=== PATIENT | female | born 1950 | race Caucasian/White ===

== ENCOUNTER 2021-08-29 10:31 | Inpatient (IN) ==
[2021-08-29 11:13] LABS: Appearance Urine Clear (Clear); Bilirubin Urine Negative (Negative); Blood Urine Negative (Negative); Color Urine Yellow; Glucose Urine UA 3+ (Negative); Ketones Urine Trace (Negative); Leukocyte Esterase Urine Negative (Negative); Nitrite Urine Negative (Negative); Protein Urine Negative (Negative); Specific Gravity Urine 1.033 (1.000-1.030); Urobilinogen Urine Negative (Negative); pH Urine 7.5 (4.5-7.5)
[2021-08-29] MEDS ORDERED: SODIUM CHLORIDE 0.9% 1000ML 1,000 ML IV SCH (11:15)
--- NOTE | 2021-08-29 11:25 | Emergency Department Note ---
Impression & Plan HHNC (hyperglycemic hyperosmolar nonketotic coma), Acute hyperkalemia, Acute dehydration, JOEL (acute kidney injury), Weakness ED Provider Note NAME: OSIRIS MARIE AGE: 70 SEX: F : 1950 ARRIVES VIA: Ambulance INFORMANT: Patient, ED PROVIDER(S): Saurabh Jain DO CHIEF COMPLAINT: Weakness HPI: The patient is a 70-year-old female who presented to the emergency department for an evaluation of generalized weakness. The patient does not have any medical issues. Apparently the patient does not see a physician and has not been seen for many years. She states that she started noticing generalized weakness frequency and polyuria and polydipsia over the course the last few weeks. Her son presented to the emergency department with her stating that she does not have any medical issues but he could tell that she has been having significant difficulty with ambulation as well as her thought process. There is been no reported trauma. The patient's been confused at times. She denies having any headache. She denies having any chest pain. She denies having any abdominal pain. She denies having any black or bloody bowel moods. She has had no recent traveling. She has not been seen by a provider because she has no primary care physician. She was noted to have an elevated blood sugar in triage. ROS: See above HPI for pertinent positives & negatives. A total of 10 systems reviewed and were otherwise negative. PAST MEDICAL HISTORY: See Below PAST SURGICAL HISTORY: See Below FAMILY HISTORY: See Below SOCIAL HISTORY: See Below HOME MEDICATIONS: See Below ALLERGIES: See Below VITALS: See Below PHYSICAL EXAMINATION: GENERAL: The patient is awake and answering questions appropriately. She is slow to answer questions. EYES: The conjunctivae are clear. The pupils are round and reactive. EARS, NOSE, MOUTH AND THROAT: The nose is without any evidence of any deformity. Mucous membranes are dry. NECK: The neck is nontender and supple. RESPIRATORY: Normal respiratory effort is noted there is no evidence of wheezing rhonchi or rales CARDIOVASCULAR: Regular rate and rhythm noted there no murmurs rubs or gallops normal S1 normal S2. GASTROINTESTINAL: The abdomen is soft. Abdomen is nontender. MUSCULOSKELETAL/EXTREMITIES: There is no evidence of gross deformity full range of motion is noted in the hips and shoulders. SKIN: There is no obvious evidence of any rash. There are no petechiae, pallor or cyanosis noted. NEUROLOGIC: Patient is awake and oriented to person place and situation. Strength is symmetric but diminished bilaterally. Patellar tendon reflexes are 2+ bilaterally. MEDICAL DECISION MAKING: The patient is a 70-year-old female who presented to the emergency department for generalized weakness and confusion. She is also been reporting polyuria and polydipsia. The patient was treated with IV fluids in the emergency department. She was reevaluated multiple times. The patient was also started on an insulin drip for presumed hyperglycemia with hyper kalemia and hyperosmolar state. I discussed patient's laboratory and radiographic studies with her. She was feeling much better on subsequent reevaluation. [facility] also [facility] They have agreed to evaluate the patient in the emergency department for further management and disposition. Triage Nursing notes reviewed. Prior medical records reviewed Vital Signs: reviewed and remarkable for elevated blood pressure Differential diagnosis: Infection, dehydration, metabolic abnormality, hypo/hyperglycemia, electrolyte disturbance, anemia, hypoxia, cardiac sources, intracerebral event, toxicologic, neurologic, as well as other pathologies. ER treatment provided: See below Diagnostics interpreted by me: ECG: EKG was obtained in the emergency department. My interpretation is normal sinus rhythm at 76 bpm. There is no ectopy. There is no acute ST segment abnormalities noted. No previous tracing was available. Cardiac Monitoring: An order was placed for continuous cardiac monitoring. The monitor shows a rate of 76 bpm with sinus rhythm. Laboratory studies: As stated above and show below. Imaging studies: See below Consultation(s): I discussed this case with Dr. Salazar who [facility] ED COURSE: Procedures: none Critical Care: I have personally spent greater than 55 minutes of critical care time in the direct management of this patient. This includes bedside care, interpretation of diagnostic studies, and testing, discussion with consultants, patient, and family members, and other required patient management activities. This 55 minutes is in excess of all separately billable procedures. Past Med/Surg History Medical History History of tobacco use Surgical History History of cholecystectomy Social History Smoking Status: Current every day smoker Feels Safe at Home: Yes Results & Data (ED) Vital Signs Vital Signs - 24 hr 08/29/21 10:42 08/29/21 11:28 Temperature 36.9 C Temperature Source Oral Pulse Rate 81 76 Pulse Rate [Apical] 81 Respiratory Rate 20 18 Respiratory Effort / Characteristics Non-Labored Spontaneous Respiratory Depth Normal Respiratory Pattern Regular Blood Pressure 217/61 H Blood Pressure [Right Arm] 217/61 H Blood Pressure Mean 113 Blood Pressure Mean [Right Arm] 113 Pulse Oximetry 94 94 Oxygen Delivery Method Room Air Room Air Sepsis Recent Fever Within 48 Hours No Sepsis New/Unexplained Change in Mental Status No Sepsis Action Taken by Nursing No Action Required Home Medications Current Medication List: was personally reviewed by me Laboratory Data Attestation: I reviewed the patient's lab results. Result diagrams: 08/29/21 11:10 08/29/21 11:10 Lab Results 08/29/21 08/29/21 08/29/21 Range/Units 10:51 10:59 11:10 WBC (4.8-10.8) K/uL RBC (4.2-5.4) M/uL Hgb (12.0-16.0) g/dL Hct (37-47) % MCV (80-100) fL MCH (25-34) pg MCHC (32-36) g/dL Plt Count (130-400) K/uL Immature Gran % (Auto) % Neut % (Auto) % Lymph % (Auto) % [place] % (Auto) % Eos % (Auto) % Baso % (Auto) % Neut # (Auto) (1.4-6.5) K/uL Lymph # (Auto) (1.2-3.4) K/uL [place] # (Auto) (0.11-0.59) K/uL Eos # (Auto) (0-0.5) K/uL Baso # (Auto) (0-0.2) K/uL Immature Gran # (Auto) (0.00-0.02) K/uL PT 10.3 (9.0-12.0) Seconds INR 1.0 (0.9-1.1) APTT 22.4 (21.0-31.0) Seconds PTT Ratio 0.8 VBG pH (7.36-7.41) VBG pCO2 (38-50) mmHg VBG pO2 mmHg VBG HCO3 mmol/L VBG O2 Saturation % VBG Base Excess mEq/L Barometric Pressure mm/Hg Sodium (136-145) mmol/L Potassium (3.5-5.1) mmol/L Chloride (98-107) mmol/L Carbon Dioxide (21-32) mmol/L Anion Gap (3-11) BUN (6-23) mg/dl Creatinine (0.6-1.2) mg/dl Est Cr Clr Drug Dosing ml/min Est GFR ( Amer) ml/min Est GFR (Non-Af Amer) ml/min BUN/Creatinine Ratio (10-20) Glucose (70-99(Fasting)) mg/dl POC Glucose > 600 H* (70-99) mg/dl Calcium (8.5-10.1) mg/dl Magnesium (1.7-2.4) mg/dl Total Bilirubin (0.2-1.0) mg/dl AST (13-39) U/L ALT (7-52) U/L Alkaline Phosphatase (34-104) U/L Total Creatine Kinase (26-192) U/L Troponin I High Sens (0-14) pg/ml Total Protein (6.0-8.3) gm/dl Albumin (3.4-5.0) gm/dl Globulin (2.5-4.0) gm/dl Albumin/Globulin Ratio (0.9-2) TSH (0.300-4.500) uIu/ml Urine Color Yellow Urine Appearance Clear (Clear) Urine pH 7.5 (4.5-7.5) Ur Specific [place] 1.033 H (1.000-1.030) Urine Protein Negative (Negative) Urine Glucose (UA) 3+ H (Negative) Urine Ketones Trace H (Negative) Urine Blood Negative (Negative) Urine Nitrite Negative (Negative) Urine Bilirubin Negative (Negative) Urine Urobilinogen Negative (Negative) Ur Leukocyte Esterase Negative (Negative) SARS-CoV-2, RNA, NAAT (NEGATIVE) 08/29/21 08/29/21 08/29/21 Range/Units 11:10 11:10 11:10 WBC 15.35 H (4.8-10.8) K/uL RBC 5.29 (4.2-5.4) M/uL Hgb 16.2 H (12.0-16.0) g/dL Hct 49.0 H (37-47) % MCV 92.6 (80-100) fL MCH 30.6 (25-34) pg MCHC 33.1 (32-36) g/dL Plt Count 344 (130-400) K/uL Immature Gran % (Auto) 0.3 % Neut % (Auto) 82.5 % Lymph % (Auto) 11.3 % [place] % (Auto) 5.5 % Eos % (Auto) 0.3 % Baso % (Auto) 0.1 % Neut # (Auto) 12.66 H (1.4-6.5) K/uL Lymph # (Auto) 1.73 (1.2-3.4) K/uL [place] # (Auto) 0.85 H (0.11-0.59) K/uL Eos # (Auto) 0.05 (0-0.5) K/uL Baso # (Auto) 0.01 (0-0.2) K/uL Immature Gran # (Auto) 0.05 H (0.00-0.02) K/uL PT (9.0-12.0) Seconds INR (0.9-1.1) APTT (21.0-31.0) Seconds PTT Ratio VBG pH (7.36-7.41) VBG pCO2 (38-50) mmHg VBG pO2 mmHg VBG HCO3 mmol/L VBG O2 Saturation % VBG Base Excess mEq/L Barometric Pressure mm/Hg Sodium 117 L* (136-145) mmol/L Potassium 6.7 H* (3.5-5.1) mmol/L Chloride 80 L (98-107) mmol/L Carbon Dioxide 25 (21-32) mmol/L Anion Gap 12 H (3-11) BUN 26 H (6-23) mg/dl Creatinine 1.30 H (0.6-1.2) mg/dl Est Cr Clr Drug Dosing 38.6 ml/min Est GFR ( Amer) 47.8 ml/min Est GFR (Non-Af Amer) 41.2 ml/min BUN/Creatinine Ratio 20.0 (10-20) Glucose 1223 H* (70-99(Fasting)) mg/dl POC Glucose (70-99) mg/dl Calcium 9.5 (8.5-10.1) mg/dl Magnesium 2.4 (1.7-2.4) mg/dl Total Bilirubin 0.6 (0.2-1.0) mg/dl AST 11 L (13-39) U/L ALT 16 (7-52) U/L Alkaline Phosphatase 127 H (34-104) U/L Total Creatine Kinase 51 (26-192) U/L Troponin I High Sens 11.0 (0-14) pg/ml Total Protein 7.8 (6.0-8.3) gm/dl Albumin 3.9 (3.4-5.0) gm/dl Globulin 3.9 (2.5-4.0) gm/dl Albumin/Globulin Ratio 1.0 (0.9-2) TSH 1.326 (0.300-4.500) uIu/ml Urine Color Urine Appearance (Clear) Urine pH (4.5-7.5) Ur Specific [place] (1.000-1.030) Urine Protein (Negative) Urine Glucose (UA) (Negative) Urine Ketones (Negative) Urine Blood (Negative) Urine Nitrite (Negative) Urine Bilirubin (Negative) Urine Urobilinogen (Negative) Ur Leukocyte Esterase (Negative) SARS-CoV-2, RNA, NAAT (NEGATIVE) 08/29/21 08/29/21 08/29/21 Range/Units 11:22 11:25 11:52 WBC (4.8-10.8) K/uL RBC (4.2-5.4) M/uL Hgb (12.0-16.0) g/dL Hct (37-47) % MCV (80-100) fL MCH (25-34) pg MCHC (32-36) g/dL Plt Count (130-400) K/uL Immature Gran % (Auto) % Neut % (Auto) % Lymph % (Auto) % [place] % (Auto) % Eos % (Auto) % Baso % (Auto) % Neut # (Auto) (1.4-6.5) K/uL Lymph # (Auto) (1.2-3.4) K/uL [place] # (Auto) (0.11-0.59) K/uL Eos # (Auto) (0-0.5) K/uL Baso # (Auto) (0-0.2) K/uL Immature Gran # (Auto) (0.00-0.02) K/uL PT (9.0-12.0) Seconds INR (0.9-1.1) APTT (21.0-31.0) Seconds PTT Ratio VBG pH 7.37 (7.36-7.41) VBG pCO2 48 (38-50) mmHg VBG pO2 43 mmHg VBG HCO3 27 mmol/L VBG O2 Saturation 74.8 % VBG Base Excess 1.3 mEq/L Barometric Pressure 733.2 mm/Hg Sodium (136-145) mmol/L Potassium (3.5-5.1) mmol/L Chloride (98-107) mmol/L Carbon Dioxide (21-32) mmol/L Anion Gap (3-11) BUN (6-23) mg/dl Creatinine (0.6-1.2) mg/dl Est Cr Clr Drug Dosing ml/min Est GFR ( Amer) ml/min Est GFR (Non-Af Amer) ml/min BUN/Creatinine Ratio (10-20) Glucose (70-99(Fasting)) mg/dl POC Glucose > 600 H* (70-99) mg/dl Calcium (8.5-10.1) mg/dl Magnesium (1.7-2.4) mg/dl Total Bilirubin (0.2-1.0) mg/dl AST (13-39) U/L ALT (7-52) U/L Alkaline Phosphatase (34-104) U/L Total Creatine Kinase (26-192) U/L Troponin I High Sens (0-14) pg/ml Total Protein (6.0-8.3) gm/dl Albumin (3.4-5.0) gm/dl Globulin (2.5-4.0) gm/dl Albumin/Globulin Ratio (0.9-2) TSH (0.300-4.500) uIu/ml Urine Color Urine Appearance (Clear) Urine pH (4.5-7.5) Ur Specific [place] (1.000-1.030) Urine Protein (Negative) Urine Glucose (UA) (Negative) Urine Ketones (Negative) Urine Blood (Negative) Urine Nitrite (Negative) Urine Bilirubin (Negative) Urine Urobilinogen (Negative) Ur Leukocyte Esterase (Negative) SARS-CoV-2, RNA, NAAT NEGATIVE (NEGATIVE) 08/29/21 Range/Units 12:29 WBC (4.8-10.8) K/uL RBC (4.2-5.4) M/uL Hgb (12.0-16.0) g/dL Hct (37-47) % MCV (80-100) fL MCH (25-34) pg MCHC (32-36) g/dL Plt Count (130-400) K/uL Immature Gran % (Auto) % Neut % (Auto) % Lymph % (Auto) % [place] % (Auto) % Eos % (Auto) % Baso % (Auto) % Neut # (Auto) (1.4-6.5) K/uL Lymph # (Auto) (1.2-3.4) K/uL [place] # (Auto) (0.11-0.59) K/uL Eos # (Auto) (0-0.5) K/uL Baso # (Auto) (0-0.2) K/uL Immature Gran # (Auto) (0.00-0.02) K/uL PT (9.0-12.0) Seconds INR (0.9-1.1) APTT (21.0-31.0) Seconds PTT Ratio VBG pH (7.36-7.41) VBG pCO2 (38-50) mmHg VBG pO2 mmHg VBG HCO3 mmol/L VBG O2 Saturation % VBG Base Excess mEq/L Barometric Pressure mm/Hg Sodium (136-145) mmol/L Potassium (3.5-5.1) mmol/L Chloride (98-107) mmol/L Carbon Dioxide (21-32) mmol/L Anion Gap (3-11) BUN (6-23) mg/dl Creatinine (0.6-1.2) mg/dl Est Cr Clr Drug Dosing ml/min Est GFR ( Amer) ml/min Est GFR (Non-Af Amer) ml/min BUN/Creatinine Ratio (10-20) Glucose (70-99(Fasting)) mg/dl POC Glucose > 600 H* (70-99) mg/dl Calcium (8.5-10.1) mg/dl Magnesium (1.7-2.4) mg/dl Total Bilirubin (0.2-1.0) mg/dl AST (13-39) U/L ALT (7-52) U/L Alkaline Phosphatase (34-104) U/L Total Creatine Kinase (26-192) U/L Troponin I High Sens (0-14) pg/ml Total Protein (6.0-8.3) gm/dl Albumin (3.4-5.0) gm/dl Globulin (2.5-4.0) gm/dl Albumin/Globulin Ratio (0.9-2) TSH (0.300-4.500) uIu/ml Urine Color Urine Appearance (Clear) Urine pH (4.5-7.5) Ur Specific [place] (1.000-1.030) Urine Protein (Negative) Urine Glucose (UA) (Negative) Urine Ketones (Negative) Urine Blood (Negative) Urine Nitrite (Negative) Urine Bilirubin (Negative) Urine Urobilinogen (Negative) Ur Leukocyte Esterase (Negative) SARS-CoV-2, RNA, NAAT (NEGATIVE) Administered Medications Sodium Chloride (Nss 1000ml) 1,000 mls @ 999 mls/hr IV .Q1H1M ONE Stop: 08/29/21 13:11 Last Admin: 08/29/21 12:23 Dose: 999 mls/hr Documented by: [id number] Discontinued Medications Sodium Chloride (Nss 1000ml) 1,000 mls @ 999 mls/hr IV .Q1H1M FAREED Stop: 08/29/21 12:15 Last Infusion: 08/29/21 11:57 Dose: 0 mls/hr Documented by: [id number] Admin: 08/29/21 11:28 Dose: 999 mls/hr Documented by: [id number] Imaging Data Radiologist's Impression: Head CT 08/29/21 11:05 CT SCAN OF THE BRAIN WITHOUT IV CONTRAST CLINICAL HISTORY: Generalized weakness. COMPARISON STUDY: No priors. TECHNIQUE: Unenhanced axial CT scan of the brain is performed from the vertex to the skull base. A dose lowering technique was utilized adhering to the principles of ALARA. CT DOSE: 537.48 mGy.cm FINDINGS: Brain parenchyma: There are age-related involutional changes noting mild subcortical and periventricular microangiopathic change. There is no hemorrhage, mass effect, or evidence of acute territorial ischemia by CT criteria. Yu- white matter differentiation is preserved. No extra-axial fluid collection is seen. Ventricles, sulci, cisterns: Prominent secondary to involutional change. Intracranial vasculature: There is atherosclerotic calcification of the cavernous carotid and vertebral arteries. Calvarium: Unremarkable. Sinuses and mastoids: There is trace mucosal thickening within the ethmoid sinuses. The remaining visualized paranasal sinuses are clear. The mastoid air cells are well pneumatized. Orbits: The bony orbits are grossly intact. IMPRESSION: There is no hemorrhage, mass effect, or evidence of acute territor ial ischemia by CT criteria. ACT 112: Negative or not required by law. Electronically signed by: Amanuel Lainez M.D. 08/29/2021 12:11 PM Chest X-Ray 08/29/21 11:06 SINGLE VIEW CHEST CLINICAL HISTORY: Generalized weakness. FINDINGS: An AP, portable, upright chest radiograph is obtained. No prior studies are available for comparison at the time of dictation. The examination i s degraded by portable technique and patient rotation. The heart is top normal for projection noting atherosclerotic calcification of the thoracic aorta. The pulmonary vasculature is noncongested. There is mild bibasilar scarring/atelectasis. The lungs and pleural spaces are otherwise clear. No pneu mothorax is seen. The skeletal structures are osteopenic. The bony thorax is grossly intact. IMPRESSION: No active disease in the chest. ACT 112: Negative or not required by law. Electronically signed by: Amanuel Lainez M.D. 08/29/2021 12:35 PM Discharge Plan Visit Data Chief Complaint: Hyperglycemia Stated Complaint: HYPERGLYCEMIA ED Provider: Saurabh Jain Discharge Problem: HHNC (hyperglycemic hyperosmolar nonketotic coma), Acute hyperkalemia, Acute dehydration, JOEL (acute kidney injury), Weakness Patient Disposition: Being Evaluated by Hospitalist Forms Stand Alone Forms: My [facility] Referrals Referrals: PCP,NO [Primary Care Provider] -
[2021-08-29 11:33] LABS: Partial Thromboplastin Ratio 0.8; Partial Thromboplastin Time 22.4 Seconds (21.0-31.0); Prothrombin Time 10.3 Seconds (9.0-12.0)
[2021-08-29 11:54] LABS: Basophils # (auto) 0.01 K/uL (0-0.2); Basophils % (auto) 0.1 %; Eosinophils # (auto) 0.05 K/uL (0-0.5); Eosinophils % (auto) 0.3 %; Hemoglobin 16.2 g/dL (12.0-16.0); Immature Granulocytes # (auto) 0.05 K/uL (0.00-0.02); Immature Granulocytes % (auto) 0.3 %; Lymphocytes # (auto) 1.73 K/uL (1.2-3.4); Lymphocytes % (auto) 11.3 %; Mean Corpuscular Hemoglobin 30.6 pg (25-34); Mean Corpuscular Hgb Conc 33.1 g/dL (32-36); Mean Corpuscular Volume 92.6 fL (80-100); Monocytes # (auto) 0.85 K/uL (0.11-0.59); Monocytes % (auto) 5.5 %; Neutrophils # (auto) 12.66 K/uL (1.4-6.5); Neutrophils % (auto) 82.5 %; Platelet Count 344 K/uL (130-400); Red Blood Count 5.29 M/uL (4.2-5.4); White Blood Count 15.35 K/uL (4.8-10.8)
[2021-08-29 12:07] LABS: Albumin Level 3.9 gm/dl (3.4-5.0); Bilirubin,Total 0.6 mg/dl (0.2-1.0); Calcium 9.5 mg/dl (8.5-10.1); Creatinine Clr Calc Pharmacy 38.6 ml/min; Est GFR (African American) 47.8 ml/min; Est GFR (Non-African American) 41.2 ml/min; Globulin 3.9 gm/dl (2.5-4.0); Magnesium 2.4 mg/dl (1.7-2.4); Potassium 6.7 mmol/L (3.5-5.1); Total Protein 7.8 gm/dl (6.0-8.3)
[2021-08-29 12:11] LABS: Base Excess VBG 1.3 mEq/L; Oxygen Saturation VBG 74.8 %; pH VBG 7.37 (7.36-7.41)
[2021-08-29] MEDS ORDERED: GLUCOSE 10 TABS/TUBE PO PRN (12:11)
[2021-08-29] MEDS ORDERED: DEXTROSE 50% 50 ML SYRINGE IV PRN (12:11)
[2021-08-29] MEDS ORDERED: STAT INSULIN DRIP STA (12:11)
[2021-08-29] MEDS ORDERED: GLUCAGON FOR INJ 1 MG VIAL SQ PRN (12:11)
[2021-08-29] MEDS ORDERED: GLUCOSE 40% GEL 15 GM TUBE PO PRN (12:11)
[2021-08-29] MEDS ORDERED: SODIUM CHLORIDE 0.9% 1000ML 1,000 ML IV ONE (12:11)
[2021-08-29] MEDS ORDERED: HHS GOAL RANGE 250-350 mg/dl ONE (12:11)
[2021-08-29] MEDS ORDERED: CARBOHYDRATES FOR HYPOGLYCEMIA PO PRN (12:11)
--- NOTE | 2021-08-29 12:12 | CT Scan Report ---
CT SCAN OF THE BRAIN WITHOUT IV CONTRAST CLINICAL HISTORY: Generalized weakness. COMPARISON STUDY: No priors. TECHNIQUE: Unenhanced axial CT scan of the brain is performed from the vertex to the skull base. A do se lowering technique was utilized adhering to the principles of ALARA. CT DOSE: 537.48 mGy.cm FINDINGS: Brain parenchyma: There are age-related involutional changes noting mild subcortical and periventric ular microangiopathic change. There is no hemorrhage, mass effect, or evidence of acute territorial i schemia by CT criteria. Yu-white matter differentiation is preserved. No extra-axial fluid collecti on is seen. Ventricles, sulci, cisterns: Prominent secondary to involutional change. Intracranial vasculature: There is atherosclerotic calcification of the cavernous carotid and vertebr al arteries. Calvarium: Unremarkable. Sinuses and mastoids: There is trace mucosal thickening within the ethmoid sinuses. The remaining vis ualized paranasal sinuses are clear. The mastoid air cells are well pneumatized. Orbits: The bony orbits are grossly intact. IMPRESSION: There is no hemorrhage, mass effect, or evidence of acute territorial ischemia by CT francisco sherwood. ACT 112: Negative or not required by law. Electronically signed by: Amanuel Lainez M.D. 08/29/2021 12:11 PM
[2021-08-29] MEDS ORDERED: NovoLIN-R BOLUS FROM BAG IV ONE (12:15)
[2021-08-29] MEDS ORDERED: CALCIUM CHLORIDE 10% 1,000 MG in DEXTROSE 5% 50 ML IV STA (12:25)
--- NOTE | 2021-08-29 12:37 | XRay Report ---
SINGLE VIEW CHEST CLINICAL HISTORY: Generalized weakness. FINDINGS: An AP, portable, upright chest radiograph is obtained. No prior studies are available for c omparison at the time of dictation. The examination is degraded by portable technique and patient rot ation. The heart is top normal for projection noting atherosclerotic calcification of the thoracic ao rta. The pulmonary vasculature is noncongested. There is mild bibasilar scarring/atelectasis. The dion gs and pleural spaces are otherwise clear. No pneumothorax is seen. The skeletal structures are osteo penic. The bony thorax is grossly intact. IMPRESSION: No active disease in the chest. ACT 112: Negative or not required by law. Electronically signed by: Amanuel Lainez M.D. 08/29/2021 12:35 PM
[2021-08-29] MEDS: INSULIN REGULAR 250 UNITS in SODIUM CHLORIDE 0.9% 247.5 ML IV SCH (13:08)
[2021-08-29] MEDS ORDERED: PHARMACY GLYCEMIC MGMT CONSULT PRN (13:17)
--- NOTE | 2021-08-29 13:32 | History & Physical Report ---
Date of Service August 29, 2021 Assessment & Plan (1) Type 2 diabetes mellitus with hyperosmolar hyperglycemic state (HHS): Plan: No known history of diabetes and have not been to a doctor for more than 10 years Polyuria polydipsia for a while and increasing weakness with increasing thirst for the last 1 and half week No fever and no chills and no infection She has been using a lot of water and juice recently to decreased thirst Has hyperosmolar hyperglycemic diabetic state with a blood sugar of more than 1200 and associated hyponatremia and hyperkalemia with JOEL Started on intravenous insulin and adequate fluid management Glycemic pharmacist has been consulted Monitor PRP and electrolytes (2) Acute hyperkalemia: Plan: Potassium noted to be high at 6.7 Secondary to JOEL and dehydration Will monitor and is expected to improve (3) JOEL (acute kidney injury): Plan: Creatinine is elevated at 1.30 Likely secondary to dehydration Will monitor (4) Pseudohyponatremia: Plan: Sodium level noted to be 117 Secondary to hyperglycemia Will monitor (5) Acute dehydration: Plan: As above (6) Hypertension: Plan: Systolic blood pressure is high at 217 Will start Norvasc (7) Tobacco abuse: Plan: Mild tobacco abuse Will watch for any withdrawal symptoms DVT prophylaxis Subcu Lovenox CODE STATUS Full History of Present Illness Chief Complaint: Progressive weakness with increasing thirst for the last 1-1/2-week and slurred speech for the last day or 2 Primary Care Provider: NO PCP She is a 70-year-old female without significant known past medical history , have not been to a doctor for more than 10 years and been a chronic smoker apparently complaining of increasing weakness with thirst for the last 1-1/2- week. She was also noted to be very dry in her mouth with difficulty speaking and may have mild confusion associated with it. She has had polyuria and polydipsia for a while. Denies any fever and/or chills, any abdominal pain nausea and or vomiting, denies any cough and/or shortness of breath and denies any pain in the chest. No numbness and or tingling involving any of the extremities. She was noted to have a very high blood sugar in the emergency room of more than 1200 with JOEL and systolic high blood pressure at 217. She was a started with intravenous insulin and IV fluid and was admitted to telemetry unit for continuation of care. Allergies Allergy/AdvReac Type Severity Reaction Status Date / Time No Known Allergies Allergy Unverified 08/29/21 13:18 Home Medications Medication Instructions Recorded Confirmed Type No Known Home Medications 08/29/21 08/29/21 History Past Med/Surg History Medical History History of tobacco use Surgical History History of cholecystectomy Social History Smoking Status: Current every day smoker Cigarettes Per Day: 10; Second Hand Exposure: No; Do You Dip or Chew Tobacco: No; Tobacco Cessation Education Requested by Patient: No Hx Alcohol Use: Yes Hx Substance Use: No Preferred Language: Com[place]an Communication Ability: Effective Tool Repairer Required: No Beliefs That Will Affect Care: None Current Living Situation: Alone Other Information That Helps Us Care for You: No Feels Safe at Home: Yes Safety Concerns: Feels Safe At This Time Assistive Devices: None Review of Systems Review of Systems: All systems reviewed & are unremarkable except as noted in HPI & below Physical Exam Physical Exam: Lying in bed comfortably Constitutional: + ill appearing and average body habitus Eyes: PERRL, conjunctivae normal, anicteric sclerae ENMT: external ear and nose normal, oropharynx normal Neck: trachea midline, no thyromegaly Respiratory: no respiratory distress Auscultation: + diminished lung sounds; no crackles and no wheezes Cardiovascular: Rate/Rhythm: regular rate and regular rhythm; not tachycardic Heart Sounds: normal S1 and normal S2; no murmur Extremities: no edema Gastrointestinal (Abdomen): Inspection/Auscultation: normal bowel sounds; abdomen not distended Percussion/Palpation: abdomen soft; abdomen nontender Musculoskeletal: No acute arthritis involving any joint Skin: Very dry Neurologic: PERRL, EOMI, accommodation nl, no face palsy, no dysarthria Psychiatric: A+Ox3, euthymic affect Lymphatic: no cervical or axillary lymphadenopathy Results & Data Results & Data ([facility]) Vital Signs (Past 12 Hours) Vital Signs Temp Pulse Pulse Resp BP BP Pulse Ox 08/29/21 11:28 76 18 94 08/29/21 10:42 36.9 C 81 81 20 217/61 H 217/61 H 94 Laboratory Results Short CBC 08/29/21 Range/Units 11:10 WBC 15.35 H (4.8-10.8) K/uL Hgb 16.2 H (12.0-16.0) g/dL Hct 49.0 H (37-47) % Plt Count 344 (130-400) K/uL BMP 08/29/21 11:10 Sodium 117 L* Potassium 6.7 H* Chloride 80 L Carbon Dioxide 25 BUN 26 H Creatinine 1.30 H Glucose 1223 H* Calcium 9.5 Cardiac Enzymes 08/29/21 Range/Units 11:10 Total Creatine Kinase 51 (26-192) U/L Liver Function 08/29/21 Range/Units 11:10 Total Bilirubin 0.6 (0.2-1.0) mg/dl AST 11 L (13-39) U/L ALT 16 (7-52) U/L Alkaline Phosphatase 127 H (34-104) U/L Albumin 3.9 (3.4-5.0) gm/dl Urine 08/29/21 Range/Units 10:59 Urine Color Yellow Urine Appearance Clear (Clear) Urine pH 7.5 (4.5-7.5) Ur Specific [place] 1.033 H (1.000-1.030) Urine Protein Negative (Negative) Urine Glucose (UA) 3+ H (Negative) Medications Administered Current Inpatient Medications Amlodipine Besylate (Amlodipine Besylate 5 Mg Tab) 5 mg PO QAM FAREED Stop: 09/28/21 13:29 Dextrose (Dextrose 50% 50 Ml Syringe) 25 - 50 ml IV UD PRN; Protocol PRN Reason: Hypoglycemia Protocol Stop: 09/28/21 12:10 Enoxaparin Sodium (Enoxaparin Inj 40 Mg/0.4 Ml Syr) 40 mg SQ QAM FAREED Stop: 09/28/21 13:14 Glucagon (Glucagon For Inj 1 Mg Vial) 1 mg SQ UD PRN; Protocol PRN Reason: Hypoglycemia Protocol Stop: 09/28/21 12:10 Glucose (Glucose 10 Tabs/Tube) 4 - 8 tabs PO UD PRN; Protocol PRN Reason: Hypoglycemia Protocol Stop: 09/28/21 12:10 Glucose (Glucose 40% Gel 15 Gm Tube) 15 - 30 gm PO UD PRN; Protocol PRN Reason: Hypoglycemia Protocol Stop: 09/28/21 12:10 Insulin Human Regular 250 (units/ Sodium Chloride) 250 mls @ 7.2 mls/hr IV .Q24H FAREED; Protocol Stop: 09/28/21 12:14 Last Admin: 08/29/21 13:08 Dose: 7.2 units/hr, 7.2 mls/hr Documented by: Sodium Chloride (Nss 1000ml) 1,000 mls @ 200 mls/hr IV .Q5H FAREED Stop: 08/30/21 04:29 Insulin Aspart (Insulin Aspart Per Unit) 0 units SC ACHS [facility] Stop: 09/28/21 16:29 Miscellaneous (Carbohydrates For Hypoglycemia ) 15 - 30 gm PO UD PRN PRN Reason: Hypoglycemia Protocol Stop: 09/28/21 12:10 Miscellaneous Information (Pharmacy Glycemic Mgmt Consult) 1 ea N/A UD PRN PRN Reason: Consult Stop: 09/28/21 13:16 Code Status & VTE Plan VTE Prophylaxis Plan VTE Prophylaxis will be ordered: Yes
[2021-08-29] MEDS: SODIUM CHLORIDE 0.9% 1000ML 1,000 ML IV SCH ×2 (14:48→20:22)
[2021-08-29 14:51] LABS: BUN Creatinine Ratio 19.5 (10-20); Calcium 10.1 mg/dl (8.5-10.1); Creatinine Clr Calc Pharmacy 44.4 ml/min; Est GFR (African American) 56.6 ml/min; Est GFR (Non-African American) 48.9 ml/min; Magnesium 2.2 mg/dl (1.7-2.4); Phosphorus 3.5 mg/dl (2.5-4.9); Potassium 4.6 mmol/L (3.5-5.1)
[2021-08-29] MEDS: amLODIPine BESYLATE 5 MG TAB PO SCH (15:41)
[2021-08-29] MEDS: ENOXAPARIN INJ 40 MG/0.4 ML SYR SQ SCH (15:41)
[2021-08-29] MEDS: INSULIN ASPART PER UNIT SC SCH ×2 (16:53→21:31)
[2021-08-29 18:44] LABS: BUN Creatinine Ratio 18.8 (10-20); Calcium 9.5 mg/dl (8.5-10.1); Creatinine Clr Calc Pharmacy 49.7 ml/min; Est GFR (African American) 64.9 ml/min; Phosphorus 2.1 mg/dl (2.5-4.9)
[2021-08-29] MEDS: NSS + 20MEQ KCL 20 MEQ/1,000 ML BAG IV SCH (21:00)
[2021-08-29 21:43] LABS: BUN Creatinine Ratio 19.5 (10-20); Calcium 9.2 mg/dl (8.5-10.1); Creatinine Clr Calc Pharmacy 57.7 ml/min; Est GFR (African American) 77.7 ml/min; Magnesium 1.9 mg/dl (1.7-2.4); Phosphorus 2.3 mg/dl (2.5-4.9); Potassium 3.8 mmol/L (3.5-5.1)
[2021-08-30] MEDS: NSS + 20MEQ KCL 20 MEQ/1,000 ML BAG IV SCH ×3 (06:17→19:47)
[2021-08-30 06:58] LABS: Hematocrit (blood only) 37.8 % (37-47); Hemoglobin 12.4 g/dL (12.0-16.0); Mean Corpuscular Hemoglobin 30.2 pg (25-34); Mean Corpuscular Hgb Conc 32.8 g/dL (32-36); Mean Corpuscular Volume 92.2 fL (80-100); Mean Platelet Volume 11.6 fL (7.4-10.4); Platelet Count 278 K/uL (130-400); RDW Coefficient of Variation 12.9 % (11.5-14.5); RDW Standard Deviation 43.7 fL (36.4-46.3); White Blood Count 17.17 K/uL (4.8-10.8)
--- NOTE | 2021-08-30 07:02 | Electrocardiogram Report ---
Test Reason : Blood Pressure : / mmHG Vent. Rate : 076 BPM Atrial Rate : 076 BPM P-R Int : 120 ms QRS Dur : 086 ms QT Int : 374 ms P-R-T Axes : 007 057 054 degrees QTc Int : 420 ms Normal sinus rhythm Normal ECG No previous ECGs available Confirmed by Donnell Alvarado ([id number]) on 08/30/2021 7:02:14 AM Referred By: Confirmed By:Donnell Alvarado
[2021-08-30 07:22] LABS: Basophils # (auto) 0.04 K/uL (0-0.2); Basophils % (auto) 0.2 %; Eosinophils # (auto) 0.41 K/uL (0-0.5); Eosinophils % (auto) 2.4 %; Immature Granulocytes # (auto) 0.06 K/uL (0.00-0.02); Immature Granulocytes % (auto) 0.3 %; Lymphocytes # (auto) 4.29 K/uL (1.2-3.4); Monocytes # (auto) 1.16 K/uL (0.11-0.59); Monocytes % (auto) 6.8 %; Neutrophils # (auto) 11.21 K/uL (1.4-6.5); Neutrophils % (auto) 65.3 %
[2021-08-30 07:25] LABS: Albumin Globulin Ratio 1.1 (0.9-2); Albumin Level 2.9 gm/dl (3.4-5.0); BUN Creatinine Ratio 20.5 (10-20); Bilirubin,Total 0.6 mg/dl (0.2-1.0); Calcium 8.5 mg/dl (8.5-10.1); Creatinine Clr Calc Pharmacy 64.3 ml/min; Est GFR (African American) 88.6 ml/min; Est GFR (Non-African American) 76.5 ml/min; Globulin 2.7 gm/dl (2.5-4.0); Potassium 4.5 mmol/L (3.5-5.1); Total Protein 5.6 gm/dl (6.0-8.3)
[2021-08-30] MEDS ORDERED: INSULIN GLARGINE SOLOSTAR 100 UNITS/ML 3 ML PEN SC ONE ×2 (08:30→09:15)
[2021-08-30] MEDS: INSULIN ASPART PER UNIT SC SCH ×5 (08:40→23:23)
[2021-08-30] MEDS: ENOXAPARIN INJ 40 MG/0.4 ML SYR SQ SCH (08:43)
[2021-08-30] MEDS: amLODIPine BESYLATE 5 MG TAB PO SCH (08:43)
[2021-08-30 09:00] LABS: Estimated Average Glucose 346 mg/dl; Hemoglobin A1C 13.7 % (4.5-5.6)
--- NOTE | 2021-08-30 09:53 | Pharmacy Report ---
Pharmacy Glycemic Short Note 2 - Date of Service August 30, 2021 - Glycemic Short BSG Results (Last 24 hours): 08/29/21 08/29/21 08/29/21 10:51 11:10 11:25 Glucose 1223 H* POC Glucose > 600 H* > 600 H* 08/29/21 08/29/21 08/29/21 12:29 14:14 14:14 Glucose 640 H* Cancelled POC Glucose > 600 H* 08/29/21 08/29/21 08/29/21 15:36 16:29 17:02 Glucose 347 H* POC Glucose 466 H* 389 H* 08/29/21 08/29/21 08/29/21 17:29 18:46 19:41 Glucose POC Glucose 296 H 248 H 213 H 08/29/21 08/29/21 08/29/21 21:12 21:25 23:24 Glucose 157 H POC Glucose 162 H 91 08/29/21 08/30/21 08/30/21 23:45 00:42 01:00 Glucose POC Glucose 272 H 214 H 193 H 08/30/21 08/30/21 08/30/21 01:14 01:29 01:42 Glucose POC Glucose 209 H 185 H 193 H 08/30/21 08/30/21 08/30/21 01:59 02:32 03:00 Glucose POC Glucose 188 H 206 H 192 H 08/30/21 08/30/21 08/30/21 04:02 05:05 05:56 Glucose 210 H POC Glucose 194 H 221 H 08/30/21 08/30/21 08/30/21 06:06 07:13 08:30 Glucose POC Glucose 201 H 238 H > 600 H* 08/30/21 08/30/21 08/30/21 08:31 09:01 09:02 Glucose POC Glucose 340 H* 372 H* 335 H* OUTPATIENT ANTIDIABETIC REGIMEN: * n/a * A1c - 13.7% ASSESSMENT: * 70 year old female admitted with hyperglycemia/HHS, JOEL. Per notes, patient has not been to a doctor in more than 10 years. * Started on insulin drip on arrival per [facility] protocol. Insulin drip held since midnight as BSGs less than lower end of goal range. Spoke with RN this morning and had him resume insulin drip/goal range was adjusted. BSGs trending up due to patient now eating and insulin drip just now resumed * Hard to assess insulin needs since drip held overnight, plan to trial Lantus dose stressed in between 2-3 dosing to help with insulin drip transition. Will continue to monitor today and likely could d/c insulin drip in 4-6 hours as long as blood sugars stable PLAN FOR INPATIENT GLYCEMIC CONTROL: * Hold outpatient oral diabetes medications * Basal insulin * Lantus 30 units x 1 ( to overlap with insulin drip ) * Will reassess Lantus dosing tomorrow AM * Bolus insulin - utilize insulin drip calculator, will adjust to below parameters once insulin drip off * NovoLog per scale ACHS or Q6hrs while NPO * Goal Range: Low 110 mg/dL - High 140 mg/dL * Correction Factor: 30 mg/dL/unit * Nutritional / Prandial insulin per carb ratio of 1 unit per 10 grams CHO consumed
[2021-08-30] MEDS: INSULIN REGULAR 250 UNITS in SODIUM CHLORIDE 0.9% 247.5 ML IV SCH (13:01)
--- NOTE | 2021-08-30 17:19 | Hospitalist Progress Note ---
Date of Service August 30, 2021 Assessment & Plan (1) Type 2 diabetes mellitus with hyperosmolar hyperglycemic state (HHS): Plan: No known history of diabetes and have not been to a doctor for more than 10 years Polyuria polydipsia for a while and increasing weakness with increasing thirst for the last 1 and half week No fever and no chills and no infection She has been using a lot of water and juice recently to decreased thirst Has hyperosmolar hyperglycemic diabetic state with a blood sugar of more than 1200 and associated hyponatremia and hyperkalemia with JOEL Started on intravenous insulin and adequate fluid management Glycemic pharmacist has been consulted Monitor PRP and electrolytes Electrolytes and kidney function normalized She has been started with subcutaneous insulin Diabetic teaching, PT and OT and likely discharge tomorrow (2) Acute hyperkalemia: Plan: Potassium noted to be high at 6.7 Secondary to JOEL and dehydration Will monitor and is expected to improve Potassium became normal (3) JOEL (acute kidney injury): Plan: Creatinine is elevated at 1.30 Likely secondary to dehydration Will monitor-normalized (4) Pseudohyponatremia: Plan: Sodium level noted to be 117 Secondary to hyperglycemia Will monitor-sodium level has been normalized (5) Acute dehydration: Plan: As above Blood pressure is controlled (6) Hypertension: Plan: Systolic blood pressure is high at 217 Will start Norvasc-hypertension is controlled to (7) Tobacco abuse: Plan: Mild tobacco abuse Will watch for any withdrawal symptoms DVT prophylaxis Subcu Lovenox CODE STATUS Full Admission and Anticipated Discharge Date Admission Date: August 29, 2021 Subjective 08/30/2021 The patient was seen and examined in telemetry unit She has been feeling a lot better and is off her insulin drip Denies any significant symptoms Review of Systems Review of Systems: All systems reviewed and are unremarkable except as noted below Physical Exam Physical Exam: Lying in bed comfortably Constitutional: average body habitus; not ill appearing Eyes: PERRL, conjunctivae normal, anicteric sclerae ENMT: external ear and nose normal, oropharynx normal Neck: trachea midline, no thyromegaly Respiratory: no respiratory distress Auscultation: lungs clear to auscultation bilaterally and + diminished lung sounds; no crackles Cardiovascular: Rate/Rhythm: regular rate and regular rhythm; not tachycardic Heart Sounds: normal S1 and normal S2; no murmur Extremities: no edema Gastrointestinal (Abdomen): Inspection/Auscultation: normal bowel sounds; abdomen not distended Percussion/Palpation: abdomen soft; abdomen nontender Musculoskeletal: No acute arthritis in any joint Neurologic: Alert, awake and oriented x3. No focal sensory or no motor deficit appreciated Psychiatric: A+Ox3, euthymic affect Results & Data Results & Data ([facility]) Vital Signs (Past 12 Hours) Vital Signs Temp Pulse Resp BP Pulse Ox 08/30/21 16:03 36.8 C 62 18 134/62 97 08/30/21 12:08 36.8 C 61 18 111/68 97 08/30/21 07:42 36.8 C 70 16 135/64 106 H Laboratory Results Short CBC 08/30/21 Range/Units 05:56 WBC 17.17 H (4.8-10.8) K/uL Hgb 12.4 D (12.0-16.0) g/dL Hct 37.8 (37-47) % Plt Count 278 (130-400) K/uL [facility] 08/29/21 08/29/21 08/30/21 17:02 21:12 05:56 Sodium 136 139 136 Potassium 4.0 3.8 4.5 Chloride 101 104 106 Carbon Dioxide 28 29 24 BUN 19 17 16 Creatinine 1.01 0.87 0.78 Glucose 347 H* 157 H 210 H Calcium 9.5 9.2 8.5 Liver Function 08/30/21 Range/Units 05:56 Total Bilirubin 0.6 (0.2-1.0) mg/dl AST 13 (13-39) U/L ALT 11 (7-52) U/L Alkaline Phosphatase 73 (34-104) U/L Albumin 2.9 L (3.4-5.0) gm/dl Medications Administered Short CBC 08/30/21 Range/Units 05:56 WBC 17.17 H (4.8-10.8) K/uL Hgb 12.4 D (12.0-16.0) g/dL Hct 37.8 (37-47) % Plt Count 278 (130-400) K/uL [facility] 08/29/21 08/29/21 08/30/21 17:02 21:12 05:56 Sodium 136 139 136 Potassium 4.0 3.8 4.5 Chloride 101 104 106 Carbon Dioxide 28 29 24 BUN 19 17 16 Creatinine 1.01 0.87 0.78 Glucose 347 H* 157 H 210 H Calcium 9.5 9.2 8.5 Liver Function 08/30/21 Range/Units 05:56 Total Bilirubin 0.6 (0.2-1.0) mg/dl AST 13 (13-39) U/L ALT 11 (7-52) U/L Alkaline Phosphatase 73 (34-104) U/L Albumin 2.9 L (3.4-5.0) gm/dl
[2021-08-30 22:18] LABS: Appearance Urine Cloudy (Clear); Bacteria Urine Automated 4+ (Negative); Bilirubin Urine Negative (Negative); Blood Urine Negative (Negative); Color Urine Yellow; Epithelial Cell Urine Auto >30 /lpf (0-5); Glucose Urine UA 2+ (Negative); Ketones Urine Trace (Negative); Leukocyte Esterase Urine 2+ (Negative); Nitrite Urine Positive (Negative); Protein Urine Negative (Negative); Urobilinogen Urine Negative (Negative); WBC Urine Automated >30 /hpf (0-5)
[2021-08-31] MEDS: NSS + 20MEQ KCL 20 MEQ/1,000 ML BAG IV SCH ×4 (02:17→21:19)
[2021-08-31] MEDS: INSULIN ASPART PER UNIT SC SCH ×5 (03:51→20:27)
[2021-08-31 06:09] LABS: Basophils # (auto) 0.04 K/uL (0-0.2); Basophils % (auto) 0.3 %; Eosinophils % (auto) 3.9 %; Hematocrit (blood only) 36.2 % (37-47); Hemoglobin 11.8 g/dL (12.0-16.0); Immature Granulocytes # (auto) 0.04 K/uL (0.00-0.02); Immature Granulocytes % (auto) 0.3 %; Lymphocytes # (auto) 4.27 K/uL (1.2-3.4); Mean Corpuscular Hemoglobin 30.1 pg (25-34); Mean Corpuscular Hgb Conc 32.6 g/dL (32-36); Mean Corpuscular Volume 92.3 fL (80-100); Mean Platelet Volume 11.4 fL (7.4-10.4); Monocytes # (auto) 1.01 K/uL (0.11-0.59); Monocytes % (auto) 7.8 %; Neutrophils # (auto) 7.07 K/uL (1.4-6.5); Neutrophils % (auto) 54.7 %; Platelet Count 253 K/uL (130-400); RDW Coefficient of Variation 13.1 % (11.5-14.5); RDW Standard Deviation 44.2 fL (36.4-46.3); Red Blood Count 3.92 M/uL (4.2-5.4); White Blood Count 12.93 K/uL (4.8-10.8)
[2021-08-31 06:36] LABS: BUN Creatinine Ratio 21.7 (10-20); Calcium 7.8 mg/dl (8.5-10.1); Creatinine Clr Calc Pharmacy 79.3 ml/min; Est GFR (African American) 101.5 ml/min; Est GFR (Non-African American) 87.6 ml/min; Magnesium 1.6 mg/dl (1.7-2.4); Phosphorus 2.3 mg/dl (2.5-4.9); Potassium 3.9 mmol/L (3.5-5.1)
[2021-08-31] MEDS: amLODIPine BESYLATE 5 MG TAB PO SCH (08:41)
[2021-08-31] MEDS: ENOXAPARIN INJ 40 MG/0.4 ML SYR SQ SCH (08:41)
[2021-08-31] MEDS: INSULIN GLARGINE SOLOSTAR 100 UNITS/ML 3 ML PEN SC SCH (08:43)
--- NOTE | 2021-08-31 10:35 | Pharmacy Report ---
Pharmacy Glycemic Short Note 2 - Date of Service August 31, 2021 - Glycemic Short BSG Results (Last 24 hours): 08/30/21 08/30/21 08/30/21 11:20 12:18 12:19 Glucose POC Glucose 257 H 305 H* 220 H 08/30/21 08/30/21 08/30/21 12:58 13:55 15:00 Glucose POC Glucose 250 H 240 H 106 H 08/30/21 08/30/21 08/30/21 15:17 16:26 20:27 Glucose POC Glucose 114 H 130 H 209 H 08/30/21 08/31/21 08/31/21 23:22 03:49 05:48 Glucose 130 H POC Glucose 120 H 127 H 08/31/21 07:42 Glucose POC Glucose 166 H OUTPATIENT ANTIDIABETIC REGIMEN: * n/a * A1c - 13.7% ASSESSMENT: 08/31 * Patient received total of 46 units yesterday, plus insulin drip for part of day, total of 30 units of basal insulin given to help with insulin drip transition. Drip stopped yesterday afternoon * Fasting BSG 130 mg/dL - will continue with stress of 2 for basal insulin today and trial 25 units daily. Per notes, DM educator met with patient to review need for insulin post discharge and plans to provide education. Reasonable to continue once daily basal insulin on discharge. Could consider addition of metformin XR 500 mg daily to be titrated outpatient. Patient would ultimately need PCP established for outpatient to help with adjustment/titration of regimen 08/30 * 70 year old female admitted with hyperglycemia/HHS, JOEL. Per notes, patient has not been to a doctor in more than 10 years. * Started on insulin drip on arrival per [facility] protocol. Insulin drip held since midnight as BSGs less than lower end of goal range. Spoke with RN this morning and had him resume insulin drip/goal range was adjusted. BSGs trending up due to patient now eating and insulin drip just now resumed * Hard to assess insulin needs since drip held overnight, plan to trial Lantus dose stressed in between 2-3 dosing to help with insulin drip transition. Will continue to monitor today and likely could d/c insulin drip in 4-6 hours as long as blood sugars stable PLAN FOR INPATIENT GLYCEMIC CONTROL: * Hold outpatient oral diabetes medications * Basal insulin * Lantus 25 units daily * Bolus insulin * NovoLog per scale ACHS or Q6hrs while NPO * Goal Range: Low 110 mg/dL - High 140 mg/dL * Correction Factor: 25 mg/dL/unit * Nutritional / Prandial insulin per carb ratio of 1 unit per 8 grams CHO consumed
--- NOTE | 2021-08-31 15:34 | Hospitalist Progress Note ---
Date of Service August 31, 2021 Assessment & Plan (1) Type 2 diabetes mellitus with hyperosmolar hyperglycemic state (HHS): Plan: No known history of diabetes and have not been to a doctor for more than 10 years Polyuria polydipsia for a while and increasing weakness with increasing thirst for the last 1 and half week No fever and no chills and no infection She has been using a lot of water and juice recently to decreased thirst Has hyperosmolar hyperglycemic diabetic state with a blood sugar of more than 1200 and associated hyponatremia and hyperkalemia with JOEL Started on intravenous insulin and adequate fluid management Glycemic pharmacist has been consulted Monitor PRP and electrolytes Electrolytes and kidney function normalized She has been started with subcutaneous insulin Diabetic teaching, PT and OT and likely discharge in a day or 2 Remains a little wobbly with activity Blood sugar remains stable and will be discharged home tomorrow (2) Acute hyperkalemia: Plan: Potassium noted to be high at 6.7 Secondary to JOEL and dehydration Will monitor and is expected to improve Potassium became normal (3) JOEL (acute kidney injury): Plan: Creatinine is elevated at 1.30 Likely secondary to dehydration Will monitor-normalized (4) Pseudohyponatremia: Plan: Sodium level noted to be 117 Secondary to hyperglycemia Will monitor-sodium level has been normalized (5) Acute dehydration: Plan: As above Blood pressure is controlled (6) Hypertension: Plan: Systolic blood pressure is high at 217 Will start Norvasc-hypertension is controlled too Blood pressure remains on the upper side (7) Tobacco abuse: Plan: Mild tobacco abuse Will watch for any withdrawal symptoms DVT prophylaxis Subcu Lovenox CODE STATUS Full Admission and Anticipated Discharge Date Admission Date: August 29, 2021 Subjective 08/30/2021 The patient was seen and examined in telemetry unit She has been feeling a lot better and is off her insulin drip Denies any significant symptoms 08/31/2021 The patient was seen and examined in telemetry unit in presence of the son She has been feeling much better and denies any more confusion She remains a little ataxic with physical therapy Blood sugar seems reasonably controlled and likely to be discharged tomorrow Review of Systems Review of Systems: All systems reviewed and are unremarkable except as noted below Physical Exam Physical Exam: Lying in bed comfortably Constitutional: average body habitus; not ill appearing Eyes: PERRL, conjunctivae normal, anicteric sclerae ENMT: external ear and nose normal, oropharynx normal Neck: trachea midline, no thyromegaly Respiratory: no respiratory distress Auscultation: lungs clear to auscultation bilaterally and + diminished lung sounds; no crackles and no wheezes Cardiovascular: Rate/Rhythm: regular rate and regular rhythm; not tachycardic Heart Sounds: normal S1 and normal S2; no murmur Extremities: no edema Gastrointestinal (Abdomen): Inspection/Auscultation: normal bowel sounds; abdomen not distended Percussion/Palpation: abdomen soft; abdomen nontender Musculoskeletal: No acute arthritis in any joint Neurologic: PERRL, EOMI, accommodation nl, no face palsy, no dysarthria Psychiatric: A+Ox3, euthymic affect Lymphatic: no cervical or axillary lymphadenopathy Results & Data Results & Data ([facility]) Vital Signs (Past 12 Hours) Vital Signs Temp Pulse Pulse Resp BP Pulse Ox 08/31/21 15:22 36.9 C 78 20 162/72 H 94 08/31/21 11:03 36.8 C 70 18 137/69 96 08/31/21 07:39 36.7 C 68 20 161/79 H 97 08/31/21 06:13 65 08/31/21 03:52 37.1 C 65 18 132/66 96 Laboratory Results Short CBC 08/31/21 Range/Units 05:48 WBC 12.93 H (4.8-10.8) K/uL Hgb 11.8 L (12.0-16.0) g/dL Hct 36.2 L (37-47) % Plt Count 253 (130-400) K/uL BMP 08/31/21 05:48 Sodium 136 Potassium 3.9 Chloride 111 H Carbon Dioxide 21 BUN 15 Creatinine 0.69 Glucose 130 H Calcium 7.8 L Urine 08/30/21 Range/Units 21:46 Urine Color Yellow Urine Appearance Cloudy A (Clear) Urine pH 5.0 (4.5-7.5) Ur Specific [place] 1.020 (1.000-1.030) Urine Protein Negative (Negative) Urine Glucose (UA) 2+ H (Negative) Medications Administered Current Inpatient Medications Amlodipine Besylate (Amlodipine Besylate 5 Mg Tab) 5 mg PO QAM FAREED Stop: 09/28/21 13:29 Last Admin: 08/31/21 08:41 Dose: 5 mg Documented by: Dextrose (Dextrose 50% 50 Ml Syringe) 25 - 50 ml IV UD PRN; Protocol PRN Reason: Hypoglycemia Protocol Stop: 09/28/21 12:10 Last Admin: 08/29/21 23:35 Dose: 50 ml Documented by: Enoxaparin Sodium (Enoxaparin Inj 40 Mg/0.4 Ml Syr) 40 mg SQ QAM FAREED Stop: 09/28/21 13:14 Last Admin: 08/31/21 08:41 Dose: 40 mg Documented by: Glucagon (Glucagon For Inj 1 Mg Vial) 1 mg SQ UD PRN; Protocol PRN Reason: Hypoglycemia Protocol Stop: 09/28/21 12:10 Glucose (Glucose 10 Tabs/Tube) 4 - 8 tabs PO UD PRN; Protocol PRN Reason: Hypoglycemia Protocol Stop: 09/28/21 12:10 Glucose (Glucose 40% Gel 15 Gm Tube) 15 - 30 gm PO UD PRN; Protocol PRN Reason: Hypoglycemia Protocol Stop: 09/28/21 12:10 Potassium Chloride/Sodium Chloride (Normal Saline W/20 Meq Kcl) 20 meq in 1,000 mls @ 150 mls/hr IV .Q6H40M FAREED Stop: 09/28/21 19:59 Last Admin: 08/31/21 14:38 Dose: 150 mls/hr Documented by: Insulin Aspart (Insulin Aspart Per Unit) 0 units SC ACHS FAREED Stop: 09/29/21 16:29 Last Admin: 08/31/21 12:22 Dose: 10 units Documented by: Insulin Glargine (Insulin Glargine Solostar 100 Units/Ml 3 Ml Pen) 25 units SC DAILY FAREED Stop: 09/30/21 08:59 Last Admin: 08/31/21 08:43 Dose: 25 units Documented by: Miscellaneous (Carbohydrates For Hypoglycemia ) 15 - 30 gm PO UD PRN PRN Reason: Hypoglycemia Protocol Stop: 09/28/21 12:10 Miscellaneous Information (Pharmacy Glycemic Mgmt Consult) 1 ea N/A UD PRN PRN Reason: Consult Stop: 09/28/21 13:16
[2021-09-01] MEDS: NSS + 20MEQ KCL 20 MEQ/1,000 ML BAG IV SCH ×2 (04:00→11:20)
[2021-09-01 07:20] LABS: Basophils # (auto) 0.05 K/uL (0-0.2); Basophils % (auto) 0.5 %; Eosinophils % (auto) 4.5 %; Hematocrit (blood only) 36.8 % (37-47); Immature Granulocytes # (auto) 0.04 K/uL (0.00-0.02); Immature Granulocytes % (auto) 0.4 %; Lymphocytes % (auto) 30.8 %; Mean Corpuscular Hemoglobin 30.5 pg (25-34); Mean Corpuscular Hgb Conc 32.6 g/dL (32-36); Mean Corpuscular Volume 93.4 fL (80-100); Mean Platelet Volume 11.6 fL (7.4-10.4); Monocytes # (auto) 1.14 K/uL (0.11-0.59); Monocytes % (auto) 10.3 %; Neutrophils # (auto) 5.91 K/uL (1.4-6.5); Neutrophils % (auto) 53.5 %; Platelet Count 240 K/uL (130-400); RDW Coefficient of Variation 13.2 % (11.5-14.5); RDW Standard Deviation 45.3 fL (36.4-46.3); Red Blood Count 3.94 M/uL (4.2-5.4); White Blood Count 11.04 K/uL (4.8-10.8)
--- NOTE | 2021-09-01 07:42 | Pharmacy Report ---
Pharmacy Glycemic Short Note 2 - Date of Service September 01, 2021 - Glycemic Short BSG Results (Last 24 hours): 08/31/21 08/31/21 08/31/21 07:42 11:40 16:13 POC Glucose 166 H 191 H 141 H 08/31/21 09/01/21 20:13 07:11 POC Glucose 208 H 139 H OUTPATIENT ANTIDIABETIC REGIMEN: * n/a * A1c - 13.7% ASSESSMENT: 09/01 * Patient received total of 56 units of insulin yesterday, of which 25 units were basal insulin * Fasting BSG 139 mg/dL - continue with 25 units daily of Lantus, received ~9 units of novolog TIDM * BSG improving more yesterday, will continue same parameters 08/31 * Patient received total of 46 units yesterday, plus insulin drip for part of day, total of 30 units of basal insulin given to help with insulin drip transition. Drip stopped yesterday afternoon * Fasting BSG 130 mg/dL - will continue with stress of 2 for basal insulin today and trial 25 units daily. Per notes, DM educator met with patient to review need for insulin post discharge and plans to provide education. Reasonable to continue once daily basal insulin on discharge. Could consider addition of metformin XR 500 mg daily to be titrated outpatient. Patient would ultimately need PCP established for outpatient to help with adjustment/titration of regimen 08/30 * 70 year old female admitted with hyperglycemia/HHS, JOEL. Per notes, patient has not been to a doctor in more than 10 years. * Started on insulin drip on arrival per HHS protocol. Insulin drip held since midnight as BSGs less than lower end of goal range. Spoke with RN this morning and had him resume insulin drip/goal range was adjusted. BSGs trending up due to patient now eating and insulin drip just now resumed * Hard to assess insulin needs since drip held overnight, plan to trial Lantus dose stressed in between 2-3 dosing to help with insulin drip transition. Will continue to monitor today and likely could d/c insulin drip in 4-6 hours as long as blood sugars stable PLAN FOR INPATIENT GLYCEMIC CONTROL: * Hold outpatient oral diabetes medications * Basal insulin * Lantus 25 units daily * Bolus insulin * NovoLog per scale ACHS or Q6hrs while NPO * Goal Range: Low 110 mg/dL - High 140 mg/dL * Correction Factor: 20 mg/dL/unit * Nutritional / Prandial insulin per carb ratio of 1 unit per 7 grams CHO consumed
[2021-09-01 07:43] LABS: BUN Creatinine Ratio 11.3 (10-20); Calcium 8.3 mg/dl (8.5-10.1); Creatinine Clr Calc Pharmacy 70.7 ml/min; Est GFR (African American) 99.3 ml/min; Est GFR (Non-African American) 85.7 ml/min; Potassium 4.4 mmol/L (3.5-5.1)
[2021-09-01] MEDS: INSULIN ASPART PER UNIT SC SCH ×4 (08:31→20:13)
[2021-09-01] MEDS: ENOXAPARIN INJ 40 MG/0.4 ML SYR SQ SCH (08:48)
[2021-09-01] MEDS: INSULIN GLARGINE SOLOSTAR 100 UNITS/ML 3 ML PEN SC SCH (08:48)
[2021-09-01] MEDS: amLODIPine BESYLATE 5 MG TAB PO SCH (08:48)
--- NOTE | 2021-09-01 15:30 | Hospitalist Progress Note ---
Date of Service September 01, 2021 Assessment & Plan (1) Type 2 diabetes mellitus with hyperosmolar hyperglycemic state (HHS): Plan: No known history of diabetes and have not been to a doctor for more than 10 years Polyuria polydipsia for a while and increasing weakness with increasing thirst for the last 1 and half week No fever and no chills and no infection She has been using a lot of water and juice recently to decreased thirst Has hyperosmolar hyperglycemic diabetic state with a blood sugar of more than 1200 and associated hyponatremia and hyperkalemia with JOEL Started on intravenous insulin and adequate fluid management Glycemic pharmacist has been consulted Monitor PRP and electrolytes Electrolytes and kidney function normalized She has been started with subcutaneous insulin Diabetic teaching, PT and OT and likely discharge in a day or 2 Remains a little wobbly with activity Blood sugar remains stable and will be discharged home tomorrow Has had diabetic teaching and knows how to take insulin and check blood sugar Will be discharged home tomorrow (2) Acute hyperkalemia: Plan: Potassium noted to be high at 6.7 Secondary to JOEL and dehydration Will monitor and is expected to improve Potassium became normal (3) JOEL (acute kidney injury): Plan: Creatinine is elevated at 1.30 Likely secondary to dehydration Will monitor-normalized (4) Pseudohyponatremia: Plan: Sodium level noted to be 117 Secondary to hyperglycemia Will monitor-sodium level has been normalized (5) Acute dehydration: Plan: As above Blood pressure is controlled (6) Hypertension: Plan: Systolic blood pressure is high at 217 Will start Norvasc-hypertension is controlled too Blood pressure remains on the upper side (7) Tobacco abuse: Plan: Mild tobacco abuse Will watch for any withdrawal symptoms DVT prophylaxis Subcu Lovenox CODE STATUS Full Will make appointments with primary care physician Admission and Anticipated Discharge Date Admission Date: August 29, 2021 Subjective 08/30/2021 The patient was seen and examined in telemetry unit She has been feeling a lot better and is off her insulin drip Denies any significant symptoms 08/31/2021 The patient was seen and examined in telemetry unit in presence of the son She has been feeling much better and denies any more confusion She remains a little ataxic with physical therapy Blood sugar seems reasonably controlled and likely to be discharged tomorrow 09/01/2021 The patient was seen and examined in telemetry unit She has been feeling much better but he still has some problem with mobility Denies any other symptoms Not yet ready to be discharged as of today Review of Systems Review of Systems: All systems reviewed and are unremarkable except as noted below Neurologic: Alert, awake and oriented x3. No focal sensory or motor deficit appreciated Physical Exam Physical Exam: Lying in bed comfortably Constitutional: average body habitus; not ill appearing Eyes: PERRL, conjunctivae normal, anicteric sclerae ENMT: external ear and nose normal, oropharynx normal Neck: trachea midline, no thyromegaly Respiratory: no respiratory distress Auscultation: lungs clear to auscultation bilaterally and + diminished lung sounds; no crackles and no wheezes Cardiovascular: Rate/Rhythm: regular rate and regular rhythm; not tachycardic Heart Sounds: normal S1 and normal S2; no murmur Extremities: no edema Gastrointestinal (Abdomen): Inspection/Auscultation: normal bowel sounds; abdomen not distended Percussion/Palpation: abdomen soft; abdomen nontender Neurologic: PERRL, EOMI, accommodation nl, no face palsy, no dysarthria Psychiatric: A+Ox3, euthymic affect Lymphatic: no cervical or axillary lymphadenopathy Results & Data Results & Data ([facility]) Vital Signs (Past 12 Hours) Vital Signs Temp Pulse Pulse Resp BP Pulse Ox 09/01/21 15:15 36.5 C 70 20 127/76 97 09/01/21 11:52 36.8 C 86 18 113/61 97 09/01/21 11:50 36.8 C 66 20 134/69 97 09/01/21 07:57 36.8 C 68 20 128/73 97 09/01/21 06:13 61 09/01/21 04:00 36.6 C 67 16 158/78 H 97 Laboratory Results Short CBC 09/01/21 Range/Units 06:17 WBC 11.04 H (4.8-10.8) K/uL Hgb 12.0 (12.0-16.0) g/dL Hct 36.8 L (37-47) % Plt Count 240 (130-400) K/uL BMP 09/01/21 06:17 Sodium 139 Potassium 4.4 Chloride 110 H Carbon Dioxide 25 BUN 8 Creatinine 0.71 Glucose 127 H Calcium 8.3 L Medications Administered Current Inpatient Medications Amlodipine Besylate (Amlodipine Besylate 5 Mg Tab) 5 mg PO QAM [facility]ARE[facility] Stop: 09/28/21 13:29 Last Admin: 09/01/21 08:48 Dose: 5 mg Documented by: Dextrose (Dextrose 50% 50 Ml Syringe) 25 - 50 ml IV UD PRN; Protocol PRN Reason: Hypoglycemia Protocol Stop: 09/28/21 12:10 Last Admin: 08/29/21 23:35 Dose: 50 ml Documented by: Enoxaparin Sodium (Enoxaparin Inj 40 Mg/0.4 Ml Syr) 40 mg SQ QAM FAREED Stop: 09/28/21 13:14 Last Admin: 09/01/21 08:48 Dose: 40 mg Documented by: Glucagon (Glucagon For Inj 1 Mg Vial) 1 mg SQ UD PRN; Protocol PRN Reason: Hypoglycemia Protocol Stop: 09/28/21 12:10 Glucose (Glucose 10 Tabs/Tube) 4 - 8 tabs PO UD PRN; Protocol PRN Reason: Hypoglycemia Protocol Stop: 09/28/21 12:10 Glucose (Glucose 40% Gel 15 Gm Tube) 15 - 30 gm PO UD PRN; Protocol PRN Reason: Hypoglycemia Protocol Stop: 09/28/21 12:10 Insulin Aspart (Insulin Aspart Per Unit) 0 units SC ACHS FAREED Stop: 09/29/21 16:29 Last Admin: 09/01/21 12:33 Dose: 10 units Documented by: Insulin Glargine (Insulin Glargine Solostar 100 Units/Ml 3 Ml Pen) 25 units SC DAILY [facility] Stop: 09/30/21 08:59 Last Admin: 09/01/21 08:48 Dose: 25 units Documented by: Miscellaneous (Carbohydrates For Hypoglycemia ) 15 - 30 gm PO UD PRN PRN Reason: Hypoglycemia Protocol Stop: 09/28/21 12:10 Miscellaneous Information (Pharmacy Glycemic Mgmt Consult) 1 ea N/A UD PRN PRN Reason: Consult Stop: 09/28/21 13:16
[2021-09-02] MEDS: ENOXAPARIN INJ 40 MG/0.4 ML SYR SQ SCH (08:40)
[2021-09-02] MEDS: amLODIPine BESYLATE 5 MG TAB PO SCH (08:40)
[2021-09-02] MEDS: INSULIN GLARGINE SOLOSTAR 100 UNITS/ML 3 ML PEN SC SCH (09:36)
[2021-09-02] MEDS: INSULIN ASPART PER UNIT SC SCH ×2 (09:37→12:20)
--- NOTE | 2021-09-02 12:38 | Hospitalist Progress Note ---
Date of Service September 02, 2021 Assessment & Plan (1) Type 2 diabetes mellitus with hyperosmolar hyperglycemic state (HHS): Plan: No known history of diabetes and have not been to a doctor for more than 10 years Polyuria polydipsia for a while and increasing weakness with increasing thirst for the last 1 and half week No fever and no chills and no infection She has been using a lot of water and juice recently to decreased thirst Has hyperosmolar hyperglycemic diabetic state with a blood sugar of more than 1200 and associated hyponatremia and hyperkalemia with JOEL Started on intravenous insulin and adequate fluid management Glycemic pharmacist has been consulted Monitor PRP and electrolytes Electrolytes and kidney function normalized She has been started with subcutaneous insulin Diabetic teaching, PT and OT and likely discharge in a day or 2 Remains a little wobbly with activity Blood sugar remains stable and will be discharged home tomorrow Has had diabetic teaching and knows how to take insulin and check blood sugar Will be discharged home today-advised to follow diabetic diet and keep appointments with the healthcare providers (2) Acute hyperkalemia: Plan: Potassium noted to be high at 6.7 Secondary to JOEL and dehydration Will monitor and is expected to improve Potassium became normal (3) JOEL (acute kidney injury): Plan: Creatinine is elevated at 1.30 Likely secondary to dehydration Will monitor-normalized (4) Pseudohyponatremia: Plan: Sodium level noted to be 117 Secondary to hyperglycemia Will monitor-sodium level has been normalized (5) Acute dehydration: Plan: As above Blood pressure is controlled (6) Hypertension: Plan: Systolic blood pressure is high at 217 Will start Norvasc-hypertension is controlled too Blood pressure remains on the upper side (7) Tobacco abuse: Plan: Mild tobacco abuse Will watch for any withdrawal symptoms DVT prophylaxis Subcu Lovenox CODE STATUS Full Will make appointments with primary care physician Admission and Anticipated Discharge Date Admission Date: August 29, 2021 Subjective 08/30/2021 The patient was seen and examined in telemetry unit She has been feeling a lot better and is off her insulin drip Denies any significant symptoms 08/31/2021 The patient was seen and examined in telemetry unit in presence of the son She has been feeling much better and denies any more confusion She remains a little ataxic with physical therapy Blood sugar seems reasonably controlled and likely to be discharged tomorrow 09/01/2021 The patient was seen and examined in telemetry unit She has been feeling much better but he still has some problem with mobility Denies any other symptoms Not yet ready to be discharged as of today 09/02/2021 The patient was seen and examined in medical telemetry unit She has been feeling much better Has been ambulating without much difficulty Will be discharged home this afternoon Review of Systems Review of Systems: All systems reviewed and are unremarkable except as noted below Neurologic: Alert, awake and oriented x3. No focal sensory or motor deficit appreciated Physical Exam Physical Exam: Lying in bed comfortably Constitutional: average body habitus; not ill appearing Eyes: PERRL, conjunctivae normal, anicteric sclerae ENMT: external ear and nose normal, oropharynx normal Neck: trachea midline, no thyromegaly Respiratory: no respiratory distress Auscultation: lungs clear to auscultation bilaterally and + diminished lung sounds; no crackles and no wheezes Cardiovascular: Rate/Rhythm: regular rate and regular rhythm; not tachycardic Heart Sounds: normal S1 and normal S2; no murmur Extremities: no edema Gastrointestinal (Abdomen): Inspection/Auscultation: normal bowel sounds; abdomen not distended Percussion/Palpation: abdomen soft; abdomen nontender Neurologic: PERRL, EOMI, accommodation nl, no face palsy, no dysarthria Psychiatric: A+Ox3, euthymic affect Lymphatic: no cervical or axillary lymphadenopathy Results & Data Results & Data ([facility]) Vital Signs (Past 12 Hours) Vital Signs Temp Pulse Resp BP Pulse Ox 09/02/21 08:25 37.3 C 70 16 165/74 H 96 Medications Administered Current Inpatient Medications Amlodipine Besylate (Amlodipine Besylate 5 Mg Tab) 5 mg PO QAM [facility] Stop: 09/28/21 13:29 Last Admin: 09/02/21 08:40 Dose: 5 mg Documented by: Dextrose (Dextrose 50% 50 Ml Syringe) 25 - 50 ml IV UD PRN; Protocol PRN Reason: Hypoglycemia Protocol Stop: 09/28/21 12:10 Last Admin: 08/29/21 23:35 Dose: 50 ml Documented by: Enoxaparin Sodium (Enoxaparin Inj 40 Mg/0.4 Ml Syr) 40 mg SQ QAM [facility] Stop: 09/28/21 13:14 Last Admin: 09/02/21 08:40 Dose: 40 mg Documented by: Glucagon (Glucagon For Inj 1 Mg Vial) 1 mg SQ UD PRN; Protocol PRN Reason: Hypoglycemia Protocol Stop: 09/28/21 12:10 Glucose (Glucose 10 Tabs/Tube) 4 - 8 tabs PO UD PRN; Protocol PRN Reason: Hypoglycemia Protocol Stop: 09/28/21 12:10 Glucose (Glucose 40% Gel 15 Gm Tube) 15 - 30 gm PO UD PRN; Protocol PRN Reason: Hypoglycemia Protocol Stop: 09/28/21 12:10 Insulin Aspart (Insulin Aspart Per Unit) 0 units SC ACHS FAREED; Protocol Stop: 09/29/21 16:29 Last Admin: 09/02/21 12:20 Dose: 8 units Documented by: Insulin Glargine (Insulin Glargine Solostar 100 Units/Ml 3 Ml Pen) 25 units SC DAILY [facility]; Protocol Stop: 09/30/21 08:59 Last Admin: 09/02/21 09:36 Dose: 25 units Documented by: Miscellaneous (Carbohydrates For Hypoglycemia ) 15 - 30 gm PO UD PRN PRN Reason: Hypoglycemia Protocol Stop: 09/28/21 12:10 Miscellaneous Information (Pharmacy Glycemic Mgmt Consult) 1 ea N/A UD PRN PRN Reason: Consult Stop: 09/28/21 13:16
--- NOTE | 2021-09-03 07:57 | Discharge Summary ---
Date of Service September 03, 2021 Admission HPI Per Admitting Provider She is a 70-year-old female without significant known past medical history , have not been to a doctor for more than 10 years and been a chronic smoker apparently complaining of increasing weakness with thirst for the last 1-1/2-week. She was also noted to be very dry in her mouth with difficulty speaking and may have mild confusion associated with it. She has had polyuria and polydipsia for a while. Denies any fever and/or chills, any abdominal pain nausea and or vomiting, denies any cough and/or shortness of breath and denies any pain in the chest. No numbness and or tingling involving any of the extremities. She was noted to have a very high blood sugar in the emergency room of more than 1200 with JOEL and systolic high blood pressure at 217. She was a started with intravenous insulin and IV fluid and was admitted to telemetry unit for continuation of care. Admission Exam Per Admitting Provider Physical Exam: Lying in bed comfortably Constitutional: + ill appearing and average body habitus Eyes: PERRL, conjunctivae normal, anicteric sclerae ENMT: external ear and nose normal, oropharynx normal Neck: trachea midline, no thyromegaly Respiratory: no respiratory distress Auscultation: + diminished lung sounds; no crackles and no wheezes Cardiovascular: Rate/Rhythm: regular rate and regular rhythm; not tachycardic Heart Sounds: normal S1 and normal S2; no murmur Extremities: no edema Gastrointestinal (Abdomen): Inspection/Auscultation: normal bowel sounds; abd omen not distended Percussion/Palpation: abdomen soft; abdomen nontender Musculoskeletal: No acute arthritis involving any joint Skin: Very dry Neurologic: PERRL, EOMI, accommodation nl, no face palsy, no dysarthria Psychiatric: A+Ox3, euthymic affect Lymphatic: no cervical or axillary lymphadenopathy Principal Diagnosis HHS, JOEL,HTN Discharge Exam Lying in bed comfortably Constitutional average body habitus; not ill appearing Eyes PERRL, conjunctivae normal, anicteric sclerae ENMT external ear and nose normal, oropharynx normal Neck trachea midline, no thyromegaly Respiratory no respiratory distress Auscultation: lungs clear to auscultation bilaterally and + diminished lung sounds; no crackles and no wheezes Cardiovascular Rate/Rhythm: regular rate and regular rhythm; not tachycardic Heart Sounds: normal S1 and normal S2; no murmur Extremities: no edema Gastrointestinal (Abdomen) Inspection/Auscultation: normal bowel sounds; abdomen not distended Percussion/Palpation: abdomen soft; abdomen nontender Neurologic PERRL, EOMI, accommodation nl, no face palsy, no dysarthria Psychiatric A+Ox3, euthymic affect Lymphatic no cervical or axillary lymphadenopathy Discharge Data Allergies Allergy/AdvReac Type Severity Reaction Status Date / Time No Known Allergies Allergy Unverified 08/29/21 13:18 Consultations 08/29/21 12:47 ED Decision to Admit Stat Ordered Studies 08/29/21 11:05 CT head/brain wo con Stat Hospital Course (1) Type 2 diabetes mellitus with hyperosmolar hyperglycemic state (HHS): No known history of diabetes and have not been to a doctor for more than 10 years Polyuria polydipsia for a while and increasing weakness with increasing thirst for the last 1 and half week No fever and no chills and no infection She has been using a lot of water and juice recently to decreased thirst Has hyperosmolar hyperglycemic diabetic state with a blood sugar of more than 1200 and associated hyponatremia and hyperkalemia with JOEL Started on intravenous insulin and adequate fluid management Glycemic pharmacist has been consulted Monitor PRP and electrolytes Electrolytes and kidney function normalized She has been started with subcutaneous insulin Diabetic teaching, PT and OT and likely discharge in a day or 2 Remains a little wobbly with activity Blood sugar remains stable and will be discharged home tomorrow Has had diabetic teaching and knows how to take insulin and check blood sugar Will be discharged home today-advised to follow diabetic diet and keep appointments with the healthcare providers (2) Acute hyperkalemia: Potassium noted to be high at 6.7 Secondary to JOEL and dehydration Will monitor and is expected to improve Potassium became normal (3) JOEL (acute kidney injury): Creatinine is elevated at 1.30 Likely secondary to dehydration Will monitor-normalized (4) Pseudohyponatremia: Sodium level noted to be 117 Secondary to hyperglycemia Will monitor-sodium level has been normalized (5) Acute dehydration: As above Blood pressure is controlled (6) Hypertension: Systolic blood pressure is high at 217 Will start Norvasc-hypertension is controlled too Blood pressure remains on the upper side (7) Tobacco abuse: Mild tobacco abuse Will watch for any withdrawal symptoms DVT prophylaxis Subcu Lovenox CODE STATUS Full Will make appointments with primary care physician Total Time Total Time Spent Total Time Spent (In Minutes): 40 minutes Discharge Plan Discharge Items Patient Disposition: Home - Home Health Services Reason For Visit: HHS, JOEL, PSEUDOHYPONATREMIA Discharge Diagnosis: HHS, JOEL Condition on Discharge: Good Activity: Resume your previous activity Non-emergency contact: Primary Care Provider Call non-emergency contact if: you have any medication questions and your symptoms worsen Follow-up/Referrals: Torie Mcintyre MD [Outside Practitioners] - (Date & Time 09/03/2021 11:00 AM Provider Torie Mcintyre MD Department General Internal Medicine [address] , [place], [place] [address] ) Diet: Carb Consistent or DM2 Addtl Attending Provider Instructions: Please take precautions to avoid fall Take your medications as advised Take your blood sugar as directed and keep a record of that Please keep appointments with your healthcare provider Recommendations from agricultural extension educator 1.) Basaglar 25 units AM daily + Metformin XR 500mg daily with dinner meal. 2.) SMBG 2-3x/day. 3.) Notify provider of BG values > 200 x 3 days or any value < 70. Pending Studies at Discharge: No Stand-Alone Forms: [facility] [place], Smoking Cessation Medications and DC Order Prescriptions: New Basaglar JosyPen U-100 Insulin 100 unit/mL (3 mL) insulin pen 25 unit subcut QAM Qty: 15 RF: 0 amlodipine [Norvasc] 5 mg Tablet 5 mg PO QAM 30 Days Qty: 30 RF: 0 metformin 500 mg tablet,ER tabitha.retention 24 hr 500 mg PO PM Qty: 30 RF: 0 (DME) OneTouch Verio test strips Strip See Rx Instructions .Route Qty: 50 RF: 0 (DME) lancets [OneTouch Delica Lancets] 33 gauge misc See Rx Instructions .Route Qty: 100 RF: 0 (DME) pen needle, diabetic 32 gauge x 5/32" needle See Rx Instructions .Route Qty: 100 RF: 0 Discharge Orders: Discharge Order (Routine); Ordered 09/02/21 Ordered By: Mita Bailey/Other Patient Handouts: Managing Type 2 Diabetes Admission Data Admit Date/Time: 08/29/21 13:10 Attending Provider: Mita Salazar Admit Provider: Mita Salazar Primary Care Provider: PCP,NO Other Providers: Mita Salazar ; [facility] Other Interventions: Discharge Summary Assessment (RN) Last Done: 09/02/21 13:00
== END 2021-09-02 15:49 | disposition home health service (06) | DRG 638 ==
LOC: ED 10:31 → 2S 13:10 → 2W 09-01 21:47

== ENCOUNTER 2023-08-29 05:41 | Inpatient (IN) ==
--- NOTE | 2023-08-08 14:29 | PAT Medication Instructions ---
Medication Instructions Date of Service August 08, 2023 Home Medications Medication Instructions Recorded lancets 33 gauge (OneTouch Delica #100 ea 09/02/21 Lancets) blood sugar diagnostic (OneTouch #100 ea 09/03/21 Verio test strips) lancets 33 gauge (OneTouch Delica #100 ea 09/03/21 Plus Lancet) pen needle, diabetic 32 gauge x #50 ea 09/03/2132" (Pen Needle) amlodipine 2.5 mg tablet 2.5 mg PO QAM aspirin 81 mg tablet,delayed release 81 mg PO QAM losartan 25 mg tablet 25 mg PO QAM atorvastatin 40 mg tablet 40 mg PO QAM insulin glargine 100 unit/mL (3 mL) subcutaneous pen (Basaglar KwikPen U-100 Insulin) 7 unit subcut QAM metformin 500 mg 24 hr tablet,extended release (gastric retention) 500 mg PO BID ASK your prescriber and surgeon aspirin 81 mg tablet,delayed release 81 mg PO QAM DO NOT take the morning of surgery losartan 25 mg tablet 25 mg PO QAM metformin 500 mg 24 hr tablet,extended release (gastric retention) 500 mg PO BID Take morning of surgery With a small sip of water, OTHERWISE NOTHING TO EAT OR DRINK AFTER MIDNIGHT: amlodipine 2.5 mg tablet 2.5 mg PO QAM atorvastatin 40 mg tablet 40 mg PO QAM Take evening before surgery metformin 500 mg 24 hr tablet,extended release (gastric retention) 500 mg PO BID Insulin Dependent Diabetic Patients * Test your blood sugar the morning of surgery * If Blood Sugar is GREATER THAN 150, take HALF of your regular dose of: insulin glargine 100 unit/mL (3 mL) subcutaneous pen (Basaglar KwikPen U-100 Insulin). * If Blood Sugar is LESS THAN 150, DO NOT TAKE ANY: insulin glargine 100 unit/mL (3 mL) subcutaneous pen (Basaglar KwikPen U-100 Insulin). Other Notes If you have any questions please call us at [phone] or [phone] or [phone] or [phone]
--- NOTE | 2023-08-15 08:47 | Anesthesiology Consultation ---
Date of Service August 15, 2023 Assessment & Plan (1) Encounter for pre-operative examination: - ASA/Clopidogrel: instructions per surgeon/prescriber - Check BSG AM DOS - Infectious disease screening: Per assessment on 08/15/23: No known infectious disease contacts or current infectious disease symptoms. No noted recent Covid positive test result. Chart Review Chart Review: Acceptable Risk for Surgery and Patient seen in Pre Admission Testing Teaching & Discussion Pre-Anesthesia Teaching/Discussion Notes: Instructed NPO after midnight before surgery,except medications with 15 cc of water. Medication instructions provided according to the PAT guidelines. History Surgery Operation Date: 08/29/23 09:30 Proposed Procedures p Left Transcarotid Artery Revascularization - Ramakrishna Haddad MD Height/Weight Height: 5 ft 7 in Weight: 77.5 kg Allergies Allergy/AdvReac Type Severity Reaction Status Date / Time No Known Allergies Allergy Verified 08/08/23 13:09 Medications Home Medications Medication Instructions Recorded Confirmed Last Taken lancets 33 gauge (OneTouch Delica #100 ea 09/02/21 08/03/23 Unknown Lancets) blood sugar diagnostic (OneTouch #100 ea 09/03/21 Unknown Verio test strips) lancets 33 gauge (OneTouch Delica #100 ea 09/03/21 Unknown Plus Lancet) pen needle, diabetic 32 gauge x #50 ea 09/03/21 08/03/23 Unknown 5/32" (Pen Needle) amlodipine 2.5 mg tablet 2.5 mg PO QAM 08/03/23 08/08/23 Unknown aspirin 81 mg tablet,delayed 81 mg PO QAM 08/03/23 08/08/23 Unknown release losartan 25 mg tablet 25 mg PO QAM 08/03/23 08/08/23 Unknown atorvastatin 40 mg tablet 40 mg PO QAM 08/08/23 08/08/23 Unknown insulin glargine 100 unit/mL (3 7 unit subcut QA 08/08/23 08/08/23 Unknown mL) subcutaneous pen (Basaglar KwikPen U-100 Insulin) metformin 500 mg 24 hr 500 mg PO BID 08/08/23 08/08/23 Unknown tablet,extended release (gastric retention) clopidogrel 75 mg tablet 75 mg PO DAILY 08/15/23 08/15/23 Unknown Past Medical History Medical History Carotid artery disease Neck CTA 08/03/23: Prominent atherosclerotic plaque of the bilateral carotid bulbs results in high-grade stenosis with 90% stenosis on the left and 80% stenosis on the right. Areas of high-grade narrowing within the V2 segment right vertebral artery as above secondary to spondylotic spurring of the spine. CKD (chronic kidney disease) Stage 3 Follows with [facility] nephrology Diabetes IDDM High cholesterol HTN (hypertension) Hx of ectopic Exercise / Class Metabolic Activity II 4-5 Yardwork/Stairs/Walk up hill (one FS: No CP, no SOB) Past Family History Family History Mother TIA (transient ischemic attack) FHx: carotid endarterectomy Other No family history of adverse response to anesthesia Past Surgical History Surgical History History of cholecystectomy S/P laparotomy for ectopic (unsure if she had a salpingectomy) Past Anesthesia History No Hx of Anesthesia Complications and No Family Hx of Anesthesia Complications History of PONV No Hx of PONV and No Hx of Motion Sickness Social History Smoking Status: Former smoker tobacco type: cigarettes Do You Dip or Chew Tobacco: No Smoking End Date: Quit 2021 (hx 10 cigs/day x many years) Hx Alcohol Use: Yes alcohol intake frequency: holidays/special occasions only Hx Substance Use: No substance use type: does not use Review of Systems Patient denies chest pain, shortness of breath, dyspnea on exertion, fever, chills, cough, wheezing, palpitations. Physical Exam Vital Signs BP 151/69 - per patient, white coat HTN, monitors closely at home- typical BP readings 120s/50-60s P 73 TEMP 98.0 SP02 97%RA RESP 18 Physical Full cervical extension range of motion. Full TMJ range of motion. TMD 2 finger breaths (small chin) Mallampati Score 1 Dentition: intact Lungs: clear throughout to auscultation Cardiac: regular rate and rhythm, no murmurs noted Spine: normal Carotid arteries: + b/l bruits Extremities: no LE edema Lab Results Anesthesia Preop Results Results Anesthesia Widget: WBC 8.55 K/ul (4.8-10.8) 08/15/23 Hgb 11.9 g/dl (12.0-16.0) L 08/15/23 Hct 36.5 % (37.0-47.0) L 08/15/23 Plt 363 K/uL (130-400) 08/15/23 Na 134 mmol/L (136-145) L 08/15/23 K 4.3 mmol/L (3.5-5.1) 08/15/23 Cl 101 mmol/L (98-107) 08/15/23 CO2 25 mmol/L (21-32) 08/15/23 BUN 19 mg/dl (6-23) 08/15/23 Creat 1.30 mg/dl (0.6-1.2) H 08/15/23 Glucose Level 124 mg/dl (70-99(Fasting)) H 08/15/23 PT 10.6 Seconds (9.0-12.0) 08/15/23 PTT 30 Seconds (21-31) 08/15/23 INR 1.0 (0.9-1.1) 08/15/23 Blood Type O Positive 08/15/23 Antibody Screen NEGATIVE 08/15/23 Testing Laboratory Results HgbA1C (06/30/23): 6.3% Electrocardiogram Date: 08/15/23 NSR at 70bpm. NS STA. Per tracings report, TWI now evident in lateral leads compared to 08/29/2021 comparison ECG. Preop ECG tracings personally reviewed by Dr. More- does not feel that further cardiac evaluation and/or testing needed prior to given surgery from his perspective. Chest X-Ray Date: 08/15/23 FINDINGS: Lung volumes are normal. Lungs are clear. There is no pneumothorax or pleural effusion. Cardiac size is normal. Mediastinal contours are normal. There is no evidence for pulmonary edema. IMPRESSION: No acute cardiopulmonary findings. Echocardiogram Date: 02/28/22 LVEF 61%. LV wall motion normal. Grade II DD. Mild aortic sclerosis. Mild MR. Other Testing Neck CTA Date: 08/03/23 FINDINGS: Atherosclerosis of the thoracic arch. Patency of the innominate and image subclavian arteries. Prominent atherosclerotic plaque of the carotid bulbs. 90% stenosis in the proximal left ICA with 80% stenosis on the right. The internal carotid arteries are otherwise patent. Patent left vertebral artery. There is at least 70% stenosis involving the P2 segment right vertebral artery at the level of C6-C7 secondary to spondylitic spurring with additional focus of high-grade stenosis at the level of C5-C6. Patent basilar artery. Lung apices are clear. Unremarkable soft tissues. No lymphadenopathy. Degenerative changes of the cervical spine. IMPRESSION: Prominent atherosclerotic plaque of the bilateral carotid bulbs results in high-grade stenosis with 90% stenosis on the left and 80% stenosis on the right. Areas of high-grade narrowing within the V2 segment right vertebral artery as above secondary to spondylotic spurring of the spine.
--- NOTE | 2023-08-28 15:17 | History & Physical Report ---
Date of Service August 28, 2023 History of Present Illness Primary Care Provider: Torie Mcintyre MD Chief Complaint rm#7 here for BEATRICE Reason for Consultation Bilateral carotid stenosis History of Present Illness I had the pleasure of seeing Liv today for evaluation of her carotid disease. As you know she is a 72-year-old female who was found to have bilateral carotid bruits. Ultrasound shows 70 to 99% narrowing of both internal carotid arteries with ratio 4.7 on the right 4.0 on the left. Velocity on the right was 359 and the left 403. She has no history of TIA, amaurosis fugax, or cerebrovascular accidents. She has a history of smoking but quit 2 years ago. She has no claudication of her upper or lower extremities. She does have a history of diabetes hypertension, and chronic kidney disease. Her last GFR was 42. Review of Systems 10 systems were reviewed. Only positive findings are frequent bladder infections. The rest of the positive findings are pretty HPI. Physical Exam Vitals & Measurements HR: 71 (Monitored) BP: 152/72 SpO2: 98% WT: 76.9 kg WT: 76.900 kg (Dosing) Input and Output - Last 24 hours (Last 8 hours) No I/O Data Found: On exam she is awake alert and oriented x 3. She is in no apparent distress. Her blood pressure is 152/74 on the left and 152/72 on the right. She does have bilateral carotid bruits. Her lungs are clear. Abdominal exam is benign. I cannot appreciate a dilated aortic pulse. Heart regular rate and rhythm. Her radial carotid pulses are +2 bilaterally. Femorals and pedal pulses are all +2 bilaterally. Neurologic exam is intact to motor and sensory function. Assessment/Plan 1. Carotid stenosis, bilateral This point recommend CT angiogram to better define the carotid anatomy. If the CT angio matches the carotid ultrasound then carotid intervention will be recommended. If he is a candidate and will most likely recommend a TCAR of the carotid artery. Being that she is concerned about her GFR being 42 we will do pre and post procedure hydration for the CT angio. We will keep you informed of our future plans. Thank you very much for letting us participate in the care of this patient. Sincerely, Sanjana Haddad MD I have personally spent __55___ minutes performing [id number] and uqq-[id number] activities on this date of service. Activities Include: _x_ review of the medical record _x_ obtaining a history _x_ physical exam/evaluation __ review labs _x_ review radiology reports _x_ counseling/educating patient/family/caregiver __ discussion/referral to other healthcare professional _x_ documenting care in the medical record __ independent interpretation of results __ communication of results to patient/family/caregiver __ coordination of care Problem List/Past Medical History Ongoing Carotid stenosis, bilateral Procedure/Surgical History Removal of ectopic fetus Cholecystectomy Medications Home amLODIPine(amLODIPine 2.5 mg oral tablet), 2.5 mg= 1 tab, PO, Daily aspirin(aspirin 81 mg oral tablet, chewable), 81 mg= 1 tab, PO, Daily atorvastatin(atorvastatin 40 mg oral tablet), 40 mg= 1 tab, PO, Daily insulin glargine(insulin glargine 100 units/mL subcutaneous solution), 9 unit, subQ, qAM losartan(losartan 25 mg oral tablet), 25 mg= 1 tab, PO, Daily metFORMIN(MetFORMIN (Eqv-Glucophage XR) 500 mg oral tablet, extended release), 1000 mg= 2 tab, PO, qPM Allergies NKA Social History Smoking Status Former Smoker, quit > 1 yr Signature Line Electronic Signature on File Ramakrishna Haddad MD Author Signature Dt/Tm: 07/19/2023 09:11 AM Talent Development Analyst Milton Chastity [facility] [address] [place] [address] Electronically Reviewed/Signed by: MD Bernice Abdallaigner Signature Dt/Tm: 07/19/2023 09:12 AM Talent Development Analyst Gerardo S. [address] [place] [address] EJS Result Type: .Outpt Ltr Date of Service: July 19, 2023 09:06 EDT Authorization Status: Modified Subject: Consult Note Author or Import Date: MD Haddad Eugene J on July 19, 2023 09:11 EDT Verified By: MD Boo, Ramakrishna Diggs on July 19, 2023 09:11 EDT Encounter info: [id number], [facility], [facility], 07/19/2023 - 07/19/2023 Allergies Allergy/AdvReac Type Severity Reaction Status Date / Time No Known Allergies Allergy Verified 08/08/23 13:09 Home Medications Medication Instructions Recorded Confirmed Type lancets 33 gauge (OneTouch Delica #100 ea 09/02/21 08/03/23 Rx Lancets) blood sugar diagnostic (OneTouch #100 ea 09/03/21 Rx Verio test strips) lancets 33 gauge (OneTouch Delica #100 ea 09/03/21 Rx Plus Lancet) pen needle, diabetic 32 gauge x #50 ea 09/03/21 08/03/23 Rx 5/32" (Pen Needle) amlodipine 2.5 mg tablet 2.5 mg PO QAM 08/03/23 08/08/23 History aspirin 81 mg tablet,delayed 81 mg PO QAM 08/03/23 08/08/23 History release losartan 25 mg tablet 25 mg PO QAM 08/03/23 08/08/23 History atorvastatin 40 mg tablet 40 mg PO QAM 08/08/23 08/08/23 History insulin glargine 100 unit/mL (3 7 unit subcut QAM 08/08/23 08/08/23 History mL) subcutaneous pen (Basaglar KwikPen U-100 Insulin) metformin 500 mg 24 hr 500 mg PO BID 08/08/23 08/08/23 History tablet,extended release (gastric retention) clopidogrel 75 mg tablet 75 mg PO DAILY 08/15/23 08/15/23 History Past Med/Surg History Medical History Carotid artery disease Neck CTA 08/03/23: Prominent atherosclerotic plaque of the bilateral carotid bulbs results in high-grade stenosis with 90% stenosis on the left and 80% stenosis on the right. Areas of high-grade narrowing within the V2 segment right vertebral artery as above secondary to spondylotic spurring of the spine. CKD (chronic kidney disease) Stage 3 Follows with [facility] nephrology Diabetes IDDM High cholesterol HTN (hypertension) Hx of ectopic Surgical History History of cholecystectomy S/P laparotomy for ectopic (unsure if she had a salpingectomy) Family History Mother TIA (transient ischemic attack) FHx: carotid endarterectomy Other No family history of adverse response to anesthesia Social History Smoking Status: Former smoker Smoking End Date: Quit 2021 (hx 10 cigs/day x many years); Second Hand Exposure: No; Do You Dip or Chew Tobacco: No; Tobacco Cessation Education Requested by Patient: No Hx Alcohol Use: Yes Hx Substance Use: No Preferred Language: French Communication Ability: Effective Customer Technical Services Manager Required: No Beliefs That Will Affect Care: None Current Living Situation: Alone Current Living Situation Comment: son lives with patient Other Information That Helps Us Care for You: No Feels Safe at Home: Yes Safety Concerns: Feels Safe At This Time Assistive Devices: None
[2023-08-29] MEDS: LACTATED RINGER'S 1,000 ML BAG IV SCH (06:24)
[2023-08-29] MEDS ORDERED: ONDANSETRON INJ 2 MG/ML 2 ML VIAL ONE (06:49)
[2023-08-29] MEDS ORDERED: DEXAMETHASONE SOD INJ 4 MG/ML VIAL ONE (06:49)
[2023-08-29] MEDS ORDERED: LIDOCAINE 2% 2 ML VIAL/AMP(20MG/ML) INFIL ONE (06:49)
[2023-08-29] MEDS ORDERED: GLYCOPYRROLATE 0.2 MG/ML VIAL ONE (06:49)
[2023-08-29] MEDS ORDERED: MIDAZOLAM HCL 1 MG/ML 2ML VIAL ONE (06:49)
[2023-08-29] MEDS ORDERED: ROCURONIUM BROMIDE 10 MG/ML 5 ML VIAL IV ONE ×2 (06:49→07:12)
[2023-08-29] MEDS ORDERED: fentaNYL citrate PF 100 MCG/2 ML VIAL ONE ×2 (06:49→08:23)
[2023-08-29] MEDS ORDERED: PROPOFOL IV EMULSION 10 MG/ML 20 ML VIAL IV ONE (06:49)
[2023-08-29] MEDS ORDERED: DROPERIDOL 5 MG/2 ML VIAL IV PRN (06:51)
[2023-08-29] MEDS ORDERED: ONDANSETRON INJ 2 MG/ML 2 ML VIAL IV PRN ×2 (06:51→11:26)
[2023-08-29] MEDS ORDERED: LABETALOL HCL IV 5 MG/ML 20ML IV PRN (06:51)
[2023-08-29] MEDS ORDERED: ATROPINE SULFATE 0.1 MG/ML 10ML SYR IV PRN (06:51)
[2023-08-29] MEDS ORDERED: SUGAMMADEX SODIUM 200 MG/2 ML VIAL IV ONE (06:54)
[2023-08-29] MEDS ORDERED: PHENYLEPHRINE HCL 25 MG/250 ML NSS IV ONE (06:54)
[2023-08-29] MEDS ORDERED: ePHEDrine sulfate 50 MG/5 ML SYR ONE (06:54)
--- NOTE | 2023-08-29 07:35 | History & Physical Bridge Note ---
Date of Service August 29, 2023 History & Physical Bridge Note Patient for left TCAR. I have discussed the risks options and benefits of the procedure with the patient. The patient understands the risks options and benefits and agrees to the procedure. I have examined the patient, reviewed the History & Physical and in the interval since the performance of the History & Physical I have noted the following changes of clinical significance: no changes noted
[2023-08-29] MEDS: CEFAZOLIN 2,000 MG/15 ML SYR IV SCH (07:57)
[2023-08-29] MEDS ORDERED: HEPARIN SOD (PORCINE) 1000 UNIT/ML ONE (08:12)
[2023-08-29] MEDS ORDERED: PROTAMINE SULFATE 10 MG/ML 5 ML VIAL IV ONE (08:12)
--- OUTSIDE RECORDS SUMMARY | 2023-08-29 08:23 | External Medical Summary | Continuity of Care Document ---
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 Date(s): 08/15/23 - 08/15/23 [facility] [address] [facility] [address] [facility] [address] [place], [place] [phone] Encounter Diagnosis Occlusion and stenosis of bilateral carotid arteries(Final) - Discharge Disposition: Home or Self Care Attending Physician: MD Haddad Eugene J Referring Physician: MD Haddad Eugene J Allergies, Adverse Reactions, Alerts No Known Allergies Medications amLODIPine 2.5 mg oral tablet Start: 07/19/23 7:56:00 EDT, 1 tab, PO, Daily Start Date: 07/19/23 Status: Ordered aspirin 81 mg oral tablet, chewable Start: 07/19/23 7:56:00 EDT, 1 tab, PO, Daily Start Date: 07/19/23 Status: Ordered atorvastatin 40 mg oral tablet Start: 07/19/23 7:56:00 EDT, 1 tab, PO, Daily Start Date: 07/19/23 Status: Ordered insulin glargine 100 units/mL subcutaneous solution Start: 07/19/23 7:57:00 EDT, 9 unit =, subQ, qAM Start Date: 07/19/23 Status: Ordered losartan 25 mg oral tablet Start: 07/19/23 7:57:00 EDT, 1 tab, PO, Daily Start Date: 07/19/23 Status: Ordered MetFORMIN (Eqv-Glucophage XR) 500 mg oral tablet, extended release Start: 07/19/23 7:57:00 EDT, 2 tab, PO, qPM Start Date: 07/19/23 Status: Ordered Plavix 75 mg oral tablet Start: 08/07/23 15:18:00 EDT, 1 tab, PO, Daily, Disp# 30 tab, Refills: 11, Pharmacy: [id number] Start Date: 08/07/23 Status: Ordered Problem List Condition Confirmation Course Effective Dates Status Health St atus Informant Carotid stenosis, bilateral Confirmed Active Procedures Procedure Date Related Diagnosis Body Site Status Cholecystectomy Completed Removal of ectopic fetus Completed Results Laboratory List Name Date Platelet Function (P2Y12 Receptor) (PLT FUNCTION P2Y12) 08/15/23 Most recent to oldest [Reference Range]: 1 P2Y12 Platelet Function [194-418 PRU] 13 7 PRU 1 *LOW* (08/15/23 10:29 AM) 1Result Comment: PRU reference range is 194-418 (healthy adults, no drug treatment). Post Drug Results: Lower PRU levels are expected following treatment with antiplatelet drugs. Post-treatment values are usually below the stated reference range above. The post-drug PRU values reported in the VerifyNOW P2Y12 package insert are 18-435. This broader range reflects the variability in drug response and is consistent with significant numbers of patients with decreased sensitivity to P2Y12 receptor antagonists (prasugrel or clopidogrel). Clinical studies suggest an on-treatment PRU>230 indicates less than optimal response to therapy, and PRU<208 at 12-24 hours after percutaneous intervention or during follow-up is associated with a lower risk of cardiovascular events (1). (1).Standard-vs high-dose clopidogrel based on platelet function testing after percutaneouscoronary intervention: the GRAVITAS randomized trial. Shahid et al. ASHANTI. 2010July 14; 305(11): 1731-3496. doi: 10.1001/ashanti.2010.290 Social History Social History Type Response Smoking Status Former Smoker, quit > 1 yr Sex Female Patient Care team information Care Team Personnel Name: MD Mcintyre Sapana Position: Referring DIRECT Member Role: Primary Care Provider Address: Address: [address] [place] [address] [place] Name: EPHRAIM Smith Lynn Position: Physician Narrow Gauge Operator Exempt - Vasc Surg Member Role: Lifetime Relationship Address: Address: [address] [place] [id number] [place]
[2023-08-29] MEDS: GELATIN SPONGE SZ 100 ONE (09:35)
[2023-08-29] MEDS: THROMBIN FOR SOLN 20000 UNIT KIT ONE ×2 (09:35→09:36)
--- NOTE | 2023-08-29 09:35 | Post Operative Brief Note ---
Immediate Post Op Note v1 Date of Surgery August 29, 2023 Pre & Post Diagnosis Operation Date: 08/29/23 08:00 Pre-Op Diagnosis: Left Carotid Artery Stenosis Post-Op Diagnosis: Left Carotid Artery Stenosis I identified the patient and participated in the time-out.: Yes Procedure Operation Date: 08/29/23 08:00 Actual Procedures p Left Transcarotid Artery Revascularization(Left), Ultrasound localization of right common femoral vein- Ramakrishna Haddad MD Surgeon Ramakrishna Haddad MD Weave Defect Charting Clerk MD Lyndsay Estimated Blood Loss 10 Findings Consistent with Post-Op Diagnosis Anesthesia Type General Complications none Disposition Accompanied Patient To Recovery: No Disposition: Recovery Room
[2023-08-29] MEDS: ceFAZolin 330 MG/ML 1 GM VIAL ONE (09:37)
[2023-08-29] MEDS: SURGICEL ABSORB HEMOSTAT 2IN X 14IN TOP ONE (09:38)
[2023-08-29] MEDS: BUPIVACAINE/EPINEPHRINE 0.5% MPF 1:200,000 10 ML VIAL ONE (09:40)
--- NOTE | 2023-08-29 09:50 | Operative Report ---
Post Operative Report Pre & Post Diagnosis Operation Date: 08/29/23 08:00 Pre-Op Diagnosis: Left Carotid Artery Stenosis Post-Op Diagnosis: Left Carotid Artery Stenosis I identified the patient and participated in the time-out.: Yes Procedure Operation Date: 08/29/23 08:00 Actual Procedures p Left Transcarotid Artery Revascularization(Left) - Ramakrishna Haddad MD Surgeon Ramakrishna Haddad MD Curriculum Development Coordinator Rojas Clark MD Estimated Blood Loss 10 Findings Consistent with Post-Op Diagnosis Severe > 90% stenosis of the left ICA. Following stent deployment, less than 30% residual stenosis of the left ICA with good oposition. Specimens None Anesthesia Type General Complications None Indications This is a pleasant 72 year old female with history of severe asymptomatic stenosis of the left internal carotid artery measuring > 90 % pre-operatively. Description of Procedure The patient was taken to the operating room and placed in supine position. After general anesthesia was accomplished the left-side of the neck and bilateral groin were prepped and draped in a sterile manner. A transverse 4cm incision was made on the left neck over the sternal and clavicular heads of the sternocleidomastoid muscle and below the omohyoid. Subcutaneous tissue and platysma were divided using electrocautery. Dissection using Metzenbaum scissors proceeded and the carotid sheath was identified medially. It was divided longitudinally. The internal jugular was retracted laterally. The common carotid artery was identified with the Vagus nerve posterolateral. The common carotid artery was mobilized with Metzenbaum scissors and umbilical tape was placed around the artery. Once sufficient length, about 2cm of the common carotid were mobilized, a 5-0 Proline suture was used to place a U-Stitch in the anterior surface of the right common carotid artery. Attention was turned to the right common femoral vein which was then accessed under ultrasound guidance using a micropuncture needle. This was exchanged for the Venous Return Sheath over the provided 0.035'' wire. Blood was aspirated from the flow line followed by flushing of the venous sheath with heparinized saline. The sheath was sutured in place to the patient's skin. 7000U of heparin was then given to obtain an ACT > 250. A micropuncture needle was used to access the common carotid artery in the center of the U-stitch. The micropuncture wire was then advance 4cm into the common carotid artery and the micropuncture needle was removed. The micropuncture sheath was advanced 2-3cm into the common carotid artery and the wire and dilator were removed. Next a 0.035'' J guidewire was was inserted and placed just proximal to the right internal carotid artery lesion without engaging the lesion. The micropuncture sheath was exchanged over the guidewire and the Transcarotid Arterial Sheath was advanced to the 2.5cm marker in correct coaxial orientation and the J wire and dilator were removed. The Sheath was sutured to the patient and then flushed with heparinized saline. No air bubbles visualized during flushing The flow controller was connected to the Transcarotid arterial sheath. Arterial blood was allowed to passively fill the device completely to which it was then connected to the Venous return sheath. The flow controller was set to high. The common carotid artery proximal to the access point was then clamped with an angled DeBakey and flow reversal was confirmed. A left carotid angiogram was then performed and the left internal carotid artery lesion was marked. HR and systolic blood pressures were adequate with HR of about 80 and blood pressure between 140 and 160 systolic. The lesion was then crossed using a 0.014'' guidewire. The lesion was then pre-dilated using a 4.5mm x 35mm balloon. This balloon was then exchanged and primary stenting was performed with the Transcarotid stent, appropriately sized (6-8mm). Post dilation was performed with a 4.5x35mm balloon to 14 ATMs. Completion carotid angiography demonstrated patent stent with <30% residual stenosis Antegrade flow was restored following release of the common carotid artery clamp. The arterial sheath was removed and U-Stitch tied. The femoral venous sheath was removed and pressure held for 5 min with adequate hemostasis. Adequate hemostasis was seen of the carotid artery. The wound was inspected and adequate hemostasis was obtained. It was then closed with a running 3-0 Vicryl suture for the platysmal layer and a 4-0 subcuticular Vicryl suture for the skin edges. Dermabond was used for dressing. Patient awoke from anesthesia without difficulties. Was neurovascularly intact, moving all extremities and following commands at case completion. The patient left the operating room in satisfactory condition and tolerated the procedure well Dr. Haddad was present and scrubbed for the entire procedure. A total of 30mGy, 6.1 min of fluoroscopy time, and 12cc of contrast were used during the procedure. I attest to the content of the Intraoperative Record and any orders documented therein. Any exceptions are noted below. Supervising Physician Co-Signing Physician Notes Ramakrishna Haddad MD
[2023-08-29] MEDS: VISIPAQUE IV PRN (10:01)
[2023-08-29] MEDS: fentaNYL citrate PF 100 MCG/2 ML VIAL IV PRN (10:11)
--- NOTE | 2023-08-29 10:49 | Anesthesiology Progress Note ---
Date of Service August 29, 2023 Anesthesia Post Procedure Vital Signs Vital Signs: Temp Pulse Pulse Resp BP BP BP 08/29/23 10:30 36.4 C L 81 21 124/45 L 138/46 L 08/29/23 10:20 66 18 109/40 L 123/48 L 08/29/23 10:10 81 12 120/42 L 131/47 L 08/29/23 10:00 81 15 132/48 L 134/53 L 08/29/23 09:54 36.0 C L 82 19 141/52 H 145/50 H 08/29/23 06:30 75 20 169/89 H 187/63 H 08/29/23 06:00 36.8 C 83 20 215/78 H 189/136 H Pulse Ox O2 Del Method O2 Flow Rate 08/29/23 10:30 99 Nasal Cannula 2 08/29/23 10:20 95 Nasal Cannula 2 08/29/23 10:10 100 Nasal Cannula 2 08/29/23 10:00 100 Oxymask 5 08/29/23 09:54 100 Oxymask 5 08/29/23 06:30 98 Room Air 08/29/23 06:00 98 Room Air Pain Intensity Left Lower Neck: Pain Intensity: 2 Transfer of Care Handoff Completed per policy Notes Mental Status: alert / awake / arousable Patient Amnestic to Procedure: Yes Nausea / Vomiting: adequately controlled Pain: adequately controlled Airway Patency, RR, SpO2: stable & adequate BP & HR: stable & adequate Hydration State: stable & adequate Anesthetic Complications: no major complications apparent
--- NOTE | 2023-08-29 11:07 | Critical Care Consultation ---
Date of Consultation August 29, 2023 Assessment & Plan (1) Bilateral carotid artery stenosis: Postop day #0 status post left TCAR. Incision site appears been dry and intact. Will monitor neurovascular checks closely per vascular surgery recommendations. Left radial arterial line in place to monitor hemodynamics closely. Defer antihypertensive regimen to vascular surgeon. Defer antiplatelets and anticoagulant per vascular surgery. (2) Type 2 diabetes mellitus with hyperosmolar hyperglycemic state (HHS): Maintain euglycemia. Hemoglobin A1c 13.7 and Rx 08/30/2021. Patient typically on 7 units of glargine every morning and 500 mg twice daily and metoprolol. Every 6 hours glucose checks. Restart insulin once patient able to tolerate diet. (3) Hypertension: Antihypertensive regimen for vascular surgeon. (4) Tobacco abuse: Nicotine patch if needed. Smoking cessation advised. Plan ICU service will continue to monitor patient while she remains under ICU status. Thank you for the consult and please call questions History of Present Illness Reason for Consultation: Status post left TCAR Attending Physician: Ramakrishna Haddad MD History of Present Illness 72-year-old female with a history of type 2 diabetes mellitus, tobacco abuse, hypertension, CKD stage IIIa and recurrent UTI presenting to the hospital for an elective left TCAR. Neck CTA 08/22 revealed a prominent atherosclerotic plaque of the bilateral carotid bulbs resulting in high-grade stenosis with 90% stenosis on the left and 80% stenosis on the right. Areas of high-grade narrowing within the V2 segment of the right vertebral artery were also noted. Presently, the patient denies any complaints such as shortness of breath, chest pain, dizziness, weakness, fevers or chills. Notably patient did have an echo at [facility] which revealed an EF of 61%. Mild aortic valve sclerosis was present and mild mitral regurgitation was present. Preoperative labs reviewed and were notable for glucose of 124 on BMP from 08/15/2023, creatinine of 1.3, sodium 134 and hemoglobin of 11.9. Allergies Allergy/AdvReac Type Severity Reaction Status Date / Time No Known Allergies Allergy Verified 08/29/23 05:54 Home Medications Medication Instructions Recorded Confirmed Type lancets 33 gauge (IntelligenceBankTouch Delica #100 ea 09/02/21 08/03/23 Rx Lancets) blood sugar diagnostic (IntelligenceBankTouch #100 ea 09/03/21 Rx Verio test strips) lancets 33 gauge (OneTouch Delica #100 ea 09/03/21 Rx Plus Lancet) pen needle, diabetic 32 gauge x #50 ea 09/03/21 08/03/23 Rx 5/32" (Pen Needle) amlodipine 2.5 mg tablet 2.5 mg PO QAM 08/03/23 08/29/23 History aspirin 81 mg tablet,delayed 81 mg PO QAM 08/03/23 08/29/23 History release losartan 25 mg tablet 25 mg PO QAM 08/03/23 08/29/23 History atorvastatin 40 mg tablet 40 mg PO QAM 08/08/23 08/29/23 History insulin glargine 100 unit/mL (3 7 unit subcut QAM 08/08/23 08/29/23 History mL) subcutaneous pen (Basaglar KwikPen U-100 Insulin) metformin 500 mg 24 hr 500 mg PO BID 08/08/23 08/29/23 History tablet,extended release (gastric retention) clopidogrel 75 mg tablet 75 mg PO DAILY 08/15/23 08/29/23 History Patient History Medical History (Updated 08/29/23 @ 11:03 by Moris Frazier MD) Bilateral carotid artery stenosis Carotid artery disease Neck CTA 08/03/23: Prominent atherosclerotic plaque of the bilateral carotid bulbs results in high-grade stenosis with 90% stenosis on the left and 80% stenosis on the right. Areas of high-grade narrowing within the V2 segment right vertebral artery as above secondary to spondylotic spurring of the spine. Hx of ectopic High cholesterol HTN (hypertension) Diabetes IDDM CKD (chronic kidney disease) Stage 3 Follows with [facility] nephrology Surgical History S/P laparotomy for ectopic (unsure if she had a salpingectomy) History of cholecystectomy Family History Mother TIA (transient ischemic attack) FHx: carotid endarterectomy Other No family history of adverse response to anesthesia Social History Smoking Status: Former smoker Smoking End Date: Quit 2021 (hx 10 cigs/day x many years); Second Hand Exposure: No; Do You Dip or Chew Tobacco: No; Tobacco Cessation Education Requested by Patient: No Hx Alcohol Use: Yes Hx Substance Use: No Preferred Language: Romansh Communication Ability: Effective Payroll And Benefits Coordinator Required: No Beliefs That Will Affect Care: None Current Living Situation: Alone Current Living Situation Comment: son lives with patient Other Information That Helps Us Care for You: No Feels Safe at Home: Yes Safety Concerns: Feels Safe At This Time Assistive Devices: None Review of Systems Review of Systems: All systems reviewed & are unremarkable except as noted in HPI & below Physical Exam Physical Exam: Constitutional: Patient appears to be of their stated age. Patient is in no apparent distress. Patient is well-developed. Eyes: Pupils are equal round and reactive to light. Conjunctivae are normal. Anicteric sclera. Ears nose, mouth and throat: Mallampati class 2. Normal posterior oropharynx. Uvula is midline. Neck: Trachea is midline. Visual inspection is normal. Respiratory: Clear to auscultation bilaterally. No use of accessory muscles. No significant clubbing noted. Cardiovascular: Regular rate and rhythm. No murmurs. No edema. Left TCAR site is nonpulsatile. Dressing intact. No obvious bleeding. Right groin puncture site appears intact without pulsatility. Good distal pulses in the lower extremity Gastrointestinal: Normal bowel sounds, soft, nontender and nondistended. No hepatosplenomegaly noted. Musculoskeletal: No cyanosis. Patient is able to move all extremities. Strength is 5 out of 5 in the upper and lower extremities. Skin: No rashes, warm dry and intact. Neurologic: No obvious focal neurological deficits seen. Psychiatric: Alert and oriented x3 with a euthymic affect. Results & Data Results & Data Vital Signs (Past 12 Hours) Vital Signs Temp Pulse Pulse Resp BP BP BP 08/29/23 10:30 36.4 C L 81 21 124/45 L 138/46 L 08/29/23 10:20 66 18 109/40 L 123/48 L 08/29/23 10:10 81 12 120/42 L 131/47 L 08/29/23 10:00 81 15 132/48 L 134/53 L 08/29/23 09:54 36.0 C L 82 19 141/52 H 145/50 H 08/29/23 06:30 75 20 169/89 H 187/63 H 08/29/23 06:00 36.8 C 83 20 215/78 H 189/136 H Pulse Ox O2 Del Method O2 Flow Rate 08/29/23 10:30 99 Nasal Cannula 2 08/29/23 10:20 95 Nasal Cannula 2 08/29/23 10:10 100 Nasal Cannula 2 08/29/23 10:00 100 Oxymask 5 08/29/23 09:54 100 Oxymask 5 08/29/23 06:30 98 Room Air 08/29/23 06:00 98 Room Air Coding Level of Care Code 99848 IN/OBS CONSULT LVL 4,60M Diagnoses Bilateral carotid artery stenosis I65.23 Type 2 diabetes mellitus with hyperosmolar hyperglycemic state (HHS) E11.00; E11.65 Hypertension I10 Tobacco abuse Z72.0
[2023-08-29] MEDS ORDERED: PHENYLEPHRINE/NSS 25 MG/250 ML BAG IV PRN (11:26)
[2023-08-29] MEDS ORDERED: NITROPRUSSIDE SODIUM 50 MG in DEXTROSE 5% 500 ML IV PRN (11:26)
[2023-08-29] MEDS ORDERED: PHARMACY GLYCEMIC MGMT CONSULT PRN ×2 (11:26→12:24)
[2023-08-29] MEDS: LACTATED RINGER'S 1,000 ML IV SCH (11:47)
[2023-08-29] MEDS ORDERED: MODERATE STRESS LEVEL ONE (12:22)
[2023-08-29] MEDS ORDERED: GLUCAGON FOR INJ 1 MG VIAL SQ PRN (12:24)
[2023-08-29] MEDS ORDERED: GLUCOSE 10 TAB/TUBE PO PRN (12:24)
[2023-08-29] MEDS ORDERED: DEXTROSE 50% 50 ML SYRINGE IV PRN (12:24)
[2023-08-29] MEDS ORDERED: GLUCOSE 40% GEL 15 GM TUBE PO PRN (12:24)
[2023-08-29] MEDS ORDERED: CARBOHYDRATES FOR HYPOGLYCEMIA PO PRN (12:24)
[2023-08-29] MEDS ORDERED: LANTUS PER UNIT CHARGE SC SCH ×2 (12:45→15:00)
[2023-08-29] MEDS: INSULIN ASPART PER UNIT CHARGE SC SCH (13:07)
--- NOTE | 2023-08-29 15:05 | Pharmacy Report ---
Pharmacy Glycemic Short Note 2 - Date of Service August 29, 2023 - Glycemic Short BSG Results (Last 24 hours): 08/29/23 08/29/23 08/29/23 06:09 09:57 11:50 POC Glucose 123 H 182 H 188 H OUTPATIENT ANTIDIABETIC REGIMEN: * Basaglar 7 units SC qam * metformin 500mg BID * A1C: 13.7% 08/30/21, repeat ordered for tomorrow ASSESSMENT: * Patient post op day #0 for left TCAR. Post op BSG was 188mg/dL. * Patient does have additional factors that may contribute to hyperglycemia such as infusions mixed in dextrose (phenylephrine and nitroprusside) and possible steroids (dexamethasone pulled in the OR but unclear if this was administered). If so, novolog scale likely will need to be tightened. Patients last A1c was also significantly elevated, however this is 2 years old. * Patient is ordered a diet. PLAN FOR INPATIENT GLYCEMIC CONTROL: * Hold outpatient oral diabetes medications * Basal insulin * Lantus 10 units SQ X1 * Lantus 0 or 5 units based on BSG (see MAR for details) * Bolus insulin * NovoLog per scale ACHS or Q6hrs while NPO * Goal Range: Low 110 mg/dL - High 140 mg/dL * Correction Factor: 30 mg/dL/unit * Nutritional / Prandial insulin per carb ratio of 1 unit per 10 grams CHO consumed
[2023-08-29] MEDS: LANTUS PER UNIT CHARGE SC STA (15:42)
[2023-08-29] MEDS ORDERED: INSULIN ASPART PER UNIT CHARGE SC SCH (16:30)
[2023-08-29] MEDS: ceFAZolin 2000MG 2,000 MG/15 ML SYR IV SCH (16:54)
[2023-08-29] MEDS: LANTUS PER UNIT CHARGE SC SCH (21:08)
[2023-08-30] MEDS: INSULIN ASPART PER UNIT CHARGE SC SCH (00:07)
[2023-08-30] MEDS: oxyCODONE/ACETAMINOPHEN 5mg/325mg TAB PO PRN (00:48)
[2023-08-30 07:21] LABS: Estimated Average Glucose 140 mg/dl; Hemoglobin A1C 6.5 % (4.5-5.6)
--- NOTE | 2023-08-30 08:30 | Surgery Progress Note ---
Date of Service August 30, 2023 Assessment & Plan (1) Bilateral carotid artery stenosis: Plan: Patient is day 1 post left TCAR. She is doing extremely well. She will be discharged later today. Will see her in the office in 2 weeks for follow-up. Admission and Anticipated Discharge Date Admission Date: August 29, 2023 Subjective Patient is doing well without any complaints. She is eating without difficulty. She complains of minimal soreness in the incision site. She does not complain of any neurological deficits. Physical Exam Constitutional: WD/WN, vitals as above Neck: trachea midline Respiratory: normal respiratory effort; no respiratory distress Cardiovascular: Rate/Rhythm: regular rate and regular rhythm Skin: + incision (Incision is dry and clean wi th no significant swelling.) Neurologic: CN's II-XI intact bilaterally and moves all extremities Results & Data Vital Signs (Past 12 Hours) Vital Signs Temp Pulse Resp BP Pulse Ox 08/30/23 04:16 36.6 C 08/30/23 03:01 36.6 C 08/30/23 03:00 58 L 19 94 08/30/23 03:00 138/57 L 08/30/23 02:00 138/60 08/30/23 02:00 65 20 94 08/30/23 01:00 147/64 H 08/30/23 01:00 67 19 95 08/30/23 00:00 73 23 94 08/30/23 00:00 155/57 H 08/29/23 23:30 78 18 94 08/29/23 23:01 36.6 C 08/29/23 23:00 77 18 94 08/29/23 23:00 156/66 H 08/29/23 22:51 79 08/29/23 22:30 82 21 94 08/29/23 22:00 149/73 H 08/29/23 22:00 77 20 94 08/29/23 21:30 83 21 95 08/29/23 21:01 166/66 H 08/29/23 21:01 84 21 94 08/29/23 21:00 85 17 95 08/29/23 20:30 77 21 96
[2023-08-30] MEDS: LANTUS PER UNIT CHARGE SC SCH (08:44)
[2023-08-30] MEDS: amLODIPine BESYLATE 5 MG TAB PO SCH (08:45)
[2023-08-30] MEDS: LOSARTAN POTASSIUM 25 MG TAB PO SCH (08:46)
[2023-08-30] MEDS: ATORVASTATIN 40 MG TAB PO SCH (08:46)
[2023-08-30] MEDS: ASPIRIN 81 MG ECTAB PO SCH (08:46)
[2023-08-30] MEDS ORDERED: NON-FORMULARY MEDICATION (Insulin Glargine [Basaglar Kwikpen U-100 Insulin] 100 unit/mL (3 SQ SCH (09:00)
--- NOTE | 2023-09-01 09:48 | Discharge Summary ---
Date of Service September 01, 2023 Admission HPI Per Admitting Provider Chief Complaint rm#7 here for BEATRICE Reason for Consultation Bilateral carotid stenosis History of Present Illness I had the pleasure of seeing Liv today for evaluation of her carotid disease. As you know she is a 72-year-old female who was found to have bilateral carotid bruits. Ultrasound shows 70 to 99% narrowing of both internal carotid arteries with ratio 4.7 on the right 4.0 on the left. Velocity on the right was 359 and the left 403. She has no history of TIA, amaurosis fugax, or cerebrovascular accidents. She has a history of smoking but quit 2 years ago. She has no claudication of her upper or lower extremities. She does have a history of diabetes hypertension, and chronic kidney disease. Her last GFR was 42. Review of Systems 10 systems were reviewed. Only positive findings are frequent bladder infections. The rest of the positive findings are pretty HPI. Physical Exam Vitals & Measurements HR: 71 (Monitored) BP: 152/72 SpO2: 98% WT: 76.9 kg WT: 76.900 kg (Dosing) Input and Output - Last 24 hours (Last 8 hours) No I/O Data Found: On exam she is awake alert and oriented x 3. She is in no apparent distress. Her blood pressure is 152/74 on the left and 152/72 on the right. She does have bilateral carotid bruits. Her lungs are clear. Abdominal exam is benign. I cannot appreciate a dilated aortic pulse. Heart regular rate and rhythm. Her radial carotid pulses are +2 bilaterally. Femorals and pedal pulses are all +2 bilaterally. Neurologic exam is intact to motor and sensory function. Assessment/Plan 1. Carotid stenosis, bilateral This point recommend CT angiogram to better define the carotid anatomy. If the CT angio matches the carotid ultrasound then carotid intervention will be recommended. If he is a candidate and will most likely recommend a TCAR of the carotid artery. Being that she is concerned about her GFR being 42 we will do pre and post procedure hydration for the CT angio. We will keep you informed of our future plans. Thank you very much for letting us participate in the care of this patient. Sincerely, Sanjana Haddad MD I have personally spent __55___ minutes performing [id number] and no [id number] activities on this date of service. Activities Include: _x_ review of the medical record _x_ obtaining a history _x_ physical exam/evaluation __ review labs _x_ review radiology reports _x_ counseling/educating patient/family/caregiver __ discussion/referral to other healthcare professional _x_ documenting care in the medical record __ independent interpretation of results __ communication of results to patient/family/caregiver __ coordination of care Problem List/Past Medical History Ongoing Carotid stenosis, bilateral Procedure/Surgical History Removal of ectopic fetus Cholecystectomy Medications Home amLODIPine(amLODIPine 2.5 mg oral tablet), 2.5 mg= 1 tab, PO, Daily aspirin(aspirin 81 mg oral tablet, chewable), 81 mg= 1 tab, PO, Daily atorvastatin(atorvastatin 40 mg oral tablet), 40 mg= 1 tab, PO, Daily insulin glargine(insulin glargine 100 units/mL subcutaneous solution), 9 unit, subQ, qAM losartan(losartan 25 mg oral tablet), 25 mg= 1 tab, PO, Daily metFORMIN(MetFORMIN (Eqv-Glucophage XR) 500 mg oral tablet, extended release), 1000 mg= 2 tab, PO, qPM Allergies NKA Social History Smoking Status Former Smoker, quit > 1 yr Signature Line Electronic Signature on File Ramakrishna Haddad MD Author Signature Dt/Tm: 07/19/2023 09:11 AM Delivery Table Operator Gerardo Chastity [facility] [address] [place] [address] Electronically Reviewed/Signed by: Ramakrishna Haddad MD Cosigner Signature Dt/Tm: 07/19/2023 09:12 AM Delivery Table Operator Gerardo Chastity [address] [place] [address] EJS Result Type: .Outpt Ltr Date of Service: July 19, 2023 09:06 EDT Authorization Status: Modified Subject: Consult Note Author or Import Date: MD Boo, Ramakrishna Diggs on July 19, 2023 09:11 EDT Verified By: MD Boo, Ramakrishna Diggs on July 19, 2023 09:11 EDT Encounter info: [id number], [facility], [facility], 07/19/2023 - 07/19/2023 Admission Exam Per Admitting Provider On exam she is awake alert and oriented x 3. She is in no apparent distress. Her blood pressure is 152/74 on the left and 152/72 on the right. She does have bilateral carotid bruits. Her lungs are clear. Abdominal exam is benign. I cannot appreciate a dilated aortic pulse. Heart regular rate and rhythm. Her radial carotid pulses are +2 bilaterally. Femorals and pedal pulses are all +2 bilaterally. Neurologic exam is intact to motor and sensory function. Principal Diagnosis 1. s/p L TCAR 2. Bilateral ICA stenosis Discharge Exam Constitutional WD/WN, vitals as above Neck trachea midline Respiratory normal respiratory effort; no respiratory distress Cardiovascular Rate/Rhythm: regular rate and regular rhythm Skin + incision (Incision is dry and clean with no significant swelling.) Neurologic CN's II-XI intact bilaterally and moves all extremities Discharge Data Allergies Allergy/AdvReac Type Severity Reaction Status Date / Time No Known Allergies Allergy Verified 08/29/23 05:54 Consultations 08/29/23 11:26 Consult Logistics/Shipper Routine Procedures Performed Operation Date: 08/29/23 08:00 Actual Procedures p Left Transcarotid Artery Revascularization(Left) - Ramakrishna Haddad MD Ordered Studies 08/29/23 07:16 EV angio carotid cerv LT Routine 08/29/23 07:17 US EV guide vascular access Routine Hospital Course (1) Bilateral carotid artery stenosis: Patient is day 1 post left TCAR. She is doing extremely well. She will be discharged later today. Will see her in the office in 2 weeks for follow-up. Total Time Total Time Spent Total Time Spent (In Minutes): 0 Discharge Plan Discharge Items Patient Disposition: Home - Self-Care Reason For Visit: Left Carotid Artery Stenosis Discharge Diagnosis: Left internal carotid artery stenosis Activity: Per Instructions section Non-emergency contact: Surgeon Call non-emergency contact if: your temperature is above 101.5, your wound has increased redness, your wound has increased drainage and your wound pain has increased Follow-up/Referrals: Torie Mcintyre MD [Primary Care Provider] - Diet: Carb Consistent or DM2 and Heart Healthy Addtl Attending Provider Instructions: SPECIAL CARE INSTRUCTIONS: Medications: * Continue to take Aspirin, Plavix, and statin as directed. Incision Care: * You may shower, but do not rub incision. You may let the warm soapy water run over it. Be sure to dry the incision well after bathing. * Do not shave directly over the incision until it is healed. * DO NOT IMMERSE THE INCISION IN A TUB/POOL/etc. UNTIL HEALED. Restrictions: * Do not drive for at least one week or if you are still taking any narcotic pain medication. * Do not lift anything heavier than a gallon of milk for one week after going home. Possible Complications: * Numbness - It is normal to have some numbness around the incision. Numbness can extend beyond the incision to areas of the neck, ear and face. The numbness is due to bruising of nerves during the surgery and will gradually improve over a period of months. * Hoarseness/Difficulty Speaking and Swallowing - The bruising of nerves in the neck can also cause a hoarse voice, difficulty speaking or swallowing. This may improve over time, HOWEVER, if it continues for more than a few days please contact our office ([phone]). * Excessive Swelling - There will be some swelling immediately after surgery which usually resolves within one week. If you notice that the swelling is getting worse, notify your surgeon ([phone]). * Drainage/Bleeding - If there is any drainage or bleeding, it should be a very small amount (less than a teaspoon per day). If you have excessive bleeding or drainage from the incision, call your surgeon ([phone]) right away. ACTIVATION OF EMERGENCY MEDICAL SYSTEM: Call 911, immediately, if you experience any of the following: Warning Signs and Symptoms of Stroke: * Sudden numbness or weakness of the face, arm or leg, especially on one side of the body * Sudden confusion, trouble speaking or understanding * Sudden trouble seeing in one or both eyes * Sudden trouble walking, dizziness, loss of balance or coordination * Sudden severe headache with no cause Do not delay calling 911 if you experience any warning signs or symptoms of a stroke. Delay in seeking medical attention may affect what treatments can be given to you. Risk Factors for Stroke: You can reduce your chances of stroke by working with your medical provider to adopt a healthy lifestyle. Some specific ways to lower your chance of stroke are: * If you are a smoker, now is the time to stop smoking cigarettes * If you are diabetic, improve the control of your blood sugars * Avoid excessive amounts of alcohol * Control high blood pressure * Lose weight if you are overweight * Be sure to lead an active lifestyle * Eat a healthy diet low in salt, cholesterol and fat You should know about other risk factors for stroke that you are unable to control. These include: * Age 55 years or older * Male gender * Certain racial groups: , or / * Family History of Stroke, Mini stroke or Heart Attack * Sickle Cell Disease You will be receiving a call from the Vascular Surgery Nurse after you are discharged. FOLLOW UP VISIT: It is important for you to keep your follow up appointments with your medical provider. Keep any scheduled doctor appointments. Call [phone] to schedule a follow up appointment if one not already scheduled. Pending Studies at Discharge: No Stand-Alone Forms: My [facility] [employer], Smoking Cessation Medications and DC Order Prescriptions: New oxycodone-acetaminophen [Percocet] 5-325 mg tablet 1 tab PO Q8H PRN (Reason: pain) Qty: 10 0RF Continued (DME) lancets [OneTouch Delica Lancets] 33 gauge misc See Rx Instructions .Route Qty: 100 0RF Rx Instructions: As directed (DME) lancets [OneTouch Delica Plus Lancet] 33 gauge misc See Rx Instructions .Route Qty: 100 0RF Rx Instructions: TID (DME) pen needle, diabetic [Pen Needle] 32 gauge x 5/32" needle See Rx Instructions .Route Qty: 50 0RF Rx Instructions: once daily (DME) OneTouch Verio test strips Strip See Rx Instructions .Route Qty: 100 0RF Rx Instructions: tid amlodipine 2.5 mg Tablet 2.5 mg PO QAM aspirin 81 mg Tablet,Delayed Release (Dr/Ec) 81 mg PO QAM losartan 25 mg Tablet 25 mg PO QAM metformin 500 mg tablet,ER tabitha.retention 24 hr 500 mg PO BID Rx Instructions: With Dinner insulin glargine [Basaglar KwikPen U-100 Insulin] 100 unit/mL (3 mL) insulin pen 7 unit subcut QAM atorvastatin 40 mg Tablet 40 mg PO QAM clopidogrel 75 mg Tablet 75 mg PO DAILY Discharge Orders: Discharge Order (Routine); Ordered 08/30/23 Ordered By: Ramakrishna Bailey/Other Patient Handouts: Managing Type 2 Diabetes Admission Data Admit Date/Time: 08/29/23 07:34 Attending Provider: Ramakrishna Haddad Admit Provider: Ramakrishna Haddad Primary Care Provider: Torie Mcintyre Other Providers: Patrice Vazquez; Clayton Soto; Moris Frazier; Delfin Gonzalez; Lencho Long; Jerri Walker; Bradford Feldman; Amanda Borges; Aggie Sands; Harrison Tiwari; Segun López; Marissa Bardales Other Interventions: Discharge Summary Assessment (RN) Last Done: 08/30/23 09:32
== END 2023-08-30 10:05 | disposition home or self-care (01) | DRG 34 ==
LOC: ASU 05:41 → 1E 07:34
PROC: EV.TCAR (2023-08-29 08:00)

== ENCOUNTER 2023-10-23 13:17 | Inpatient (IN) ==
--- NOTE | 2023-10-23 13:30 | ED Triage Note ---
Date of Service October 23, 2023 Provider in Triage Author: Lore Alvarado History of Present Illness This patient was briefly evaluated while in triage. An abbreviated physical exam was performed. This patient is a 72-year-old Female who presents to the ED for evaluation of right hand numbness and slurred speech. Surgery 08/[address] Haddad on Left carotid artery due to 90% blockage. Pt. scheduled for right sided surgery in October due to 80% right carotid artery blockage. States having some numbness on the back of the right hand. States she is slurring words and also getting numbness on the left side of the face. Has had 3 episodes of similar symptoms in the past week which have resolved in about 10 minutes, but symptoms today lasted somewhat longer. States today, onset of symptoms 1 hour ago. Denies sensation of any symptoms at this time. Physical Exam VITALS: Vitals are noted on the nurse's note and reviewed by myself. GENERAL: This is a 72 year old female, in no acute distress, nondiaphoretic, well-developed well-nourished. SKIN: No obvious rashes, edema, erythema HEAD: Normocephalic atraumatic. EYES: Conjunctivae without injection, sclerae without icterus. NECK: No JVD. LUNGS: No retractions or accessory muscle use. MUSCULOSKELETAL: Normal gait. NEURO: Patient was alert and oriented to person place and time. No focal neurological deficits. Initial orders for labs and / or imaging were placed and patient was placed in the waiting area until a bed is available. Please see further documentation for the full ED course.
--- OUTSIDE RECORDS SUMMARY | 2023-10-23 13:41 | External Medical Summary | Continuity of Care Document ---
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 Name Role Phone Torie Mcintyre Primary Care Physician [phone] [id number] Date(s): 10/10/23 - 10/10/23 [facility] [address], [address] [place] [address] [phone] Encounter Diagnosis Carotid stenosis, bilateral(Discharge Diagnosis) - 10/02/23 Discharge Disposition: Home or Self Care Attending Physician: MD Haddad Eugene J Referring Physician: MD Haddad Eugene J Allergies, Adverse Reactions, Alerts No Known Allergies Medications amLODIPine 2.5 mg oral tablet Start: 07/19/23 7:56:00 AM EDT, 1 tab, PO, Daily Start Date: 07/19/23 Status: Ordered aspirin 81 mg oral tablet, chewable Start: 07/19/23 7:56:00 AM EDT, 1 tab, PO, Daily Start Date: 07/19/23 Status: Ordered atorvastatin 40 mg oral tablet Start: 07/19/23 7:56:00 AM EDT, 1 tab, PO, Daily Start Date: 07/19/23 Status: Ordered insulin glargine 100 units/mL subcutaneous solution Start: 07/19/23 7:57:00 AM EDT, 9 unit =, subQ, qAM Start Date: 07/19/23 Status: Ordered losartan 25 mg oral tablet Start: 07/19/23 7:57:00 AM EDT, 1 tab, PO, Daily Start Date: 07/19/23 Status: Ordered MetFORMIN (Eqv-Glucophage XR) 500 mg oral tablet, extended release Start: 07/19/23 7:57:00 AM EDT, 2 tab, PO, qPM Start Date: 07/19/23 Status: Ordered Plavix 75 mg oral tablet Start: 10/02/23 10:52:00 AM EDT, 1 tab, PO, Daily, Disp# 90 tab, Refills: 3, Pharmacy: [id number] Start Date: 10/02/23 Status: Ordered Problem List Condition Confirmation Course Effective Dates Status Health St atus Informant Carotid stenosis, bilateral Confirmed Active Diagnosis Diagnosis Type Effective Dates Health Status Cl inical Service Informant Carotid stenosis, bilateral Discharge Diagnosis 10/02/23 Non-Specified Procedures Procedure Date Related Diagnosis Body Site Status left TCAR 08/29/23 Completed Cholecystectomy Completed Removal of ectopic fetus Completed Results Radiology Reports * Exam Date Time Procedure Performing Provider Status 10/10/23 8:16 AM VL Carotid Duplex Unilat/Limited Betzy Shien; Final Notes: (VL Carotid Duplex Unilat/Limited) Reason For Exam: Post tcar VL Carotid Duplex Unilat/Limited [facility] FINAL REPORT Name: OSIRIS GONZALEZ : 1950 Visit: [id number] Date: 10 Oct 2023 TYPE OF TEST: Cerebrovascular Duplex REASON FOR TEST Known carotid stenosis, Left TCAR (08/29/23) INTERPRETATION/FINDINGS Duplex imaging performed of the LEFT extracranial arteries: 1. Patent left distal common carotid, carotid bulb and proximal internal carotid artery stents with no evidence of restenosis. 2. >50% stenosis in the left external carotid artery. 3. Normal, antegrade flow in the left vertebral artery. 4. Normal flow in the left subclavian artery. No prior exam available for comparison. IMPRESSION/COMMENTS I have personally reviewed the data relevant to the interpretation of this study. TECHNOLOGIST: Betzy Biswas , RDCS, RVT PHYSICIAN: Isabel Moseley Signed: 10/10/2023 03:55 PM Final Dictated by:Devan Henderson MD, Maria C Dictated DT/TM:10/10/2023 3:55 Signed by:Devan Henderson MD, Maria C Signed (Electronic Signature):10/10/2023 3:55 p Transcribed by:[facility] Social History Social History Type Response Smoking Status Former Smoker, quit > 1 yr Sex Female Patient Care team information Care Team Personnel Name: MD Mcintyre Sapana Position: Referring DIRECT Member Role: Primary Care Provider Address: Address: [address] [place] [address] Name: EPHRAIM Smith Lynn Position: Physician Brick Mason Exempt - [facility] Surg Member Role: Lifetime Relationship Address: Address: [address] [place] [id number]
--- OUTSIDE RECORDS SUMMARY | 2023-10-23 13:41 | External Medical Summary | Continuity of Care Document ---
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 Name Role Phone Torie Mcintyre Primary Care Physician [phone] [id number] Date(s): 09/14/23 - 09/14/23 [facility] [address], [address] [place] [address] [phone] Encounter Diagnosis Carotid stenosis, bilateral(Discharge Diagnosis) - 09/14/23 Discharge Disposition: Home or Self Care Attending Physician: MD Haddad Eugene J Referring Physician: MD Mcintyre Sapana Allergies, Adverse Reactions, Alerts No Known Allergies [...] Plavix 75 mg oral tablet Start: 08/07/23 3:18:00 PM EDT, 1 tab, PO, Daily, Disp# 30 tab, Refills: 11, Pharmacy: [facility][id number] Start Date: 08/07/23 Status: Ordered Mental Status 09/14/23 Barriers to Learning one year None evide nt Mandatory Health Literacy Documentation Yes Health Literacy Communication Barriers N ever Primary Language Frisian Problem List Condition Confirmation Course Effective Dates Status Health St atus Informant Carotid stenosis, bilateral Confirmed Active Diagnosis Diagnosis Type Effective Dates Health Status Cl inical Service Informant Carotid stenosis, bilateral Discharge Diagnosis 09/14/23 Non-Specified Procedures Procedure Date Related Diagnosis Body Site Status left TCAR 08/29/23 Completed Cholecystectomy Completed Removal of ectopic fetus Completed Vital Signs Most recent to oldest [Reference Range]: 1 Heart Rate 85 bpm (09/14/23 9:38 AM) Blood Pressure 126/60mmHg (09/14/23 9:38 AM) Cuff Pulse Pressure 66 mmHg (09/14/23 9:38 AM) BP Location # 1 Right Arm (09/14/23 9:38 AM) Social History Social History Type Response Smoking Status Former Smoker, quit > 1 yr Sex Female Patient Care team information Care Team Personnel Name: MD Mcintyre Sapana Position: Referring DIRECT Member Role: Primary Care Provider Address: Address: [address] [place] [address] [place] Name: EPHRAIM Smith Lynn Position: Physician 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
[2023-10-23 14:11] LABS: Appearance Urine Clear (Clear); Bacteria Urine Automated None Seen (None Seen); Bilirubin Urine Negative (Negative); Blood Urine Negative (Negative); Cast Urine Automated 0-2 /lpf (0-2); Color Urine Yellow; Glucose Urine UA Negative (Negative); Ketones Urine Negative (Negative); Leukocyte Esterase Urine 2+ (Negative); Nitrite Urine Negative (Negative); Protein Urine Negative (Negative); RBC Urine Automated 0-2 /hpf (0-2); Specific Gravity Urine 1.007 (1.000-1.030); Urobilinogen Urine Negative (Negative); pH Urine 6.5 (4.5-7.5)
--- NOTE | 2023-10-23 14:12 | XRay Report ---
XR chest 1V portable CLINICAL HISTORY: neuro deficit, acute stroke suspected TECHNIQUE: Single frontal radiograph of the chest was obtained. Comparison: Comparison is made to chest radiograph 08/15/2023 FINDINGS: No lines and tubes are seen. Calcified aortic knob is seen. The lungs are clear. No evidence of pleur al effusion or pneumothorax. IMPRESSION: No acute chest disease. ACT 112: Negative or not required by law. Electronically signed by: Rojas Huerta M.D. 10/23/2023 2:11 PM
[2023-10-23 14:16] LABS: Basophils # (auto) 0.07 K/uL (0.00-0.20); Basophils % (auto) 0.8 %; Eosinophils # (auto) 0.57 K/uL (0.00-0.50); Eosinophils % (auto) 6.4 %; Hematocrit (blood only) 37.2 % (37.0-47.0); Hemoglobin 11.8 g/dl (12.0-16.0); Immature Granulocytes # (auto) 0.03 K/uL (0.01-0.20); Immature Granulocytes % (auto) 0.3 %; Lymphocytes # (auto) 2.23 K/uL (1.20-3.40); Mean Corpuscular Hemoglobin 28.6 pg (25.0-34.0); Mean Corpuscular Hgb Conc 31.7 g/dL (32.0-36.0); Mean Corpuscular Volume 90.1 fL (80.0-100.0); Mean Platelet Volume 10.4 fL (9.4-12.4); Monocytes # (auto) 0.73 K/uL (0.11-0.59); Monocytes % (auto) 8.2 %; Neutrophils % (auto) 59.3 %; Platelet Count 377 K/uL (130-400); RDW Coefficient of Variation 13.2 % (11.5-14.5); RDW Standard Deviation 43.8 fL (36.4-46.3); Red Blood Count 4.13 M/uL (4.20-5.40); White Blood Count 8.93 K/ul (4.8-10.8)
[2023-10-23 14:35] LABS: Albumin Globulin Ratio 1.2 (0.9-2); Albumin Level 4.6 gm/dl (3.4-5.0); BUN Creatinine Ratio 13.7 (10-20); Bilirubin,Total 0.4 mg/dl (0.2-1.0); Calcium 9.8 mg/dl (8.6-10.3); Creatinine Clr Calc Pharmacy 36.9 ml/min; Est GFR (Non-African American) 35.3 ml/min; Globulin 3.8 gm/dl (2.5-4.0); Magnesium 1.9 mg/dl (1.7-2.4); Potassium 3.8 mmol/L (3.5-5.1); Total Protein 8.4 gm/dl (6.0-8.3)
[2023-10-23 14:39] LABS: Partial Thromboplastin Ratio 1.1; Partial Thromboplastin Time 29 Seconds (21-31); Prothrombin Time 10.8 Seconds (9.0-12.0)
[2023-10-23 14:41] LABS: Troponin I High Sensitivity 5.3 pg/ml (0-14)
[2023-10-23] MEDS: SODIUM CHLORIDE 0.9% 1,000 ML IV ONE (15:14)
[2023-10-23] MEDS: OPTIRAY 320 125ml IV ONE (15:18)
--- NOTE | 2023-10-23 15:25 | Emergency Department Note ---
Impression & Plan Stroke-like symptoms ED Provider Note ED Provider Note NAME: OSIRIS MARIE AGE:72 SEX: Female : 1950 ARRIVES VIA: EMS INFORMANT: Patient ED PROVIDER(s): Karuna Laboy DO CHIEF COMPLAINT: Strokelike symptoms HPI: This is a 72-year-old female who presents emergency department due to concern for episode of strokelike symptoms today. She states she was at her son's and began noticing numbness to the back of her right hand, the right side of her face and jaw, and had accompanying dysarthria. She states the symptoms lasted for about 10 minutes however family was concerned and called 911. Patient states she has had 2 prior episodes since her left carotid surgery by vascular back in July. She states the first was on and she thought it was more likely related to heat and sun exposure and did not seek any evaluation. She states she had a similar episode that lasted last week. She states all the episodes have lasted 5 to 10 minutes and resolve spontaneously. She states she has been taking low-dose aspirin as well as Plavix since her carotid surgery. No other change in diet or medications. She states at this time she is asymptomatic and feels back to normal. PAST MEDICAL HISTORY:See Below PAST SURGICAL HISTORY:See Below FAMILY HISTORY:See Below SOCIAL HISTORY:See Below HOME MEDICATIONS:See Below ALLERGIES:See Below VITALS:See Below PHYSICAL EXAMINATION: GENERAL: alert, well appearing, well nourished, no distress, non-toxic EYE EXAM: normal conjunctiva, PERRL and EOM's grossly intact OROPHARYNX: no exudate, no erythema, lips, buccal mucosa, and tongue normal and mucous membranes are moist NECK: supple, no nuchal rigidity, no adenopathy, non-tender LUNGS: Clear to auscultation. Normal chest wall mechanics, no w/r/r HEART: no murmurs, S1 normal and S2 normal ABDOMEN: abdomen soft, non-tender, normo-active bowel sounds, no masses, no rebound or guarding. SKIN: no rashes, petechiae, orbruising UPPER EXTREMITIES: upper extremities are grossly normal. FROM, nml pulses b/l. LOWER EXTREMITIES: No pitting edema. FROM, nml pulses b/l. NEURO EXAM: Normal sensorium, cranial nerves II-XII grossly intact, normal speech, no facial droop,nogross weakness of arms, no gross weakness of legs. Gross sensation intact. No ataxia. Negative pronator drift. Normal [id number]. Vital Signs: reviewed and remarkable Differential Diagnosis: ischemic Stroke, hemorrhagic stroke, bells palsy, mass, neoplasm, migraine headache, seizure, subarachnoid hemorrhage, TIA, and transient global amnesia, as well as others were considered. MEDICAL DECISION MAKING: This is a 72-year-old female presents emergency room due to concern for abrupt onset of right hand and right face paresthesias as well as dysarthria which lasted approximately 10 minutes. Symptoms resolved by time of arrival here. Patient afebrile and hemodynamically stable on arrival. Labs drawn and sent, IV established, EKG and chest ray performed bedside interpreted me and patient monitored on telemetry. Patient no recurrent symptoms while present in the emergency room. Due to recent carotid surgery, and findings on CT angiography of the neck, case was discussed with Dr. Haddad. He was in agreement with plan for admission, additional workup for TIA/CVA, and will see her in consult. Case discussed with the hospitalist team for additional evaluation and management. Patient and son at bedside updated on all results, discussion with vascular, and were in agreement with the plan. Consultation(s): 1555: Discussed with Dr. Haddad. He reviewed the images and certainly with the patient's case. Recommends admission for MRI. States he will see her in consult while here as she may require additional operative intervention. Patient does not require any additional anticoagulation at this time. 1620: Discussed with Tatiana Miles hospitalist team, for additional evaluation and management. ER Treatment Provided: See below Diagnostics Interpreted By Me: -ECG: Normal sinus at 83, normal axis, normal intervals, no acute ST/T wave changes -Cardiac Monitoring: An order was placed for continuous cardiac monitoring. The monitor shows a rate of 76 with normal sinus rhythm. -Laboratory studies: As stated above and show below. -Imaging studies: X-ray Chest: A single view study of the chest was reviewed and was negative for cardiomegaly, focal infiltrate, effusion, pulmonary edema, or wide mediastinum. Triage Nursing Note Reviewed Prior/Outside Records Reviewed -prior CT angiography and operative note reviewed Past Med/Surg History Problem List Stroke-like symptoms (Acute) Bilateral carotid artery stenosis Pseudohyponatremia Tobacco abuse Hypertension Type 2 diabetes mellitus with hyperosmolar hyperglycemic state (HHS) Weakness (Acute) JOEL (acute kidney injury) (Acute) Acute dehydration (Acute) Acute hyperkalemia (Acute) HHNC (hyperglycemic hyperosmolar nonketotic coma) (Acute) Medical History Carotid artery disease Neck CTA 08/03/23: Prominent atherosclerotic plaque of the bilateral carotid bulbs results in high-grade stenosis with 90% stenosis on the left and 80% stenosis on the right. Areas of high-grade narrowing within the V2 segment right vertebral artery as above secondary to spondylotic spurring of the spine. Hx of ectopic High cholesterol HTN (hypertension) Diabetes IDDM CKD (chronic kidney disease) Stage 3 Follows with [facility] nephrology Surgical History (Updated 10/23/23 @ 17:11 by Ginger Cool PA-C) History of transcarotid artery revascularization (TCAR) 07/2023 S/P laparotomy for ectopic (unsure if she had a salpingectomy) History of cholecystectomy Family History Mother TIA (transient ischemic attack) FHx: carotid endarterectomy Other No family history of adverse response to anesthesia Social History Smoking Status: Never smoker Second Hand Exposure: No; Do You Dip or Chew Tobacco: No; Hx Alcohol Use: Yes Hx Substance Use: No Preferred Language: Moldovan Communication Ability: Effective Inspector Government Property Required: No Beliefs That Will Affect Care: None Current Living Situation: Alone Current Living Situation Comment: son lives with patient Feels Safe at Home: Yes Assistive Devices: None Allergies Allergies Allergy/AdvReac Type Severity Reaction Status Date / Time No Known Allergies Allergy Verified 08/29/23 05:54 Home Meds Home Medications Medication Instructions Recorded Confirmed amlodipine 2.5 mg tablet 2.5 mg PO QAM 08/03/23 10/23/23 aspirin 81 mg tablet,delayed 81 mg PO QAM 08/03/23 10/23/23 release losartan 25 mg tablet 25 mg PO QAM 08/03/23 10/23/23 atorvastatin 40 mg tablet 40 mg PO QAM 08/08/23 10/23/23 insulin glargine 100 unit/mL (3 7 unit subcut UD 08/08/23 10/23/23 mL) subcutaneous pen (Basaglar KwikPen U-100 Insulin) metformin 500 mg 24 hr 1,000 mg PO .DAILY WITH DINNER 08/08/23 10/23/23 tablet,extended release (gastric retention) clopidogrel 75 mg tablet 75 mg PO DAILY 08/15/23 10/23/23 oxycodone-acetaminophen 5 mg-325 1 tab PO UD PRN pain 10/23/23 10/23/23 mg tablet (Percocet) Previous Rx's Medication Instructions Recorded lancets 33 gauge (OneTouch Delica #100 ea 09/02/21 Lancets) blood sugar diagnostic (OneTouch #100 ea 09/03/21 Verio test strips) lancets 33 gauge (OneTouch Delica #100 ea 09/03/21 Plus Lancet) pen needle, diabetic 32 gauge x #50 ea 09/03/21 5/32" (Pen Needle) Results & Data (ED) Vital Signs Vital Signs - 24 hr 10/23/23 13:30 10/23/23 14:21 Temperature 36.6 C Temperature Source Temporal Artery Scan Pulse Rate 96 H 74 Pulse Rhythm Regular Pulse Strength Normal Respiratory Rate 18 Respiratory Effort / Characteristics Non-Labored Spontaneous Respiratory Depth Normal Respiratory Pattern Regular Blood Pressure 167/82 H Blood Pressure Mean 110 Blood Pressure Position Sitting Pulse Oximetry 99 Oxygen Delivery Method Room Air Sepsis Recent Fever Within 48 Hours No Sepsis New/Unexplained Change in Mental Status No Sepsis Action Taken by Nursing No Action Required Laboratory Data 10/23/23 13:48 10/23/23 13:48 Lab Results 10/23/23 10/23/23 Range/Units 13:48 14:59 WBC 8.93 (4.8-10.8) K/ul RBC 4.13 L (4.20-5.40) M/uL Hgb 11.8 L (12.0-16.0) g/dl Hct 37.2 (37.0-47.0) % MCV 90.1 (80.0-100.0) fL MCH 28.6 (25.0-34.0) pg MCHC 31.7 L (32.0-36.0) g/dL RDW Std Deviation 43.8 (36.4-46.3) fL RDW Coeff of Bernie 13.2 (11.5-14.5) % Plt Count 377 (130-400) K/uL MPV 10.4 (9.4-12.4) fL Immature Gran % (Auto) 0.3 % Neut % (Auto) 59.3 % Lymph % (Auto) 25.0 % [place] % (Auto) 8.2 % Eos % (Auto) 6.4 % Baso % (Auto) 0.8 % Neut # (Auto) 5.30 (1.40-6.50) K/uL Lymph # (Auto) 2.23 (1.20-3.40) K/uL [place] # (Auto) 0.73 H (0.11-0.59) K/uL Eos # (Auto) 0.57 H (0.00-0.50) K/uL Baso # (Auto) 0.07 (0.00-0.20) K/uL Immature Gran # (Auto) 0.03 (0.01-0.20) K/uL PT 10.8 (9.0-12.0) Seconds INR 1.0 (0.9-1.1) APTT 29 (21-31) Seconds PTT Ratio 1.1 Sodium 134 L (136-145) mmol/L Potassium 3.8 (3.5-5.1) mmol/L Chloride 99 (98-107) mmol/L Carbon Dioxide 26 (21-32) mmol/L Anion Gap 9 (3-11) BUN 20 (6-23) mg/dl Creatinine 1.46 H (0.6-1.2) mg/dl Est Cr Clr Drug Dosing 36.9 ml/min Est GFR ( Amer) 41.0 ml/min Est GFR (Non-Af Amer) 35.3 ml/min BUN/Creatinine Ratio 13.7 (10-20) Glucose 130 H (70-99(Fasting)) mg/dl Calcium 9.8 (8.6-10.3) mg/dl Magnesium 1.9 (1.7-2.4) mg/dl Total Bilirubin 0.4 (0.2-1.0) mg/dl AST 18 (13-39) U/L ALT 12 (7-52) U/L Alkaline Phosphatase 107 H (34-104) U/L Troponin I High Sens 5.3 (0-14) pg/ml Total Protein 8.4 H (6.0-8.3) gm/dl Albumin 4.6 (3.4-5.0) gm/dl Globulin 3.8 (2.5-4.0) gm/dl Albumin/Globulin Ratio 1.2 (0.9-2) Blood Type O Positive Antibody Screen NEGATIVE Administered Medications Sodium Chloride (Nss) 1,000 mls @ 80 mls/hr IV .[id number] FAREED Stop: 10/24/23 10:41 Last Admin: 10/23/23 22:54 Dose: 80 mls/hr Documented By: ARIANNA Insulin Aspart (Insulin Aspart Per Unit Charge) 0 units SC Q6 FAREED Stop: 11/22/23 22:44 Last Admin: 10/23/23 23:22 Dose: Not Given Documented By: ARIANNA Co-signed By: KG Discontinued Medications Sodium Chloride (Nss) 1,000 mls @ 50 mls/hr IV .Q20H FAREED Stop: 11/22/23 13:44 Last Infusion: 10/23/23 23:05 Dose: 0 mls/hr Documented By: Admin: 10/23/23 19:55 Dose: 50 mls/hr Documented By: ARIANNA Sodium Chloride (Nss) 1,000 mls @ 999 mls/hr IV .Q1H1M ONE Stop: 10/23/23 14:33 Last Infusion: 10/23/23 16:18 Dose: Infused Documented By: Admin: 10/23/23 15:14 Dose: 999 mls/hr Documented By: NAJMA Ioversol (Optiray 320 125ml) 118 ml IV ONCE ONE Stop: 10/23/23 15:19 Last Admin: 10/23/23 15:18 Dose: 118 ml Documented By: BILLY Lorazepam (Lorazepam 0.5 Mg Tab) 0.5 mg PO NOW STA Stop: 10/23/23 19:48 Last Admin: 10/23/23 19:54 Dose: 0.5 mg Documented By: ARIANNA Imaging Data Radiologist's Impression: Chest X-Ray 10/23/23 13:33 XR chest 1V portable CLINICAL HISTORY: neuro deficit, acute stroke suspected TECHNIQUE: Single frontal radiograph of the chest was obtained. Comparison: Comparison is made to chest radiograph 08/15/2023 FINDINGS: No lines and tubes are seen. Calcified aortic knob is seen. The lungs are clear. No evidence of pleural effusion or pneumothorax. IMPRESSION: No acute chest disease. ACT 112: Negative or not required by law. Electronically signed by: Rjoas Huerta M.D. 10/23/2023 2:[address] 10/23/23 13:33 CT SCAN OF THE BRAIN WITHOUT IV CONTRAST CLINICAL HISTORY: Neurological deficit. Stroke like symptoms. COMPARISON STUDY: CT of the brain dated 08/29/2021. TECHNIQUE: Unenhanced axial CT scan of the brain is performed from the vertex to the skull base. A dose lowering technique was utilized adhering to the principles of ALARA. FINDINGS: Brain parenchyma: There is age-related involutional change noting moderate subcortical and periventricular microangiopathic disease. There is no hemorrhage, mass effect, or evidence of acute territorial ischemia by CT criteria. Yu-white matter differentiation is preserved. No extra-axial fluid collection is seen. Ventricles, sulci, cisterns: Prominent secondary to involutional change. Intracranial vasculature: There is atherosclerotic calcification of the cavernous carotid and vertebral arteries. Calvarium: Unremarkable. Sinuses and mastoids: The visualized paranasal sinuses are clear. The mastoid air cells are well pneumatized. Orbits: The bony orbits are grossly intact. IMPRESSION: There is no hemorrhage, mass effect, or evidence of acute territorial ischemia by CT criteria. ACT 112: Negative or not required by law. Electronically signed by: Amanuel Lainez M.D. 10/23/2023 3:38 PM Head CTA 10/23/23 13:33 CT angio head w con CLINICAL HISTORY: neuro deficit, acute stroke suspected TECHNIQUE: CT angiography of the head was performed following intravenous administration of iodinated contrast. Coronal and sagittal MIPS were obtained from the axial data set and were submitted for review. Automated dose lowering techniques and/or adjustment according to patient size were utilized for this examination. All measurements were calculated based on NASCET criteria. Comparison: Comparison is made to CT head 10/23/2023 FINDINGS: CTA Head: The anterior and posterior cerebral circulations are patent. origin of the right posterior cerebral artery is seen. IMPRESSION: No occlusion, hemodynamically significant stenosis, aneurysm, dissection, or arteriovenous malformation in the major intracranial arteries. Assessment of stenosis of the internal carotid arteries is based on NASCET criteria. ACT 112: Negative or not required by law. Electronically signed by: Rojas Huerta M.D. 10/23/2023 3:45 PM Neck CTA 10/23/23 13:33 CT ANGIOGRAPHY OF THE NECK WITH CONTRAST CLINICAL HISTORY: neuro deficit, acute stroke suspected COMPARISON STUDY: CTA of the neck August 03, 2023. Technique: CT angiography of the carotid and vertebral arteries was obtained using Optiray and 3D reconstruction on an independent workstation. NASCET criteria was utilized. Automated exposure control was utilized for the study. A dose lowering technique was utilized adhering to the principles of ALARA. CT DOSE: 1381.93 mGy.cm Findings: Mild stenosis at the origin the left vertebral artery is unchanged. Areas of high-grade narrowing of the V2 segment of the right vertebral artery are also unchanged since CT of August 03, 2023. There is no dissection or aneurysm within the neck. Severe stenosis of the proximal right internal carotid artery with 80% narrowing is unchanged since CT of August 03, 2023. Interval left transcarotid artery revascularization is noted. There is approximate 70% residual stenosis of the proximal left internal carotid artery. This is improved since CT of August 03, 2023. No additional stenoses are identified. IMPRESSION: 1. No significant change in severe stenosis of the proximal right internal carotid artery with 80% narrowing since CT of August 03, 2023. 2. Interval left transcarotid artery revascularization. Approximate 70% residual/recurrent stenosis of the proximal left internal carotid artery. ACT 112: Negative or not required by law. Electronically signed by: Eric You M.D. 10/23/2023 3:52 PM Discharge Plan Visit Data Chief Complaint: Neuro Symptoms/Deficit Stated Complaint: R HAND NUMBNESS, R JAW NUMBNESS ED Provider: Karuna Laboy Discharge Problem: Stroke-like symptoms Discharge Instructions Interventions: ED Discharge Assessment Last Done: 10/23/23 22:13
--- NOTE | 2023-10-23 15:40 | CT Scan Report ---
CT SCAN OF THE BRAIN WITHOUT IV CONTRAST CLINICAL HISTORY: Neurological deficit. Stroke like symptoms. COMPARISON STUDY: CT of the brain dated 08/29/2021. TECHNIQUE: Unenhanced axial CT scan of the brain is performed from the vertex to the skull base. A do se lowering technique was utilized adhering to the principles of ALARA. FINDINGS: Brain parenchyma: There is age-related involutional change noting moderate subcortical and periventri cular microangiopathic disease. There is no hemorrhage, mass effect, or evidence of acute territorial ischemia by CT criteria. Yu-white matter differentiation is preserved. No extra-axial fluid collec tion is seen. Ventricles, sulci, cisterns: Prominent secondary to involutional change. Intracranial vasculature: There is atherosclerotic calcification of the cavernous carotid and vertebr al arteries. Calvarium: Unremarkable. Sinuses and mastoids: The visualized paranasal sinuses are clear. The mastoid air cells are well pneu matized. Orbits: The bony orbits are grossly intact. IMPRESSION: There is no hemorrhage, mass effect, or evidence of acute territorial ischemia by CT francisco sherwood. ACT 112: Negative or not required by law. Electronically signed by: Amanuel Lainez M.D. 10/23/2023 3:38 PM
--- NOTE | 2023-10-23 15:47 | CT Scan Report ---
CT angio head w con CLINICAL HISTORY: neuro deficit, acute stroke suspected TECHNIQUE: CT angiography of the head was performed following intravenous administration of iodinated contrast. Coronal and sagittal MIPS were obtained from the axial data set and were submitted for rev iew. Automated dose lowering techniques and/or adjustment according to patient size were utilized fo r this examination. All measurements were calculated based on NASCET criteria. Comparison: Comparison is made to CT head 10/23/2023 FINDINGS: CTA Head: The anterior and posterior cerebral circulations are patent. origin of the right pos terior cerebral artery is seen. IMPRESSION: No occlusion, hemodynamically significant stenosis, aneurysm, dissection, or arteriovenous malformati on in the major intracranial arteries. Assessment of stenosis of the internal carotid arteries is based on NASCET criteria. ACT 112: Negative or not required by law. Electronically signed by: Rojas Huerta M.D. 10/23/2023 3:45 PM
--- NOTE | 2023-10-23 15:54 | CT Scan Report ---
CT ANGIOGRAPHY OF THE NECK WITH CONTRAST CLINICAL HISTORY: neuro deficit, acute stroke suspected COMPARISON STUDY: CTA of the neck August 03, 2023. Technique: CT angiography of the carotid and vertebral arteries was obtained using Optiray and 3D rec onstruction on an independent workstation. NASCET criteria was utilized. Automated exposure control was utilized for the study. A dose lowering technique was utilized adhering to the principles of ALA RA. CT DOSE: 1381.93 mGy.cm Findings: Mild stenosis at the origin the left vertebral artery is unchanged. Areas of high-grade hyacinth rowing of the V2 segment of the right vertebral artery are also unchanged since CT of August 03, 2023. There is no dissection or aneurysm within the neck. Severe stenosis of the proximal right internal ca rotid artery with 80% narrowing is unchanged since CT of August 03, 2023. Interval left transcarotid ar jorge revascularization is noted. There is approximate 70% residual stenosis of the proximal left inte rnal carotid artery. This is improved since CT of August 03, 2023. No additional stenoses are identifie d. IMPRESSION: 1. No significant change in severe stenosis of the proximal right internal carotid artery with 80% na rrowing since CT of August 03, 2023. 2. Interval left transcarotid artery revascularization. Approximate 70% residual/recurrent stenosis o f the proximal left internal carotid artery. ACT 112: Negative or not required by law. Electronically signed by: Eric You M.D. 10/23/2023 3:52 PM
--- NOTE | 2023-10-23 16:44 | History & Physical Report ---
Date of Service October 23, 2023 Assessment & Plan (1) Stroke-like symptoms: (2) Bilateral carotid artery stenosis: (3) Diabetes: (4) HTN (hypertension): (5) High cholesterol: (6) CKD (chronic kidney disease): Plan This is a 72-year-old female who has significant past medical history of T2DM insulin-dependent, CKD stage III, HTN, HLD, history of recurrent UTI, bilateral carotid artery stenosis with history of transcarotid artery revascularization on the left who presents to ED secondary to episodes of right hand paresthesias and dysarthria. Stroke like sx - likely TIA as sx have resolved lasting < 10 minutes for all episodes Known B/L BEATRICE admit to PCU Stroke workup with MRI brain, echocardiogram and neurology consult CTA N: Interval left transcarotid artery revascularization. Approximate 70% residual/recurrent stenosis of the proximal left internal carotid artery. No significant change in severe stenosis of the proximal right internal carotid artery with 80% narrowing since CT of August 03, 2023. Head CT and Head CTA unremarkable ED provider discussed with Vascular Surgery, Dr. Haddad, who will evaluate the patient and likely need re- intervention to her previous L TCAR Pt is scheduled for R TCAR in the future PT/OT/ST Lipid panel and A1c In a.m. continue ASA, plavix for now Bilateral BEATRICE s/p L TCAR 07/2023, will consult vascular for re-evaluation of abnormal CTA N continue asa, statin, plavix T2DM controlled, on lantus, metformin as OP will hold metformin for now novolog correction coverage only, NPO after midnight consider re adding lantus based on blood glucose, home dose is 7 units in a.m. CKD-3 baseline cr 1.4 bun/cr stable will give gentle fluid x 1 L due to use of IV contrast HTN hold amlodipine, losartan for now given stroke work up to allow for permissive HTN DVT ppx: SCDS, ASA, Plavix Dispo: admit to PCU for stroke w/u FULL CODE PCP: Dr. Mcintyre A total of 76 minutes was spent coordinating, documenting, and providing care for this patient excluding time spent in the performance of separately billed services. This included personally viewing all current laboratories and imaging studies, medication reconciliation, outpatient chart review, and discussion with specialists. Pt was seen and examined in collaboration with Dr. 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 Primary Care Provider: Torie Mcintyre MD This is a 72-year-old female who has significant past medical history of T2DM insulin-dependent, CKD stage III, HTN, HLD, history of recurrent UTI, bilateral carotid artery stenosis with history of transcarotid artery revascularization on the left who presents to ED secondary to episodes of right hand paresthesias and dysarthria. Of significance patient follows with [facility] vascular surgery and underwent left transcarotid artery revascularization on August 29, 2023. she presents to ED today after experiencing episode of right hand paresthesias, tongue numbness and dysarthria. This is the third episode of its kind. Each episode lasted 5-10 min. She initially experienced this on and attributed it to the heat. She again experienced an episode last week and then today. Today's episode was witnessed by family and she was encouraged to come to ED for further evaluation. Son is at bedside today who helps elicit history. Today at 12 p.m. she started having slurred speech. This was witnessed by youngest son. Sx lasted about 8 minutes. She was at her Sons house and decided to drive home. On the way home she talked to her other son who encouraged her to come to ED. She presented her. She is right hand dominant. She felt like she was able to understand everything, but speech was slurred. She knew something was wrong. Prior to her TCAR surgery she has never had similar sx. She denies any recent illness, f/c/s, chest pain, sob, uri sx, n/v/d, abd pain. She states her PCP noted a bruit on bilateral carotids in June which is how they found her stenosis. She has a FH with mother who has TIA. Allergies Allergy/AdvReac Type Severity Reaction Status Date / Time No Known Allergies Allergy Verified 08/29/23 05:54 Home Medications Medication Instructions Recorded Confirmed Type lancets 33 gauge (OneTouch Delica #100 ea 09/02/21 08/03/23 Rx Lancets) blood sugar diagnostic (OneTouch #100 ea 09/03/21 Rx Verio test strips) lancets 33 gauge (OneTouch Delica #100 ea 09/03/21 Rx Plus Lancet) pen needle, diabetic 32 gauge x #50 ea 09/03/21 08/03/23 Rx 5/32" (Pen Needle) amlodipine 2.5 mg tablet 2.5 mg PO QAM 08/03/23 10/23/23 History aspirin 81 mg tablet,delayed 81 mg PO QAM 08/03/23 10/23/23 History release losartan 25 mg tablet 25 mg PO QAM 08/03/23 10/23/23 History atorvastatin 40 mg tablet 40 mg PO QAM 08/08/23 10/23/23 History insulin glargine 100 unit/mL (3 7 unit subcut UD 08/08/23 10/23/23 History mL) subcutaneous pen (Basaglar KwikPen U-100 Insulin) metformin 500 mg 24 hr 1,000 mg PO .DAILY WITH DINNER 08/08/23 10/23/23 History tablet,extended release (gastric retention) clopidogrel 75 mg tablet 75 mg PO DAILY 08/15/23 10/23/23 History oxycodone-acetaminophen 5 mg-325 1 tab PO UD PRN pain 10/23/23 10/23/23 History mg tablet (Percocet) Past Med/Surg History Problem List Stroke-like symptoms (Acute) Bilateral carotid artery stenosis Pseudohyponatremia Tobacco abuse Hypertension Type 2 diabetes mellitus with hyperosmolar hyperglycemic state (HHS) Weakness (Acute) JOEL (acute kidney injury) (Acute) Acute dehydration (Acute) Acute hyperkalemia (Acute) HHNC (hyperglycemic hyperosmolar nonketotic coma) (Acute) Medical History Carotid artery disease Neck CTA 08/03/23: Prominent atherosclerotic plaque of the bilateral carotid bulbs results in high-grade stenosis with 90% stenosis on the left and 80% stenosis on the right. Areas of high-grade narrowing within the V2 segment right vertebral artery as above secondary to spondylotic spurring of the spine. Hx of ectopic High cholesterol HTN (hypertension) Diabetes IDDM CKD (chronic kidney disease) Stage 3 Follows with [facility] nephrology Surgical History (Updated 10/23/23 @ 17:11 by Ginger Cool PA-C) History of transcarotid artery revascularization (TCAR) 07/2023 S/P laparotomy for ectopic (unsure if she had a salpingectomy) History of cholecystectomy Family History Mother TIA (transient ischemic attack) FHx: carotid endarterectomy Other No family history of adverse response to anesthesia Social History Smoking Status: Never smoker Second Hand Exposure: No; Do You Dip or Chew Tobacco: No; Hx Alcohol Use: Yes Hx Substance Use: No Preferred Language: Guinean Communication Ability: Effective Alterations Sewer Required: No Beliefs That Will Affect Care: None Current Living Situation: Alone Current Living Situation Comment: son lives with patient Feels Safe at Home: Yes Assistive Devices: None Review of Systems Review of Systems: All systems reviewed & are unremarkable except as noted in HPI & below Physical Exam Physical Exam: please refer to Dr. Morris addendum for physical exam findings. Results & Data Results & Data Vital Signs (Past 12 Hours) Vital Signs Temp Pulse Resp BP Pulse Ox O2 Del Method 10/23/23 14:21 74 10/23/23 13:30 36.6 C 96 H 18 167/82 H 99 Room Air Diagnostic Findings Chest X-Ray 10/23/23 13:33 XR chest 1V portable CLINICAL HISTORY: neuro deficit, acute stroke suspected TECHNIQUE: Single frontal radiograph of the chest was obtained. Comparison: Comparison is made to chest radiograph 08/15/2023 FINDINGS: No lines and tubes are seen. Calcified aortic knob is seen. The lungs are clear. No evidence of pleural effusion or pneumothorax. IMPRESSION: No acute chest disease. ACT 112: Negative or not required by law. Electronically signed by: Rojas Huerta M.D. 10/23/2023 2:[address] 10/23/23 13:33 CT SCAN OF THE BRAIN WITHOUT IV CONTRAST CLINICAL HISTORY: Neurological deficit. Stroke like symptoms. COMPARISON STUDY: CT of the brain dated 08/29/2021. TECHNIQUE: Unenhanced axial CT scan of the brain is performed from the vertex to the skull base. A dose lowering technique was utilized adhering to the principles of ALARA. FINDINGS: Brain parenchyma: There is age-related involutional change noting moderate subcortical and periventricular microangiopathic disease. There is no hemorrha ge, mass effect, or evidence of acute territorial ischemia by CT criteria. Yu- white matter differentiation is preserved. No extra-axial fluid collection is seen. Ventricles, sulci, cisterns: Prominent secondary to involutional change. Intracranial vasculature: There is atherosclerotic calcification of the cavernous carotid and vertebral arteries. Calvarium: Unremarkable. Sinuses and mastoids: The visualized paranasal sinuses are clear. The mastoid air cells are well pneumatized. Orbits: The bony orbits are grossly intact. IMPRESSION: There is no hemorrhage, mass effect, or evidence of acute territorial ischemia by CT criteria. ACT 112: Negative or not required by law. Electronically signed by: Amanuel Lainez M.D. 10/23/2023 3:38 PM Head CTA 10/23/23 13:33 CT angio head w con CLINICAL HISTORY: neuro deficit, acute stroke suspected TECHNIQUE: CT angiography of the head was performed following intravenous administration of iodinated contrast. Coronal and sagittal MIPS were obtained from the axial data set and were submitted for review. Automated dose lowering techniques and/or adjustment according to patient size were utilized for this examination. All measurements were calculated based on NASCET criteria. Comparison: Comparison is made to CT head 10/23/2023 FINDINGS: CTA Head: The anterior and posterior cerebral circulations are patent. origin of the right posterior cerebral artery is seen. IMPRESSION: No occlusion, hemodynamically significant stenosis, aneurysm, dissection, or arteriovenous malformation in the major intracranial arteries. Assessment of stenosis of the internal carotid arteries is based on NASCET criteria. ACT 112: Negative or not required by law. Electronically signed by: Rojas Huerta M.D. 10/23/2023 3:45 PM Neck CTA 10/23/23 13:33 CT ANGIOGRAPHY OF THE NECK WITH CONTRAST CLINICAL HISTORY: neuro deficit, acute stroke suspected COMPARISON STUDY: CTA of the neck August 03, 2023. Technique: CT angiography of the carotid and vertebral arteries was obtained using Optiray and 3D reconstruction on an independent workstation. NASCET criteria was utilized. Automated exposure control was utilized for the study. A dose lowering technique was utilized adhering to the principles of ALARA. CT DOSE: 1381.93 mGy.cm Findings: Mild stenosis at the origin the left vertebral artery is unchanged. Areas of high-grade narrowing of the V2 segment of the right vertebral artery are also unchanged since CT of August 03, 2023. There is no dissection or aneurysm within the neck. Severe stenosis of the proximal right internal carotid artery with 80% narrowing is unchanged since CT of August 03, 2023. Interval left transcarotid artery revascularization is noted. There is approximate 70% residual stenosis of the proximal left internal carotid artery. This is improved since CT of August 03, 2023. No additional stenoses are identified. IMPRESSION: 1. No significant change in severe stenosis of the proximal right internal carotid artery with 80% narrowing since CT of August 03, 2023. 2. Interval left transcarotid artery revascularization. Approximate 70% residual/recurrent stenosis of the proximal left internal carotid artery. ACT 112: Negative or not required by law. Electronically signed by: Eric You M.D. 10/23/2023 3:52 PM Medications Administered Medication List Discontinued Medications Sodium Chloride (Nss) 1,000 mls @ 999 mls/hr IV .Q1H1M ONE Stop: 10/23/23 14:33 Last Infusion: 10/23/23 16:18 Dose: Infused Documented By: Admin: 10/23/23 15:14 Dose: 999 mls/hr Documented By: NAJMA Ioversol (Optiray 320 125ml) 118 ml IV ONCE ONE Stop: 10/23/23 15:19 Last Admin: 10/23/23 15:18 Dose: 118 ml Documented By: BILLY ECG Additional Comments: I have independently reviewed and interpreted patient's admitting EKG which revealed: 83, NSR, qtc 418, no st or t wave change COVID-19 Results Results COVID-19 Adm Lab Results: RBC 4.13 M/uL (4.20-5.40) L 10/23/23 WBC 8.93 K/ul (4.8-10.8) 10/23/23 Hgb 11.8 g/dl (12.0-16.0) L 10/23/23 Hct 37.2 % (37.0-47.0) 10/23/23 Plt Count 377 K/uL (130-400) 10/23/23 Neutrophils (%) (Auto) 59.3 % 10/23/23 Lymphocytes (%) (Auto) 25.0 % 10/23/23 Monocytes # (Auto) 0.73 K/uL (0.11-0.59) H 10/23/23 Eosinophils # (Auto) 0.57 K/uL (0.00-0.50) H 10/23/23 Immature Granulocyte % (Auto) 0.3 % 10/23/23 Neutrophils # (Auto) 5.30 K/uL (1.40-6.50) 10/23/23 Lymphocytes # (Auto) 2.23 K/uL (1.20-3.40) 10/23/23 Monocytes # (Auto) 0.73 K/uL (0.11-0.59) H 10/23/23 Eosinophils # (Auto) 0.57 K/uL (0.00-0.50) H 10/23/23 Basophils # (Auto) 0.07 K/uL (0.00-0.20) 10/23/23 Immature Granulocyte # (Auto) 0.03 K/uL (0.01-0.20) 4 Na 134 mmol/L (136-145) L 10/23/23 K 3.8 mmol/L (3.5-5.1) 10/23/23 Cl 99 mmol/L (98-107) 10/23/23 CO2 26 mmol/L (21-32) 10/23/23 Anion Gap 9 (3-11) 10/23/23 BUN 20 mg/dl (6-23) 10/23/23 Creatinine 1.46 mg/dl (0.6-1.2) H 10/23/23 BUN/Creatinine Ratio 13.7 (10-20) 10/23/23 Glucose Level 130 mg/dl (70-99(Fasting)) H 10/23/23 Ca 9.8 mg/dl (8.6-10.3) 10/23/23 Total Bilirubin 0.4 mg/dl (0.2-1.0) 10/23/23 AST/SGOT 18 U/L (13-39) 10/23/23 ALT/SGPT 12 U/L (7-52) 10/23/23 Alkaline Phosphatase 107 U/L (34-104) H 10/23/23 Total Protein 8.4 gm/dl (6.0-8.3) H 10/23/23 Albumin 4.6 gm/dl (3.4-5.0) 10/23/23 Globulin 3.8 gm/dl (2.5-4.0) 10/23/23 Albumin/Globulin Ratio 1.2 (0.9-2) 10/23/23 PTT 29 Seconds (21-31) 10/23/23 INR 1.0 (0.9-1.1) 10/23/23 Chest X-Ray 10/23/23 Code Status & VTE Plan Code Status FULL CODE VTE Prophylaxis Plan VTE Prophylaxis will be ordered: Yes Supervising Physician Co-Signing Physician Notes Patient was seen and examined with Ginger YE at bedside. Chart reviewed. Case discussed with Ginger YE and agree with the documentation above. In summary, this is a 72 year old female with history of left carotid endarterect kvng in 07/2023 who presented to the ED with slurring of speech today. Had another transient slurring episode and right hand numbness in between on two different occasions. CT head with no stroke, CTA head and neck shows 1. No significant change in severe stenosis of the proximal right internal carotid artery with 80% narrowing since CT of August 03, 2023. Interval left transcarotid artery revascularization. Approximate 70% residual/recurrent stenosis of the proximal left internal carotid artery. ED phsyician spoke with Dr Haddad who recommended admission for MRI brain and he will see in consultation fo need for additional procedures. During our encounter, she was back to her baseline, neurologically intact. Concern for TIA at this point related to her ICA stenosis. She will be admitted for stroke work up, vascular and neuro evaluation. She will be npo overnight and her insulin will be adjusted, and metformin held. Allow permissive HTN. Continue ASA, plavix, statin. Rest as per the note above. On exam- General: Lying comfortably in bed, not in distress, on room air HEENT: EOMI, KASSANDRA, MMM. Carotid bruit Chest: Clear breath sounds bilaterally, no wheezes or crackles CVS: Regular rate and rhythm, normal heart sounds, no murmur Abdomen: Soft, non tender, not distended, normal bowel sounds Neuro: Awake, alert, oriented, conversing well, non focal Extremities: No edema
--- NOTE | 2023-10-23 18:43 | Electrocardiogram Report ---
Test Reason : Blood Pressure : / mmHG Vent. Rate : 083 BPM Atrial Rate : 083 BPM P-R Int : 128 ms QRS Dur : 084 ms QT Int : 356 ms P-R-T Axes : 043 051 042 degrees QTc Int : 418 ms Normal sinus rhythm Nonspecific ST abnormality Abnormal ECG When compared with ECG of 15-AUG-2023 09:13, T wave inversion no longer evident in Lateral leads Confirmed by Kahlil Uriarte ([id number]) on 10/23/2023 6:43:05 PM Referred By: REFERRED SELF Confirmed By:Kahlil Uriarte
[2023-10-23] MEDS: LORazepam 0.5 MG TAB PO STA (19:54)
[2023-10-23] MEDS: SODIUM CHLORIDE 0.9% 1,000 ML IV SCH ×2 (19:55→22:54)
[2023-10-23] MEDS ORDERED: GLUCOSE 10 TAB/TUBE PO PRN (22:12)
[2023-10-23] MEDS ORDERED: POLYETHYLENE (MIRALAX) 17 GM PACK PO PRN (22:12)
[2023-10-23] MEDS ORDERED: ALUMINUM/MAGNESIUM SUSP 30 ML UDC PO PRN (22:12)
[2023-10-23] MEDS ORDERED: MELATONIN 3 MG TAB PO PRN (22:12)
[2023-10-23] MEDS ORDERED: FAMOTIDINE 20 MG TAB PO PRN (22:12)
[2023-10-23] MEDS ORDERED: ONDANSETRON INJ 2 MG/ML 2 ML VIAL IV PRN (22:12)
[2023-10-23] MEDS ORDERED: MAGNESIUM HYDROXIDE SUSP 30 ML UDC PO PRN (22:12)
[2023-10-23] MEDS ORDERED: DEXTROSE 50% 50 ML SYRINGE IV PRN (22:12)
[2023-10-23] MEDS ORDERED: GLUCAGON FOR INJ 1 MG VIAL SQ PRN (22:12)
[2023-10-23] MEDS ORDERED: ACETAMINOPHEN 325 MG TAB PO PRN (22:12)
[2023-10-23] MEDS ORDERED: PHARMACIST DISCHARGE MED REC CONSULT PRN (22:12)
[2023-10-23] MEDS ORDERED: GLUCOSE 40% GEL 15 GM TUBE PO PRN (22:12)
[2023-10-23] MEDS ORDERED: CARBOHYDRATES FOR HYPOGLYCEMIA PO PRN (22:12)
[2023-10-23] MEDS: INSULIN ASPART PER UNIT CHARGE SC SCH (23:22)
--- NOTE | 2023-10-23 23:54 | Magnetic Resonance Report ---
Exam(s): MRI HEAD Without Contrast EXAM: MR Head Without Intravenous Contrast CLINICAL HISTORY: Reason for exam: r/o cva. TECHNIQUE: Magnetic resonance images of the head/brain without intravenous contrast in multiple planes. COMPARISON: Comparison made to prior head CT from October 23, 2023.. FINDINGS: Brain: Mild nonspecific white matter changes. No mass. No hemorrhage. No acute infarct. The flow voids at the base of the brain are intact. There is a dural based soft tissue mass of the torcula measuring 16.2 x 15.8 x 13.5 mm. Ventricles: Unremarkable. No ventriculomegaly. Bones/joints: Unremarkable. No acute fracture. Sinuses: Chronic left ethmoid and frontal sinusitis. No acute sinusitis. Mastoid air cells: Unremarkable as visualized. No mastoid effusion. Orbits: Unremarkable as visualized. IMPRESSION: No evidence of acute intercranial pathology. Mild nonspecific white matter changes. 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 Electronically signed by: Kacy Palma MD 10/23/23 23:54 PM
[2023-10-24 04:13] LABS: Basophils # (auto) 0.07 K/uL (0.00-0.20); Basophils % (auto) 0.8 %; Eosinophils # (auto) 0.63 K/uL (0.00-0.50); Eosinophils % (auto) 7.5 %; Hematocrit (blood only) 34.3 % (37.0-47.0); Immature Granulocytes # (auto) 0.03 K/uL (0.01-0.20); Immature Granulocytes % (auto) 0.4 %; Lymphocytes # (auto) 1.93 K/uL (1.20-3.40); Mean Corpuscular Hemoglobin 28.9 pg (25.0-34.0); Mean Corpuscular Hgb Conc 32.1 g/dL (32.0-36.0); Mean Corpuscular Volume 90.3 fL (80.0-100.0); Mean Platelet Volume 10.3 fL (9.4-12.4); Monocytes # (auto) 0.83 K/uL (0.11-0.59); Monocytes % (auto) 9.9 %; Neutrophils # (auto) 4.91 K/uL (1.40-6.50); Neutrophils % (auto) 58.4 %; Platelet Count 339 K/uL (130-400); RDW Coefficient of Variation 13.2 % (11.5-14.5); RDW Standard Deviation 43.7 fL (36.4-46.3)
[2023-10-24 04:26] LABS: Albumin Globulin Ratio 1.3 (0.9-2); BUN Creatinine Ratio 11.7 (10-20); Bilirubin,Total 0.5 mg/dl (0.2-1.0); Creatinine Clr Calc Pharmacy 39.3 ml/min; Est GFR (African American) 44.2 ml/min; Est GFR (Non-African American) 38.2 ml/min; Globulin 3.1 gm/dl (2.5-4.0); Potassium 4.5 mmol/L (3.5-5.1); Total Protein 7.1 gm/dl (6.0-8.3)
[2023-10-24 07:35] LABS: Estimated Average Glucose 137 mg/dl; Hemoglobin A1C 6.4 % (4.5-5.6)
[2023-10-24] MEDS: CLOPIDOGREL BISULFATE 75 MG TAB PO SCH (08:04)
[2023-10-24] MEDS: ASPIRIN 81 MG ECTAB PO SCH (08:04)
[2023-10-24] MEDS: LOSARTAN POTASSIUM 25 MG TAB PO SCH (08:04)
[2023-10-24] MEDS: ATORVASTATIN 40 MG TAB PO SCH (08:05)
--- NOTE | 2023-10-24 10:18 | Consultation ---
Date of Consultation October 24, 2023 Assessment & Plan (1) Bilateral carotid artery stenosis: This patient has a significant stenosis of the right internal carotid artery and a previously intervened upon left internal carotid artery with a TCAR. She is planned to have a right-sided TCAR done at the end of October. (2) Stenosis of left internal carotid artery: On CT angiogram on this admission it appears that she has approximately 70% narrowing in the midportion of her stent right at the area of plaque. At the time of her TCAR she was postdilated with a 4.5 mm balloon and also predilated with the same size balloon. It appears that she has recoil of the plaque in the midportion of the stent at the origin of the internal carotid artery. I do not appreciate any evidence of clot or dissection of this artery. At this point we recommend that we reballoon the midportion of the stent with either a 5 or 5- 1/2 mm balloon to avoid the recoiling. We will plan on depending on the consult of her neurologist and their recommendations. I have discussed the risks options and benefits of the procedure with the patient. The patient understands the risks options and benefits and agrees to the procedure. Thank you very much for letting us participate in the care of this patient. History of Present Illness Reason for Consultation: Recurrent stenosis of left internal carotid artery Attending Physician: Daniel Daniels MD History of Present Illness This is a 72-year-old female who in July underwent a left TCAR.She was doing well until at which time she was out in the sun and developed a short duration of difficulty speaking.At that time she Thought it was due to the heat. She denies any weakness of her upper or lower extremities at that time. She did sit down and take fluids and felt better.Approximately 1 to 2 weeks prior to this admission she developed a short period of speech difficulty again. This time was associated with feeling of numbness on the dorsal side of her right hand. No weakness of the upper or lower extremities. Still felt the funny feeling on the right side of her face but denies any facial droop.At this admission she developed again at time of difficulty with her speech at which time she came to the emergency room.Again she had no upper or lower extremity weakness complaints. All 3 times her speech recovered in a short period.She does have a known severe stenosis of her right internal carotid artery and is planning a TCAR in the end of October. Allergies Allergy/AdvReac Type Severity Reaction Status Date / Time No Known Allergies Allergy Verified 08/29/23 05:54 Home Medications Medication Instructions Recorded Confirmed Type lancets 33 gauge (OneTouch Delica #100 ea 09/02/21 10/24/23 Rx Lancets) blood sugar diagnostic (OneTouch #100 ea 09/03/21 10/24/23 Rx Verio test strips) lancets 33 gauge (OneTouch Delica #100 ea 09/03/21 10/24/23 Rx Plus Lancet) pen needle, diabetic 32 gauge x #50 ea 09/03/21 10/24/23 Rx 5/32" (Pen Needle) amlodipine 2.5 mg tablet 2.5 mg PO QAM 08/03/23 10/23/23 History aspirin 81 mg tablet,delayed 81 mg PO QAM 08/03/23 10/23/23 History release losartan 25 mg tablet 25 mg PO QAM 08/03/23 10/23/23 History atorvastatin 40 mg tablet 40 mg PO QAM 08/08/23 10/23/23 History insulin glargine 100 unit/mL (3 7 unit subcut UD 08/08/23 10/23/23 History mL) subcutaneous pen (Basaglar KwikPen U-100 Insulin) metformin 500 mg 24 hr 1,000 mg PO .DAILY WITH DINNER 08/08/23 10/23/23 History tablet,extended release (gastric retention) clopidogrel 75 mg tablet 75 mg PO DAILY 08/15/23 10/23/23 History oxycodone-acetaminophen 5 mg-325 1 tab PO UD PRN pain 10/23/23 10/23/23 History mg tablet (Percocet) Patient History Medical History Carotid artery disease Neck CTA 08/03/23: Prominent atherosclerotic plaque of the bilateral carotid bulbs results in high-grade stenosis with 90% stenosis on the left and 80% stenosis on the right. Areas of high-grade narrowing within the V2 segment right vertebral artery as above secondary to spondylotic spurring of the spine. Hx of ectopic High cholesterol HTN (hypertension) Diabetes IDDM CKD (chronic kidney disease) Stage 3 Follows with [facility] nephrology Surgical History History of transcarotid artery revascularization (TCAR) 07/2023 S/P laparotomy for ectopic (unsure if she had a salpingectomy) History of cholecystectomy Family History Mother TIA (transient ischemic attack) FHx: carotid endarterectomy Other No family history of adverse response to anesthesia Social History Smoking Status: Former smoker Second Hand Exposure: No; Do You Dip or Chew Tobacco: No; Tobacco Cessation Education Requested by Patient: No Hx Alcohol Use: Yes Hx Substance Use: No Preferred Language: Turkmen Communication Ability: Effective [employer] Required: No Beliefs That Will Affect Care: None Current Living Situation: Family Current Living Situation Comment: lives w/ son Other Information That Helps Us Care for You: No Feels Safe at Home: Yes Safety Concerns: Feels Safe At This Time Assistive Devices: Glasses Review of Systems Review of Systems: All systems reviewed & are unremarkable except as noted in HPI & below Physical Exam Constitutional: WD/WN, vitals as above Respiratory: normal respiratory effort; no respiratory distress Cardiovascular: RRR, no murmur, no edema Extremities: normal capillary refill; no edema Gastrointestinal (Abdomen): Inspection/Auscultation: abdomen normal to inspection; abdomen not distended Percussion/Palpation: abdomen soft Musculoskeletal: Extremities: strength 5/5 throughout Neurologic: CN's II-XI intact bilaterally and moves all extremities Psychiatric: Orientation: alert and oriented x 3 Results & Data Vital Signs (Past 12 Hours) Vital Signs Temp Pulse Pulse Resp BP Pulse Ox Pulse Ox 10/24/23 07:53 36.7 C 65 18 142/59 H 97 10/24/23 04:30 62 10/24/23 04:30 10/24/23 04:29 36.7 C 66 18 156/61 H 96 10/23/23 23:36 64 10/23/23 22:33 67 18 96 10/23/23 22:17 62 10/23/23 22:12 97 10/23/23 22:12 67 18 98 O2 Del Method O2 Del Method 10/24/23 07:53 Room Air 10/24/23 04:30 10/24/23 04:30 Room Air 10/24/23 04:29 Room Air 10/23/23 23:36 10/23/23 22:33 Room Air 10/23/23 22:17 10/23/23 22:12 Room Air 10/23/23 22:12 Room Air
--- NOTE | 2023-10-24 10:56 | Hospitalist Progress Note ---
Date of Service October 24, 2023 Assessment & Plan (1) Stroke-like symptoms: (2) Bilateral carotid artery stenosis: (3) Diabetes: (4) HTN (hypertension): (5) High cholesterol: (6) CKD (chronic kidney disease): Plan 72-year-old female who has significant past medical history of T2DM insulin- dependent, CKD stage III, HTN, HLD, history of recurrent UTI, bilateral carotid artery stenosis with history of transcarotid artery revascularization on the left who presents to ED secondary to episodes of right hand paresthesias and dysarthria. Stroke like sx - likely TIA as sx have resolved lasting < 10 minutes for all episodes Known B/L BEATRICE admitted to PCU Stroke workup with MRI brain, echocardiogram and neurology consult CTA N: Interval left transcarotid artery revascularization. Approximate 70% residual/recurrent stenosis of the proximal left internal carotid artery. No significant change in severe stenosis of the proximal right internal carotid artery with 80% narrowing since CT of August 03, 2023. Head CT and Head CTA unremarkable ED provider discussed with Vascular Surgery, Dr. Haddad, who will evaluate the patient and likely need re- intervention to her previous L TCAR. Plan for redo procedure on 10/25 Pt is scheduled for R TCAR in the future PT/OT/ST Lipid panel , LDL 64 and current A1c 6.4% continue ASA, plavix for now MR brain - No evidence of acute intercranial pathology. Mild nonspecific white matter changes. 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 Neurology consulted and discussed with via tiger text - recommend MR brain w/ contrast to further eval meningioma Bilateral BEATRICE s/p L TCAR 07/2023, consulted vascular for re-evaluation of abnormal CTA N, plan for redo procedure 10/25 continue asa, statin, plavix T2DM controlled, on lantus, metformin as OP will hold metformin for now novolog correction coverage for now CKD-3 baseline cr 1.4 bun/cr stable gentle fluid prior contrast HTN held amlodipine, losartan initially given stroke work up to allow for permissive HTN - resume amlodipine DVT ppx: SCDS, ASA, Plavix Dispo: PCU FULL CODE PCP: Dr. Mcintyre Admission and Anticipated Discharge Date Admission Date: October 23, 2023 Subjective Pt seen in follow up of TIA symptoms, recent carotid surg. w/ Dr. Haddad Neurology and vasc. surgery consulted - plan for redo procedure w/ Dr. Haddad on 10/25 Per neurology - obtain MR brain w/ contrast Currently pt is laying in bed in NAD, she feels well, all symptoms she had resolved within minutes and did not recur No chest pain, no shortness of breath, no abd. pain Review of Systems Review of Systems: All systems reviewed & are unremarkable except as noted in Subjective Physical Exam Physical Exam: General: Lying comfortably in bed, not in distress, on room air HEENT: EOMI, KASSANDRA, MMM Chest: Clear breath sounds bilaterally, no wheezes or crackles CVS: Regular rate and rhythm, normal heart sounds, no murmur Abdomen: Soft, non tender, not distended, normal bowel sounds Neuro: Awake, alert, oriented, conversing well, no facial asymmetry, moves extremities Extremities: No edema Results & Data Results & Data Vital Signs (Past 12 Hours) Vital Signs Temp Pulse Pulse Resp BP Pulse Ox O2 Del Method 10/24/23 08:00 59 L 10/24/23 07:53 36.7 C 65 18 142/59 H 97 Room Air 10/24/23 04:30 62 10/24/23 04:30 Room Air 10/24/23 04:29 36.7 C 66 18 156/61 H 96 Room Air 10/23/23 23:36 64 Laboratory Results 10/24/23 10/24/23 10/23/23 Range/Units 06:04 03:51 Unknown WBC 8.40 (4.8-10.8) K/ul RBC 3.80 L (4.20-5.40) M/uL Hgb 11.0 L (12.0-16.0) g/dl Hct 34.3 L (37.0-47.0) % MCV 90.3 (80.0-100.0) fL MCH 28.9 (25.0-34.0) pg MCHC 32.1 (32.0-36.0) g/dL RDW Std Deviation 43.7 (36.4-46.3) fL RDW Coeff of Bernie 13.2 (11.5-14.5) % Plt Count 339 (130-400) K/uL MPV 10.3 (9.4-12.4) fL Immature Gran % (Auto) 0.4 % Neut % (Auto) 58.4 % Lymph % (Auto) 23.0 % [place] % (Auto) 9.9 % Eos % (Auto) 7.5 % Baso % (Auto) 0.8 % Neut # (Auto) 4.91 (1.40-6.50) K/uL Lymph # (Auto) 1.93 (1.20-3.40) K/uL [place] # (Auto) 0.83 H (0.11-0.59) K/uL Eos # (Auto) 0.63 H (0.00-0.50) K/uL Baso # (Auto) 0.07 (0.00-0.20) K/uL Immature Gran # (Auto) 0.03 (0.01-0.20) K/uL PT (9.0-12.0) Seconds INR (0.9-1.1) APTT (21-31) Seconds PTT Ratio Sodium 136 (136-145) mmol/L Potassium 4.5 (3.5-5.1) mmol/L Chloride 106 (98-107) mmol/L Carbon Dioxide 25 (21-32) mmol/L Anion Gap 5 (3-11) BUN 16 (6-23) mg/dl Creatinine 1.37 H (0.6-1.2) mg/dl Est Cr Clr Drug Dosing 39.3 ml/min Est GFR ( Amer) 44.2 ml/min Est GFR (Non-Af Amer) 38.2 ml/min BUN/Creatinine Ratio 11.7 (10-20) Glucose 124 H (70-99(Fasting)) mg/dl POC Glucose 129 H (70-99) mg/dl Estimat Average Glucose 137 mg/dl Hemoglobin A1c 6.4 H (4.5-5.6) % Calcium 9.0 (8.6-10.3) mg/dl Magnesium (1.7-2.4) mg/dl Total Bilirubin 0.5 (0.2-1.0) mg/dl AST 15 (13-39) U/L ALT 10 (7-52) U/L Alkaline Phosphatase 86 (34-104) U/L Troponin I High Sens (0-14) pg/ml Total Protein 7.1 (6.0-8.3) gm/dl Albumin 4.0 (3.4-5.0) gm/dl Globulin 3.1 (2.5-4.0) gm/dl Albumin/Globulin Ratio 1.3 (0.9-2) Triglycerides 78 (0-150) mg/dl Cholesterol 121 (0-200) mg/dl LDL Cholesterol, Calc 64 mg/dl VLDL Cholesterol, Calc 16 (0-30) mg/dl HDL Cholesterol 41 mg/dl Cholesterol/HDL Ratio 3.0 (0-5) Urine Color Yellow Urine Appearance Clear (Clear) Urine pH 6.5 (4.5-7.5) Ur Specific [place] 1.007 (1.000-1.030) Urine Protein Negative (Negative) Urine Glucose (UA) Negative (Negative) Urine Ketones Negative (Negative) Urine Blood Negative (Negative) Urine Nitrite Negative (Negative) Urine Bilirubin Negative (Negative) Urine Urobilinogen Negative (Negative) Ur Leukocyte Esterase 2+ H (Negative) Urine WBC (Auto) 6-10 H (0-5) /hpf Urine RBC (Auto) 0-2 (0-2) /hpf U Hyaline Cast (Auto) 0-2 (0-2) /lpf U Epithel Cells (Auto) 3-5 H (0-2) /hpf Urine Bacteria (Auto) None Seen (None Seen) Blood Type Antibody Screen 10/23/23 10/23/23 10/23/23 Range/Units 22:22 14:59 13:48 WBC 8.93 (4.8-10.8) K/ul RBC 4.13 L (4.20-5.40) M/uL Hgb 11.8 L (12.0-16.0) g/dl Hct 37.2 (37.0-47.0) % MCV 90.1 (80.0-100.0) fL MCH 28.6 (25.0-34.0) pg MCHC 31.7 L (32.0-36.0) g/dL RDW Std Deviation 43.8 (36.4-46.3) fL RDW Coeff of Bernie 13.2 (11.5-14.5) % Plt Count 377 (130-400) K/uL MPV 10.4 (9.4-12.4) fL Immature Gran % (Auto) 0.3 % Neut % (Auto) 59.3 % Lymph % (Auto) 25.0 % [place] % (Auto) 8.2 % Eos % (Auto) 6.4 % Baso % (Auto) 0.8 % Neut # (Auto) 5.30 (1.40-6.50) K/uL Lymph # (Auto) 2.23 (1.20-3.40) K/uL [place] # (Auto) 0.73 H (0.11-0.59) K/uL Eos # (Auto) 0.57 H (0.00-0.50) K/uL Baso # (Auto) 0.07 (0.00-0.20) K/uL Immature Gran # (Auto) 0.03 (0.01-0.20) K/uL PT 10.8 (9.0-12.0) Seconds INR 1.0 (0.9-1.1) APTT 29 (21-31) Seconds PTT Ratio 1.1 Sodium 134 L (136-145) mmol/L Potassium 3.8 (3.5-5.1) mmol/L Chloride 99 (98-107) mmol/L Carbon Dioxide 26 (21-32) mmol/L Anion Gap 9 (3-11) BUN 20 (6-23) mg/dl Creatinine 1.46 H (0.6-1.2) mg/dl Est Cr Clr Drug Dosing 36.9 ml/min Est GFR ( Amer) 41.0 ml/min Est GFR (Non-Af Amer) 35.3 ml/min BUN/Creatinine Ratio 13.7 (10-20) Glucose 130 H (70-99(Fasting)) mg/dl POC Glucose 115 H (70-99) mg/dl Estimat Average Glucose mg/dl Hemoglobin A1c (4.5-5.6) % Calcium 9.8 (8.6-10.3) mg/dl Magnesium 1.9 (1.7-2.4) mg/dl Total Bilirubin 0.4 (0.2-1.0) mg/dl AST 18 (13-39) U/L ALT 12 (7-52) U/L Alkaline Phosphatase 107 H (34-104) U/L Troponin I High Sens 5.3 (0-14) pg/ml Total Protein 8.4 H (6.0-8.3) gm/dl Albumin 4.6 (3.4-5.0) gm/dl Globulin 3.8 (2.5-4.0) gm/dl Albumin/Globulin Ratio 1.2 (0.9-2) Triglycerides (0-150) mg/dl Cholesterol (0-200) mg/dl LDL Cholesterol, Calc mg/dl VLDL Cholesterol, Calc (0-30) mg/dl HDL Cholesterol mg/dl Cholesterol/HDL Ratio (0-5) Urine Color Urine Appearance (Clear) Urine pH (4.5-7.5) Ur Specific [place] (1.000-1.030) Urine Protein (Negative) Urine Glucose (UA) (Negative) Urine Ketones (Negative) Urine Blood (Negative) Urine Nitrite (Negative) Urine Bilirubin (Negative) Urine Urobilinogen (Negative) Ur Leukocyte Esterase (Negative) Urine WBC (Auto) (0-5) /hpf Urine RBC (Auto) (0-2) /hpf U Hyaline Cast (Auto) (0-2) /lpf U Epithel Cells (Auto) (0-2) /hpf Urine Bacteria (Auto) (None Seen) Blood Type O Positive Antibody Screen NEGATIVE Medications Administered Current Inpatient Medications Acetaminophen (Acetaminophen 325 Mg Tab) 650 mg PO Q4H PRN PRN Reason: Pain or Fever Stop: 11/22/23 22:11 Al Hydrox/Mg Hydrox/Simethicone (Aluminum/Magnesium Susp 30 Ml Udc) 15 ml PO Q4H PRN PRN Reason: Dyspepsia Stop: 11/22/23 22:11 Aspirin (Aspirin 81 Mg Ectab) 81 mg PO QAM [facility] Stop: 11/23/23 08:59 Last Admin: 10/24/23 08:04 Dose: 81 mg Atorvastatin Calcium (Atorvastatin 40 Mg Tab) 40 mg PO QAM [facility] Stop: 11/23/23 08:59 Last Admin: 10/24/23 08:05 Dose: 40 mg Clopidogrel Bisulfate (Clopidogrel Bisulfate 75 Mg Tab) 75 mg PO DAILY [facility] Stop: 11/23/23 08:59 Last Admin: 10/24/23 08:04 Dose: 75 mg Dextrose (Dextrose 50% 50 Ml Syringe) 25 - 50 ml IV UD PRN; Protocol PRN Reason: Hypoglycemia Protocol Stop: 11/22/23 22:11 Famotidine (Famotidine 20 Mg Tab) 20 mg PO DAILY PRN PRN Reason: Heartburn Stop: 11/22/23 22:11 Glucagon (Glucagon For Inj 1 Mg Vial) 1 mg SQ UD PRN; Protocol PRN Reason: Hypoglycemia Protocol Stop: 11/22/23 22:11 Glucose (Glucose 40% Gel 15 Gm Tube) 15 - 30 gm PO UD PRN; Protocol PRN Reason: Hypoglycemia Protocol Stop: 11/22/23 22:11 Glucose (Glucose 10 Tab/Tube) 4 - 8 tab PO UD PRN; Protocol PRN Reason: Hypoglycemia Treatment Stop: 11/22/23 22:11 Insulin Aspart (Insulin Aspart Per Unit Charge) 0 units SC Q6 FAREED Stop: 11/22/23 22:44 Last Admin: 10/24/23 06:09 Dose: Not Given Losartan Potassium (Losartan Potassium 25 Mg Tab) 25 mg PO QAM [facility] Stop: 11/23/23 08:59 Last Admin: 10/24/23 08:04 Dose: 25 mg Magnesium Hydroxide (Magnesium Hydroxide Susp 30 Ml Udc) 30 ml PO Q12H PRN PRN Reason: Constipation Stop: 11/22/23 22:11 Melatonin (Melatonin 3 Mg Tab) 6 mg PO HS PRN PRN Reason: Sleep Stop: 11/22/23 22:11 Miscellaneous (Carbohydrates For Hypoglycemia ) 15 - 30 gm PO UD PRN PRN Reason: Hypoglycemia Protocol Stop: 11/22/23 22:11 Miscellaneous Information (Pharmacist Discharge Med Rec Consult) 1 each N/A UD PRN PRN Reason: Consult Stop: 11/22/23 22:11 Ondansetron HCl (Ondansetron Inj 2 Mg/Ml 2 Ml Vial) 4 mg IV Q6H PRN PRN Reason: Nausea Stop: 11/22/23 22:11 Polyethylene Glycol (Polyethylene (Miralax) 17 Gm Pack) 17 gm PO DAILY PRN PRN Reason: Constipation Stop: 11/22/23 22:11
--- NOTE | 2023-10-24 12:56 | Neurology Consultation ---
Date of Consultation October 24, 2023 Assessment & Plan (1) Stroke-like symptoms: Recommend continued work up to include the following: MRI brain with contrast to evaluate mass type torcula lesion Echocardiogram as part of complete stroke workup Continue frequent neurological assessments Obtain stat CT brain without contrast for any acute neurological decline Continue to monitor/control blood pressure & blood glucose Continue to monitor telemetry closely Recommend ZioPatch at DC if no evidence of arrhythmia during inpatient monitoring Continue to monitor renal and hepatic function, keep euvolemic Metabolic workup should include hgbA1c, fasting lipids, homocysteine, TSH, D Dimer, RPR, urinalysis Recommend continued DAPT Recommend high dose statin therapy indefinitely if tolerated Ok from neurology perspective for VTE prophylaxis PT/OT/SLT to eval and treat (2) Bilateral carotid artery stenosis: See above Agree with Vas Surgery plans Continue DAPT (3) Stenosis of left internal carotid artery: See above Agree with Vasc Surgery plans Continue DAPT Telehealth Consultation Telehealth Information Telehealth Information: I performed this visit using a real-time telehealth connection between my location and the patients location ([facility]). After connecting through interactive tele-video, patient was identified by name and d ate of and/or wristband check.Patient (or authorized healthcare service center representative) was informed that this was a telemedicine visit and it was being conducted confidentially over secure lines. My office door was closed and no one else was present in the room with me.Patient (or authorized healthcare service center representative) provided consent to proceed with the visit, expressed an understanding of privacy and security of the telemedicine visit, and gave permission to have a hospital service center representative in the room in order to assist with the visit and to conduct portions of the visit, as needed. I informed the patient (or authorized healthcare service center representative) that I reviewed their record and presented the opportunity for them to ask any questions regarding the visit today. The patient agreed to participate. History of Present Illness Reason for Consultation: Stroke Like Symptoms/TIA Attending Physician: Daniel Daniels MD History of Present Illness 72yo female with hx of DM, HTN, CKD hyperlipidemia, carotid stenosis presented with dysarthria and reported paresthesia of the dorsal aspect of her right hand and reported sm,all area of paresthesia on right face and tip of tongue. Fortunately symptoms resolved. Of note she has undergone Left ICA TCAR at end of July 2023 with intervention on MAYO planned for the end of October 2023. She also notably reports that she has had similar episodes involving Vascular surgery has been consulted and is planning repeat angioplasty of Right ICA this week following her presentation yesterday. She has undergone CTA head and neck revealing no overt occlusion or dissection. MRI brain is unrevealing for evidence of acute ischemic stroke. 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 I have performed televideo consultation. She is alert & oriented; able to answer all questions appropriately, name objects on televideo monitor, repeat phrases and perform complex/embedded commands without deficit. Neurological exam is non lateralizing/nonfocal in terms of motor strength and coordination. NIHSS= Allergies Allergy/AdvReac Type Severity Reaction Status Date / Time No Known Allergies Allergy Verified 08/29/23 05:54 Home Medications Medication Instructions Recorded Confirmed Type lancets 33 gauge (OneTouch Delica #100 ea 09/02/21 10/24/23 Rx Lancets) blood sugar diagnostic (OneTouch #100 ea 09/03/21 10/24/23 Rx Verio test strips) lancets 33 gauge (OneTouch Delica #100 ea 09/03/21 10/24/23 Rx Plus Lancet) pen needle, diabetic 32 gauge x #50 ea 09/03/21 10/24/23 Rx 5/32" (Pen Needle) amlodipine 2.5 mg tablet 2.5 mg PO QAM 08/03/23 10/23/23 History aspirin 81 mg tablet,delayed 81 mg PO QAM 08/03/23 10/23/23 History release losartan 25 mg tablet 25 mg PO QAM 08/03/23 10/23/23 History atorvastatin 40 mg tablet 40 mg PO QAM 08/08/23 10/23/23 History insulin glargine 100 unit/mL (3 7 unit subcut UD 08/08/23 10/23/23 History mL) subcutaneous pen (Basaglar KwikPen U-100 Insulin) metformin 500 mg 24 hr 1,000 mg PO .DAILY WITH DINNER 08/08/23 10/23/23 History tablet,extended release (gastric retention) clopidogrel 75 mg tablet 75 mg PO DAILY 08/15/23 10/23/23 History oxycodone-acetaminophen 5 mg-325 1 tab PO UD PRN pain 10/23/23 10/23/23 History mg tablet (Percocet) Patient History Medical History Carotid artery disease Neck CTA 08/03/23: Prominent atherosclerotic plaque of the bilateral carotid bulbs results in high-grade stenosis with 90% stenosis on the left and 80% stenosis on the right. Areas of high-grade narrowing within the V2 segment right vertebral artery as above secondary to spondylotic spurring of the spine. Hx of ectopic High cholesterol HTN (hypertension) Diabetes IDDM CKD (chronic kidney disease) Stage 3 Follows with [facility] nephrology Surgical History History of transcarotid artery revascularization (TCAR) 07/2023 S/P laparotomy for ectopic (unsure if she had a salpingectomy) History of cholecystectomy Family History Mother TIA (transient ischemic attack) FHx: carotid endarterectomy Other No family history of adverse response to anesthesia Social History Smoking Status: Former smoker Second Hand Exposure: No; Do You Dip or Chew Tobacco: No; Tobacco Cessation Education Requested by Patient: No Hx Alcohol Use: Yes Hx Substance Use: No Preferred Language: Hong Konger Communication Ability: Effective 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 Oriented to person, place, and time. Fluency naming repetition and comprehension appear grossly intact. Affect remains appropriate. CN testing: I: Denies changes in ability to smell II:Reports no changes in visual acuity III/IV/: No evidence of gaze preference, hippus, nystagmus or roving eye movements V: Facial sensation reportedly grossly intact to light touch bilaterally VII: Facial movements appear without evidence of asymmetry VIII: Hearing appears grossly intact to loud voice bilaterally IX/X: Palate appears to elevate symmetrically XI: Shoulder shrug appears symmetric/ grossly intact bilaterally XII: Tongue protrudes midline without evidence of biting Motor exam: Strength appears grossly intact/symmetric in all extremities Sensory: Sensation is reportedly grossly intact throughout Coordination: Finger to nose and heel to narvaez were intact. No apparent evidence of dysmetria or dysdiadochokinesia Reflexes: Deferred Gait: Deferred Results & Data Vital Signs (Past 12 Hours) Vital Signs Temp Pulse Pulse Resp BP Pulse Ox O2 Del Method 10/24/23 11:13 36.7 C 67 18 144/52 H 97 Room Air 10/24/23 08:00 59 L 10/24/23 07:53 36.7 C 65 18 142/59 H 97 Room Air 10/24/23 04:30 62 10/24/23 04:30 Room Air 10/24/23 04:29 36.7 C 66 18 156/61 H 96 Room Air Laboratory Results Abnormal lab results 10/23/23 10/24/23 10/24/23 Range/Units 22:22 03:51 06:04 RBC 3.80 L (4.20-5.40) M/uL Hgb 11.0 L (12.0-16.0) g/dl Hct 34.3 L (37.0-47.0) % [place] # (Auto) 0.83 H (0.11-0.59) K/uL Eos # (Auto) 0.63 H (0.00-0.50) K/uL Creatinine 1.37 H (0.6-1.2) mg/dl Glucose 124 H (70-99(Fasting)) mg/dl POC Glucose 115 H 129 H (70-99) mg/dl Hemoglobin A1c 6.4 H (4.5-5.6) % 10/24/23 Range/Units 11:12 RBC (4.20-5.40) M/uL Hgb (12.0-16.0) g/dl Hct (37.0-47.0) % [place] # (Auto) (0.11-0.59) K/uL Eos # (Auto) (0.00-0.50) K/uL Creatinine (0.6-1.2) mg/dl Glucose (70-99(Fasting)) mg/dl POC Glucose 122 H (70-99) mg/dl Hemoglobin A1c (4.5-5.6) % Diagnostic Findings Head CT 10/23/23 13:33 CT SCAN OF THE BRAIN WITHOUT IV CONTRAST CLINICAL HISTORY: Neurological deficit. Stroke like symptoms. COMPARISON STUDY: CT of the brain dated 08/29/2021. TECHNIQUE: Unenhanced axial CT scan of the brain is performed from the vertex to the skull base. A dose lowering technique was utilized adhering to the principles of ALARA. FINDINGS: Brain parenchyma: There is age-related involutional change noting moderate subcortical and periventricular microangiopathic disease. There is no hemorrhage, mass effect, or evidence of acute territorial ischemia by CT criteria. Yu-white matter differentiation is preserved. No extra-axial fluid collection is seen. Ventricles, sulci, cisterns: Prominent secondary to involutional change. Intracranial vasculature: There is atherosclerotic calcification of the cavernous carotid and vertebral arteries. Calvarium: Unremarkable. Sinuses and mastoids: The visualized paranasal sinuses are clear. The mastoid air cells are well pneumatized. Orbits: The bony orbits are grossly intact. IMPRESSION: There is no hemorrhage, mass effect, or evidence of acute territorial ischemia by CT criteria. ACT 112: Negative or not required by law. Electronically signed by: Amanuel Lainez M.D. 10/23/2023 3:38 PM Head CTA 10/23/23 13:33 CT angio head w con CLINICAL HISTORY: neuro deficit, acute stroke suspected TECHNIQUE: CT angiography of the head was performed following intravenous administration of iodinated contrast. Coronal and sagittal MIPS were obtained from the axial data set and were submitted for review. Automated dose lowering techniques and/or adjustment according to patient size were utilized for this examination. All measurements were calculated based on NASCET criteria. Comparison: Comparison is made to CT head 10/23/2023 FINDINGS: CTA Head: The anterior and posterior cerebral circulations are patent. origin of the right posterior cerebral artery is seen. IMPRESSION: No occlusion, hemodynamically significant stenosis, aneurysm, dissection, or arteriovenous malformation in the major intracranial arteries. Assessment of stenosis of the internal carotid arteries is based on NASCET criteria. ACT 112: Negative or not required by law. Electronically signed by: Rojas Huerta M.D. 10/23/2023 3:45 PM Neck CTA 10/23/23 13:33 CT ANGIOGRAPHY OF THE NECK WITH CONTRAST CLINICAL HISTORY: neuro deficit, acute stroke suspected COMPARISON STUDY: CTA of the neck August 03, 2023. Technique: CT angiography of the carotid and vertebral arteries was obtained using Optiray and 3D reconstruction on an independent workstation. NASCET criteria was utilized. Automated exposure control was utilized for the study. A dose lowering technique was utilized adhering to the principles of ALARA. CT DOSE: 1381.93 mGy.cm Findings: Mild stenosis at the origin the left vertebral artery is unchanged. Areas of high-grade narrowing of the V2 segment of the right vertebral artery are also unchanged since CT of August 03, 2023. There is no dissection or aneurysm within the neck. Severe stenosis of the proximal right internal carotid artery with 80% narrowing is unchanged since CT of August 03, 2023. Interval left transcarotid artery revascularization is noted. There is approximate 70% residual stenosis of the proximal left internal carotid artery. This is improved since CT of August 03, 2023. No additional stenoses are identified. IMPRESSION: 1. No significant change in severe stenosis of the proximal right internal carotid artery with 80% narrowing since CT of August 03, 2023. 2. Interval left transcarotid artery revascularization. Approximate 70% residual/recurrent stenosis of the proximal left internal carotid artery. ACT 112: Negative or not required by law. Electronically signed by: Eric You M.D. 10/23/2023 3:52 PM Brain MRI 10/23/23 18:27 Exam(s): MRI HEAD Without Contrast EXAM: MR Head Without Intravenous Contrast CLINICAL HISTORY: Reason for exam: r/o cva. TECHNIQUE: Magnetic resonance images of the head/brain without intravenous contrast in multiple planes. COMPARISON: Comparison made to prior head CT from October 23, 2023.. FINDINGS: Brain: Mild nonspecific white matter changes. No mass. No hemorrhage. No acute infarct. The flow voids at the base of the brain are intact. There is a dural based soft tissue mass of the torcula measuring 16.2 x 15.8 x 13.5 mm. Ventricles: Unremarkable. No ventriculomegaly. Bones/joints: Unremarkable. No acute fracture. Sinuses: Chronic left ethmoid and frontal sinusitis. No acute sinusitis. Mastoid air cells: Unremarkable as visualized. No mastoid effusion. Orbits: Unremarkable as visualized. IMPRESSION: No evidence of acute intercranial pathology. Mild nonspecific white matter changes. 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 Electronically signed by: Kacy Palma MD 10/23/23 23:54 PM Medications Administered Home Medications Medication Instructions Recorded Confirmed Last Taken lancets 33 gauge (OneTouch Delica #100 ea 09/02/21 10/24/23 Unknown Lancets) blood sugar diagnostic (OneTouch #100 ea 09/03/21 10/24/23 Unknown Verio test strips) lancets 33 gauge (OneTouch Delica #100 ea 09/03/21 10/24/23 Unknown Plus Lancet) pen needle, diabetic 32 gauge x #50 ea 09/03/21 10/24/23 Unknown 532" (Pen Needle) amlodipine 2.5 mg tablet 2.5 mg PO QAM 08/03/23 10/23/23 08/29/23 04:45 aspirin 81 mg tablet,delayed 81 mg PO QAM 08/03/23 10/23/23 08/29/23 04:45 release losartan 25 mg tablet 25 mg PO QAM 08/03/23 10/23/23 08/28/23 10:15 atorvastatin 40 mg tablet 40 mg PO QAM 08/08/23 10/23/23 08/29/23 04:45 insulin glargine 100 unit/mL (3 7 unit subcut UD 08/08/23 10/23/23 08/28/23 10:15 mL) subcutaneous pen (Basaglar KwikPen U-100 Insulin) metformin 500 mg 24 hr 1,000 mg PO .DAILY WITH DINNER 08/08/23 10/23/23 08/28/23 18:00 tablet,extended release (gastric retention) clopidogrel 75 mg tablet 75 mg PO DAILY 08/15/23 10/23/23 08/29/23 04:45 oxycodone-acetaminophen 5 mg-325 1 tab PO UD PRN pain 10/23/23 10/23/23 Unknown mg tablet (Percocet) Active Medications Generic Name Dose Route Start Last Admin Trade Name Freq PRN Reason Stop Dose Admin Aspirin 81 mg 10/24/23 09:00 10/24/23 08:04 Aspirin 81 Mg Ectab PO 11/23/23 08:59 81 mg QAM FAREED Administration Atorvastatin Calcium 40 mg 10/24/23 09:00 10/24/23 08:05 Atorvastatin 40 Mg Tab PO 11/23/23 08:59 40 mg QAM FAREED Administration Clopidogrel Bisulfate 75 mg 10/24/23 09:00 10/24/23 08:04 Clopidogrel Bisulfate 75 Mg Tab PO 11/23/23 08:59 75 mg DAILY FAREED Administration Insulin Aspart 0 units 10/23/23 22:45 10/24/23 12:37 Insulin Aspart Per Unit Charge SC 11/22/23 22:44 Not Given Q6 FAREED Losartan Potassium 25 mg 10/24/23 09:00 10/24/23 08:04 Losartan Potassium 25 Mg Tab PO 11/23/23 08:59 25 mg QAM FAREED Administration
--- NOTE | 2023-10-24 15:25 | Communication Note ---
Date of Service: October 24, 2023 NIHSS=0 at time of Neuro exam
[2023-10-24] MEDS ORDERED: LORazepam 0.5 MG TAB PO STA (17:45)
[2023-10-24] MEDS: INSULIN ASPART PER UNIT CHARGE SC SCH (18:29)
[2023-10-24] MEDS: amLODIPine BESYLATE 5 MG TAB PO SCH (19:56)
[2023-10-24] MEDS: LORazepam 0.5 MG TAB PO PRN (22:34)
[2023-10-24] MEDS: GADOBUTROL 65ML VIAL IV ONE (23:14)
--- NOTE | 2023-10-25 02:09 | Magnetic Resonance Report ---
Exam(s): MRI HEAD W/WO Contrast IV Amt: 7.5mL Gadavist given IV EXAM: MR Head Without and With Intravenous Contrast CLINICAL HISTORY: Reason for exam: meningioma. TECHNIQUE: Magnetic resonance images of the head/brain without and with intravenous contrast in multiple planes. CONTRAST: Patient received 7.5mL Gadavist given IV of IV contrast COMPARISON: Comparison made to prior brain MRI from October 23, 2023. FINDINGS: Brain: Mild nonspecific white matter changes. No hemorrhage. No acute infarct. The flow voids of the base of the right are intact. There is a brightly enhancing dural based soft tissue mass at the torcula, likely representing a meningioma, measuring 18.2 x 16.8 x 14.1 mm.. Ventricles: Unremarkable. No ventriculomegaly. Bones/joints: Unremarkable. No acute fracture. Sinuses: Chronic left ethmoid and frontal sinusitis. No acute sinusitis. Mastoid air cells: Unremarkable as visualized. No mastoid effusion. Orbits: Unremarkable as visualized. IMPRESSION: No evidence of acute intracranial pathology. There is a dural based brightly enhancing soft tissue mass at the torcula measuring 18.2 x 16.8 x 14.1 mm consistent with a meningioma. Electronically signed by: Kacy Palma MD 10/25/23 02:08 AM
[2023-10-25 09:24] LABS: Hematocrit (blood only) 35.1 % (37.0-47.0); Hemoglobin 11.1 g/dl (12.0-16.0); Mean Corpuscular Hemoglobin 28.5 pg (25.0-34.0); Mean Corpuscular Hgb Conc 31.6 g/dL (32.0-36.0); Mean Corpuscular Volume 90.2 fL (80.0-100.0); Mean Platelet Volume 10.8 fL (9.4-12.4); Platelet Count 339 K/uL (130-400); RDW Coefficient of Variation 13.3 % (11.5-14.5); Red Blood Count 3.89 M/uL (4.20-5.40); White Blood Count 9.11 K/ul (4.8-10.8)
[2023-10-25 09:25] LABS: BUN Creatinine Ratio 10.2 (10-20); Calcium 9.3 mg/dl (8.6-10.3); Creatinine Clr Calc Pharmacy 36.4 ml/min; Est GFR (African American) 40.6 ml/min; Est GFR (Non-African American) 35.1 ml/min; Magnesium 1.9 mg/dl (1.7-2.4); Potassium 4.5 mmol/L (3.5-5.1)
--- NOTE | 2023-10-25 10:52 | Communication Note ---
Date of Service: October 25, 2023 EMR reviewed MRI brain with contrast reviewed Agree with continued therapies Await vascular procedure Dispo per primary/hospitalist team Recommend continued outpatient followup with adult neurology/continued surveillance of torcula meningioma
[2023-10-25 11:00] LABS: Basophils # (auto) 0.07 K/uL (0.00-0.20); Basophils % (auto) 0.8 %; Eosinophils # (auto) 0.63 K/uL (0.00-0.50); Eosinophils % (auto) 6.8 %; Immature Granulocytes # (auto) 0.03 K/uL (0.01-0.20); Immature Granulocytes % (auto) 0.3 %; Lymphocytes # (auto) 1.53 K/uL (1.20-3.40); Lymphocytes % (auto) 16.6 %; Monocytes # (auto) 0.73 K/uL (0.11-0.59); Monocytes % (auto) 7.9 %; Neutrophils # (auto) 6.23 K/uL (1.40-6.50); Neutrophils % (auto) 67.6 %
--- NOTE | 2023-10-25 11:27 | Pharmacy Report ---
- Date of Service October 25, 2023 - Pharmacy CVA/TIA Medication Review Medications to Prevent Stroke handout has been added to the patients discharge packet. Antiplatelet(s) * ASA 81 mg * clopidogrel 75 mg daily Cholesterol * High intensity statin: atorvastatin 40 mg daily DVT Prophylaxis * SCD knee Therapeutic Anticoagulation * No history of Afib/Aflutter noted Type 2 Diabetes * Patient has T2DM, but per Dr. Phoenix, a diabetes medication with proven CVD benefit will be deferred to their outpatient provider due to familiarity with risks/benefits of such therapies. "Medications to prevent stroke" handout has already been added to the patient's discharge packet, which instructs the patient to follow up with their outpatient provider to evaluate which diabetes medication with proven CVD benefit is best for them
--- NOTE | 2023-10-25 15:03 | Hospitalist Progress Note ---
Date of Service October 25, 2023 Assessment & Plan (1) Stroke-like symptoms: (2) Bilateral carotid artery stenosis: (3) Diabetes: (4) HTN (hypertension): (5) High cholesterol: (6) CKD (chronic kidney disease): Plan per previous hospitalist notes with addendum: 72-year-old female who has significant past medical history of T2DM insulin- dependent, CKD stage III, HTN, HLD, history of recurrent UTI, bilateral carotid artery stenosis with history of transcarotid artery revascularization on the left who presents to ED secondary to episodes of right hand paresthesias and dysarthria. Stroke like sx - likely TIA as sx have resolved lasting < 10 minutes for all episodes Known B/L BEATRICE admitted to PCU Stroke workup with MRI brain, echocardiogram and neurology consult CTA N: Interval left transcarotid artery revascularization. Approximate 70% residual/recurrent stenosis of the proximal left internal carotid artery. No significant change in severe stenosis of the proximal right internal carotid artery with 80% narrowing since CT of August 03, 2023. Head CT and Head CTA unremarkable ED provider discussed with Vascular Surgery, Dr. Haddad, who will evaluate the patient and likely need re- intervention to her previous L TCAR. Plan for redo procedure on 10/25 Pt is scheduled for R TCAR in the future PT/OT/ST Lipid panel , LDL 64 and current A1c 6.4% continue ASA, plavix for now MR brain - No evidence of acute intercranial pathology. Mild nonspecific white matter changes. 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 Neurology consulted and discussed with via tiger text - recommend MR brain w/ contrast to further eval meningioma 10/24 No new neurologic symptoms Plan for left ICA vascular intervention tomorrow Continue aspirin, Plavix, atorvastatin Meningioma There is a dural based brightly enhancing soft tissue mass at the torcula measuring 18.2 x 16.8 x 14.1 mm consistent with a meningioma. Close outpatient follow Bilateral BEATRICE s/p L TCAR 07/2023, consulted vascular for re-evaluation of abnormal CTA N, plan for redo procedure 10/25 continue asa, statin, plavix T2DM controlled, on lantus, metformin as OP will hold metformin for now novolog correction coverage for now CKD-3 baseline cr 1.4 bun/cr stable gentle fluid prior contrast HTN held amlodipine, losartan initially given stroke work up to allow for permissive HTN - resume amlodipine DVT ppx: SCDS, ASA, Plavix Dispo: Anticipate discharge to home medically stable Most likely on Monday FULL CODE PCP: Dr. Mcintyre Admission and Anticipated Discharge Date Admission Date: October 23, 2023 Subjective Follow-up for stroke symptoms, etc. Seen resting in bed comfortable, not in distress In good spirits Very pleasant States she feels fine overall, back to her baseline Dysarthria, right hand paresthesias resolved No other new neurologic symptoms as per patient Review of Systems Review of Systems: all noted and negative except for above Physical Exam Physical Exam: General- oriented x 3, not in distress, speaks in sentences with no effort or accessory muscle use Eyes- anicteric Neck- no JVD Lungs- clear breath sounds bilaterally, no rales/wheezes Heart- normal rate, regular rhythm; no murmurs Abdomen- normal bowel sounds, nondistended, soft, nontender Extremities- no pretibial edema, no calf tenderness Neuro- alert, oriented x 3; no gross focal neurologic deficits Skin- warm & dry Results & Data Results & Data Vital Signs (Past 12 Hours) Vital Signs Temp Pulse Pulse Resp BP Pulse Ox O2 Del Method 10/25/23 14:18 62 10/25/23 11:48 36.9 C 70 17 123/56 L 97 Room Air 10/25/23 08:00 65 10/25/23 08:00 36.6 C 76 18 129/53 L 95 Room Air 10/25/23 03:10 36.9 C 64 22 155/82 H 96 Room Air all noted and reviewed including below
[2023-10-25] MEDS ORDERED: Heparin IV Adult Wt-Based Standard *NO* INITIAL Bolus Protocol IV STA (15:14)
[2023-10-25] MEDS ORDERED: Heparin IV Adult Wt-Based Standard *NO* INITIAL Bolus Protocol IV SCH (15:45)
[2023-10-25] MEDS: HEPARIN SODIUM/DEXTROSE 25,000 UNITS/500 ML BAG IV SCH (16:53)
[2023-10-25 23:43] LABS: ANTI-Xa, UFH(UnfractionatedHep 0.56 IU/ml (0.3-0.7)
[2023-10-26 07:29] LABS: ANTI-Xa, UFH(UnfractionatedHep 0.85 IU/ml (0.3-0.7)
--- NOTE | 2023-10-26 08:21 | History & Physical Bridge Note ---
Date of Service October 26, 2023 History & Physical Bridge Note Patient for redo tcar today. I have discussed the risks options and benefits of the procedure with the patient. The patient understands the risks options and benefits and agrees to the procedure. I have examined the patient, reviewed the History & Physical and in the interval since the performance of the History & Physical I have noted the following changes of clinical significance: no changes noted
--- NOTE | 2023-10-26 09:34 | Anesthesiology Consultation ---
Date of Service October 26, 2023 Assessment & Plan (1) Encounter for pre-operative examination: Chart Review Chart Review: Acceptable Risk for Surgery History Surgery Operation Date: 10/26/23 13:00 Proposed Procedures p Re-do Left Transcarotid Artery Revascularization - Ramakrishna Haddad MD Height/Weight Height: 5 ft 7 in Weight: 76.6 kg Allergies Allergy/AdvReac Type Severity Reaction Status Date / Time No Known Allergies Allergy Verified 08/29/23 05:54 Medications Home Medications Medication Instructions Recorded Confirmed Last Taken lancets 33 gauge (OneTouch Delica #100 ea 09/02/21 10/24/23 Unknown Lancets) blood sugar diagnostic (OneTouch #100 ea 09/03/21 10/24/23 Unknown Verio test strips) lancets 33 gauge (OneTouch Delica #100 ea 09/03/21 10/24/23 Unknown Plus Lancet) pen needle, diabetic 32 gauge x #50 ea 09/03/21 10/24/23 Unknown 5/32" (Pen Needle) amlodipine 2.5 mg tablet 2.5 mg PO QAM 08/03/23 10/23/23 08/29/23 04:45 aspirin 81 mg tablet,delayed 81 mg PO QAM 08/03/23 10/23/23 08/29/23 04:45 release losartan 25 mg tablet 25 mg PO QAM 08/03/23 10/23/23 08/28/23 10:15 atorvastatin 40 mg tablet 40 mg PO QAM 08/08/23 10/23/23 08/29/23 04:45 insulin glargine 100 unit/mL (3 7 unit subcut UD 08/08/23 10/23/23 08/28/23 10:15 mL) subcutaneous pen (Basaglar KwikPen U-100 Insulin) metformin 500 mg 24 hr 1,000 mg PO .DAILY WITH DINNER 08/08/23 10/23/23 08/28/23 18:00 tablet,extended release (gastric retention) clopidogrel 75 mg tablet 75 mg PO DAILY 08/15/23 10/23/23 08/29/23 04:45 oxycodone-acetaminophen 5 mg-325 1 tab PO UD PRN pain 10/23/23 10/23/23 Unknown mg tablet (Percocet) Active Medications Generic Name Dose Route Start Last Admin Trade Name Freq PRN Reason Stop Dose Admin Amlodipine Besylate 2.5 mg 10/24/23 18:45 10/26/23 09:03 Amlodipine Besylate 5 Mg Tab PO 11/23/23 18:44 2.5 mg QAM FAREED Administration Aspirin 81 mg 10/24/23 09:00 10/25/23 09:07 Aspirin 81 Mg Ectab PO 11/23/23 08:59 81 mg QAM FAREED Administration Atorvastatin Calcium 40 mg 10/24/23 09:00 10/26/23 08:10 Atorvastatin 40 Mg Tab PO 11/23/23 08:59 40 mg QAM FAREED Administration Clopidogrel Bisulfate 75 mg 10/24/23 09:00 10/25/23 09:07 Clopidogrel Bisulfate 75 Mg Tab PO 11/23/23 08:59 75 mg DAILY FAREED Administration Heparin Sodium/Dextrose 25,000 units in 500 mls @ 21 mls/hr 10/25/23 16:45 10/26/23 08:29 Heparin Sodium/Dextrose IV 11/24/23 16:44 1,050 units/hr .[id number] FAREED 21 mls/hr Titration Protocol 1,050 UNITS/HR Insulin Aspart 0 units 10/24/23 17:30 10/26/23 08:11 Insulin Aspart Per Unit Charge SC 11/23/23 17:29 Not Given ACHS FAREED Losartan Potassium 25 mg 10/24/23 09:00 10/26/23 08:10 Losartan Potassium 25 Mg Tab PO 11/23/23 08:59 25 mg QAM FAREED Administration Past Medical History Medical History (Updated 10/26/23 @ 09:32 by Miguel Ángel Maldonado MD) Pseudohyponatremia Type 2 diabetes mellitus with hyperosmolar hyperglycemic state (HHS) Carotid artery disease Hx of ectopic High cholesterol HTN (hypertension) CKD (chronic kidney disease) Stage [address] [facility] Fifi pandey nephrology Past Family History Family History Mother TIA (transient ischemic attack) FHx: carotid endarterectomy Other No family history of adverse response to anesthesia Past Surgical History Surgical History History of transcarotid artery revascularization (TCAR) 07/2023 S/P laparotomy for ectopic (unsure if she had a salpingectomy) History of cholecystectomy Social History Smoking Status: Former smoker tobacco type: cigarettes Do You Dip or Chew Tobacco: No Hx Alcohol Use: Yes alcohol intake frequency: holidays/special occasions only Hx Substance Use: No substance use type: does not use Physical Exam Vital Signs Last Vital Signs Temp 36.5 C 10/26/23 07:55 Pulse 73 10/26/23 07:55 Resp 19 10/26/23 07:55 BP 188/79 H 10/26/23 07:55 Pulse Ox 92 10/26/23 07:55 O2 Del Method Room Air 10/26/23 07:55 Testing Laboratory Results 10/25/23 08:14 10/25/23 08:14 PT 10.8 Seconds (9.0-12.0) 10/23/23 13:48 INR 1.0 (0.9-1.1) 10/23/23 13:48 APTT 29 Seconds (21-31) 10/23/23 13:48 Hemoglobin A1c 6.4 % (4.5-5.6) H 10/24/23 03:51 Urine Color Yellow 10/23/23 Unknown Urine Appearance Clear (Clear) 10/23/23 Unknown Urine pH 6.5 (4.5-7.5) 10/23/23 Unknown Ur Specific [place] 1.007 (1.000-1.030) 10/23/23 Unknown Urine Protein Negative (Negative) 10/23/23 Unknown Urine Glucose (UA) Negative (Negative) 10/23/23 Unknown Urine Ketones Negative (Negative) 10/23/23 Unknown Urine Nitrite Negative (Negative) 10/23/23 Unknown Ur Leukocyte Esterase 2+ (Negative) H 10/23/23 Unknown Urine WBC (Auto) 6-10 /hpf (0-5) H 10/23/23 Unknown Urine RBC (Auto) 0-2 /hpf (0-2) 10/23/23 Unknown U Hyaline Cast (Auto) 0-2 /lpf (0-2) 10/23/23 Unknown U Epithel Cells (Auto) 3-5 /hpf (0-2) H 10/23/23 Unknown Urine Bacteria (Auto) None Seen (None Seen) 10/23/23 Unknown Blood Type O Positive 10/25/23 08:13 Antibody Screen NEGATIVE 10/25/23 08:13 10/26/23 10/25/23 07:16 23:49 POC Glucose 143 H 132 H Electrocardiogram Date: 10/23/23 Findings: + NSR @ (83) and + NSST changes Echocardiogram Date: 10/24/23 EF: 55-60% Valvular Disease: + no significant valvular disease no interatrial shunt seen
[2023-10-26] MEDS ORDERED: ATROPINE SULFATE 0.1 MG/ML 10ML SYR IV PRN (12:28)
[2023-10-26] MEDS ORDERED: fentaNYL citrate PF 100 MCG/2 ML VIAL IV PRN (12:28)
[2023-10-26] MEDS ORDERED: PHENYLEPHRINE 100MCG/ML 5ML SYR IV PRN (12:28)
[2023-10-26] MEDS ORDERED: ePHEDrine sulfate 50 MG/ML AMP IV PRN (12:28)
[2023-10-26] MEDS ORDERED: ONDANSETRON INJ 2 MG/ML 2 ML VIAL IV PRN (12:28)
[2023-10-26] MEDS: LACTATED RINGER'S 1,000 ML IV SCH ×2 (12:34→16:39)
[2023-10-26] MEDS ORDERED: Nursing to Pharmacy Communication SCH (12:45)
[2023-10-26] MEDS ORDERED: PROPOFOL IV EMULSION 10 MG/ML 20 ML VIAL IV ONE (12:48)
[2023-10-26] MEDS ORDERED: DEXAMETHASONE SOD INJ 4 MG/ML VIAL ONE (12:48)
[2023-10-26] MEDS ORDERED: LIDOCAINE 2% 2 ML VIAL/AMP(20MG/ML) INFIL ONE (12:48)
[2023-10-26] MEDS ORDERED: ONDANSETRON INJ 2 MG/ML 2 ML VIAL ONE (12:48)
[2023-10-26] MEDS ORDERED: MIDAZOLAM HCL 1 MG/ML 2ML VIAL ONE (12:49)
[2023-10-26] MEDS ORDERED: fentaNYL citrate PF 100 MCG/2 ML VIAL ONE ×2 (12:49→13:42)
[2023-10-26] MEDS: ceFAZolin 2000MG 2,000 MG/15 ML SYR IV SCH ×2 (13:12→20:41)
[2023-10-26] MEDS ORDERED: SUGAMMADEX SODIUM 200 MG/2 ML VIAL IV ONE (13:44)
[2023-10-26] MEDS ORDERED: ROCURONIUM BROMIDE 10 MG/ML 5 ML VIAL IV ONE (13:49)
[2023-10-26] MEDS ORDERED: PHENYLEPHRINE HCL 10 MG/ML VIAL ONE (13:49)
[2023-10-26] MEDS ORDERED: ePHEDrine sulfate 50 MG/5 ML SYR ONE (13:49)
[2023-10-26] MEDS ORDERED: HEPARIN SOD (PORCINE) 1000 UNIT/ML ONE (13:49)
[2023-10-26] MEDS ORDERED: LARYING-O-JET KIT (LTA) ONE (13:49)
[2023-10-26] MEDS ORDERED: PHENYLEPHRINE 100MCG/ML 10ML SYR IV ONE (13:49)
[2023-10-26] MEDS ORDERED: GLYCOPYRROLATE 0.2 MG/ML VIAL ONE (13:56)
[2023-10-26] MEDS ORDERED: PROTAMINE SULFATE 10 MG/ML 5 ML VIAL IV ONE (14:37)
[2023-10-26] MEDS: ceFAZolin 330 MG/ML 1 GM VIAL ONE (14:45)
[2023-10-26] MEDS: GELATIN SPONGE SZ 100 ONE (14:46)
[2023-10-26] MEDS: THROMBIN FOR SOLN 20000 UNIT KIT ONE (14:46)
[2023-10-26] MEDS: BUPIVACAINE/EPINEPHRINE 0.5% MPF 1:200,000 30 ML VIAL ONE (14:46)
--- NOTE | 2023-10-26 15:00 | Procedure Note ---
Angiogram Post Procedure Fluoroscopy Time (minutes): 2.7 Radiation (mGy): 18 Contrast: 12 Post Operative Report Pre & Post Diagnosis Operation Date: 10/26/23 13:00 Pre-Op Diagnosis: Re Stenosis of left internal carotid artery Post-Op Diagnosis: Re Stenosis of left internal carotid artery I identified the patient and participated in the time-out.: Yes Procedure Operation Date: 10/26/23 13:00 Actual Procedures p Re-do Left Transcarotid Artery Revascularization(Left), Ultrasound of left common femoral vein - Ramakrishna Haddad MD Surgeon Ramakrishna Haddad MD Floral Decorator none Estimated Blood Loss 20 Findings Consistent with Post-Op Diagnosis Specimens none Anesthesia Type General Complications none Disposition Accompanied Patient To Recovery: No Disposition: Recovery Room Indications This is a 72-year-old female who had a left TCAR done in July of this year. She came to the emergency room after having 3 episodes in the last few weeks of difficulty with speech and a feeling of numbness in her right hand and right side of face for 2 of those episodes. They recovered within minutes. CT angio showed a 70% stenosis of her stent in the midportion in the area of the previous plaque. Redo TCAR was recommended. I have discussed the risks options and benefits of the procedure with the patient. The patient understands the risks options and benefits and agrees to the procedure. Description of Procedure The patient was taken to the operating room and placed in supine position. After general anesthesia was accomplished the groins and left side of the neck and chest were prepped and draped in a sterile manner. Timeout was performed and the patient was identified. A transverse incision was made just above the clavicle between the heads of the sternocleidomastoid. This was carried down to where the common carotid artery was identified. It was isolated and slung with an umbilical tape. A 5-0 U-stitch was placed. She was given 7000units of heparin at that time. Ultrasound was then used to localize the left common femoral vein. The vein was patent and compressed easily. Under ultrasound guidance the left common femoral vein was punctured and the venous sheath was inserted. This was aspirated and flushed with heparinized saline. An ACT at that time was 317. Using micropuncture technique the common carotid artery was punctured. The micro sheath was inserted to 3 cm. Injection was then done showing the bifurcation. There was a significant lesion seen at the mid portion of the previous placed stent in the mid portion on the left side. We then inserted the J-wire left and short of the narrowing in the stent. The micro sheath was removed and the TCAR sheath was inserted in a timely fashion without the footplate. Once it was in place it was sutured to the chest wall and the entrance site of the skin. We then flushed the tubing appropriately. The venous return to was clamped onto the TCAR sheath. It was flushed through and then attached to the venous inflow sheath in the left groin. Sheath was checked for flow. The saline cleared nicely. The common carotid artery was then clamped. Flow reversal was instituted. We inserted a 5 x 25 balloon backloaded on the wire. The wire was passed through the lesion into the petrous portion of the internal carotid. The 5 balloon was then advanced to the lesion. Lesion was then predilated with a 5 mm balloon. Balloon was removed. We then inserted the 8-6 x 30 stent. This was deployed across the lesion without difficulty. The catheter was removed. On plain fluoroscopy there is still a waist seen at the origin in the area of the restenosis. We then inserted a 5.5 x 25 balloon and real ballooned this area. The carotid was allowed to go 2 minutes with flow reversal. Completion angiogram was done at that time which showed a widely patent carotid stent. At that point the common carotid artery was unclamped. The venous return tubing was clamped and removed from the TCAR sheath. The blood was allowed to flow back into the venous system. The sheath was removed from the carotid artery and the U-stitch tied. Heparin was reversed with 25 mg of protamine. Repeat ACT was 140. the sheath was pulled from the groin and pressure was applied. Hemostasis was noted of the puncture site. Wound was irrigated with Ancef solution. Adequate hemostasis was obtained of the wound. Once this was noted the wound was closed in usual fashion using a 3-0 Vicryl suture for the subcutaneous layer and a 4-0 subcuticular Vicryl suture for the skin edges. Dermabond was used for dressing.The patient left the operation room in satisfactory condition and tolerated the procedure well. All needle and sponge counts were correct at the end of the procedure. I attest to the content of the Intraoperative Record and any orders documented therein. Any exceptions are noted below.
--- NOTE | 2023-10-26 15:22 | Anesthesiology Progress Note ---
Date of Service October 26, 2023 Anesthesia Post Procedure Vital Signs Vital Signs: Temp Pulse Pulse Resp BP BP Pulse Ox 10/26/23 12:22 36.4 C L 76 20 149/73 H 178/107 H 98 10/26/23 11:24 36.7 C 70 19 134/75 97 10/26/23 08:00 66 10/26/23 07:55 36.5 C 73 19 188/79 H 92 10/26/23 04:42 61 10/26/23 03:18 36.4 C L 64 17 168/80 H 97 10/25/23 22:30 36.5 C 61 18 145/67 H 96 10/25/23 19:53 36.9 C 61 18 152/71 H 96 O2 Del Method 10/26/23 12:22 Room Air 10/26/23 11:24 Room Air 10/26/23 08:00 10/26/23 07:55 Room Air 10/26/23 04:42 10/26/23 03:18 Room Air 10/25/23 22:30 Room Air 10/25/23 19:53 Room Air Transfer of Care Handoff Completed per policy Notes Mental Status: alert / awake / arousable Patient Amnestic to Procedure: Yes Nausea / Vomiting: adequately controlled Pain: adequately controlled Airway Patency, RR, SpO2: stable & adequate BP & HR: stable & adequate Hydration State: stable & adequate Anesthetic Complications: no major complications apparent
[2023-10-26] MEDS ORDERED: oxyCODONE/ACETAMINOPHEN 5mg/325mg TAB PO PRN (16:09)
[2023-10-26] MEDS ORDERED: PHENYLEPHRINE/NSS 25 MG/250 ML BAG IV PRN (16:09)
[2023-10-26] MEDS ORDERED: STAT IV Infusion **Titration per Protocol STA (16:09)
--- NOTE | 2023-10-26 17:32 | Critical Care Consultation ---
Date of Consultation October 26, 2023 Assessment & Plan (1) Bilateral carotid artery stenosis: Postop day #0 status post left TCAR revision. Incision site appears been dry and intact. Will monitor neurovascular checks closely per vascular surgery recommendations. Radial arterial line in place to monitor hemodynamics closely. Defer antihypertensive regimen to vascular surgeon. Defer antiplatelets and anticoagulant per vascular surgery. (2) Hypertension: Antihypertensive regimen per vascular surgeon. (3) Tobacco abuse: Patient indicates that she quit smoking 2 years ago. Plan ICU service will continue to monitor patient while she remains under ICU status. Thank you for the consult and please call questions History of Present Illness Reason for Consultation: Left TCAR revision Attending Physician: Ciro Phoenix MD History of Present Illness 72-year-old female who originally underwent a left TCAR in July and had restenosis of her carotid stent. She was having numbness and tingling was admitted to the hospitalist service. She is status post left TCAR revision and doing quite well at this time. Hemodynamically stable and off vasopressors. Denies any numbness, weakness, tingling, chest pain or headache. Allergies Allergy/AdvReac Type Severity Reaction Status Date / Time No Known Allergies Allergy Verified 08/29/23 05:54 Home Medications Medication Instructions Recorded Confirmed Type lancets 33 gauge (OneTouch Delica #100 ea 09/02/21 10/24/23 Rx Lancets) blood sugar diagnostic (OneTouch #100 ea 09/03/21 10/24/23 Rx Verio test strips) lancets 33 gauge (OneTouch Delica #100 ea 09/03/21 10/24/23 Rx Plus Lancet) pen needle, diabetic 32 gauge x #50 ea 09/03/21 10/24/23 Rx 5/32" (Pen Needle) amlodipine 2.5 mg tablet 2.5 mg PO QAM 08/03/23 10/23/23 History aspirin 81 mg tablet,delayed 81 mg PO QAM 08/03/23 10/23/23 History release losartan 25 mg tablet 25 mg PO QAM 08/03/23 10/23/23 History atorvastatin 40 mg tablet 40 mg PO QAM 08/08/23 10/23/23 History insulin glargine 100 unit/mL (3 7 unit subcut UD 08/08/23 10/23/23 History mL) subcutaneous pen (Royceaglar KwikPen U-100 Insulin) metformin 500 mg 24 hr 1,000 mg PO .DAILY WITH DINNER 08/08/23 10/23/23 History tablet,extended release (gastric retention) clopidogrel 75 mg tablet 75 mg PO DAILY 08/15/23 10/23/23 History oxycodone-acetaminophen 5 mg-325 1 tab PO UD PRN pain 10/23/23 10/23/23 History mg tablet (Percocet) Patient History Medical History (Updated 10/26/23 @ 09:32 by Miguel Ángel Maldonado MD) Pseudohyponatremia Type 2 diabetes mellitus with hyperosmolar hyperglycemic state (HHS) Carotid artery disease Hx of ectopic High cholesterol HTN (hypertension) CKD (chronic kidney disease) Stage 3 Follows with [facility] nephrology Surgical History History of transcarotid artery revascularization (TCAR) 07/2023 S/P laparotomy for ectopic (unsure if she had a salpingectomy) History of cholecystectomy Family History Mother TIA (transient ischemic attack) FHx: carotid endarterectomy Other No family history of adverse response to anesthesia Social History Smoking Status: Former smoker Second Hand Exposure: No; Do You Dip or Chew Tobacco: No; Hx Alcohol Use: Yes Hx Substance Use: No Preferred Language: Finnish Communication Ability: Effective [place] Required: No Beliefs That Will Affect Care: None Current Living Situation: Family Current Living Situation Comment: lives w/ son Feels Safe at Home: Yes Assistive Devices: None Review of Systems Review of Systems: All systems reviewed & are unremarkable except as noted in HPI & below Physical Exam Physical Exam: Constitutional: Patient appears to be of their stated age. Patient is in no apparent distress. Patient is well-developed. Eyes: Pupils are equal round and reactive to light. Conjunctivae are normal. Anicteric sclera. Ears nose, mouth and throat: Mallampati class 2. Normal posterior oropharynx. Uvula is midline. Neck: Trachea is midline. Visual inspection is normal. Respiratory: Clear to auscultation bilaterally. No use of accessory muscles. No significant clubbing noted. Cardiovascular: Regular rate and rhythm. No murmurs. No edema. Left TCAR site is nonpulsatile. Dressing intact. No obvious bleeding. Right groin puncture site appears intact without pulsatility. Good distal pulses in the lower extremity Gastrointestinal: Normal bowel sounds, soft, nontender and nondistended. No hepatosplenomegaly noted. Musculoskeletal: No cyanosis. Patient is able to move all extremities. Strength is 5 out of 5 in the upper and lower extremities. Skin: No rashes, warm dry and intact. Neurologic: No obvious focal neurological deficits seen. Psychiatric: Alert and oriented x3 with a euthymic affect. Results & Data Results & Data Vital Signs (Past 12 Hours) Vital Signs Temp Pulse Pulse Resp BP BP BP 10/26/23 16:48 68 18 10/26/23 16:44 10/26/23 16:30 64 18 126/51 L 10/26/23 16:19 36.4 C L 10/26/23 16:14 65 13 109/61 10/26/23 15:50 79 18 117/44 L 10/26/23 15:35 36.4 C L 81 16 112/45 L 10/26/23 15:25 83 16 113/46 L 10/26/23 15:15 89 18 120/49 L 10/26/23 15:08 36 C L 97 H 18 125/50 L 10/26/23 12:22 36.4 C L 76 20 149/73 H 10/26/23 11:24 36.7 C 70 19 10/26/23 08:00 66 10/26/23 07:55 36.5 C 73 19 BP Pulse Ox O2 Del Method O2 Flow Rate 10/26/23 16:48 100 10/26/23 16:44 Nasal Cannula 2 10/26/23 16:30 98 2 10/26/23 16:19 10/26/23 16:14 99 2 10/26/23 15:50 97 Nasal Cannula 2 10/26/23 15:35 94 Room Air 10/26/23 15:25 98 Oxymask 2 10/26/23 15:15 100 Oxymask 4 10/26/23 15:08 100 Oxymask 6 10/26/23 12:22 178/107 H 98 Room Air 10/26/23 11:24 134/75 97 Room Air 10/26/23 08:00 10/26/23 07:55 188/79 H 92 Room Air Coding Level of Care Code 53756 IN/OBS CONSULT LVL 3,45M Diagnoses Bilateral carotid artery stenosis I65.23 Hypertension I10 Tobacco abuse Z72.0
--- NOTE | 2023-10-26 19:32 | Hospitalist Progress Note ---
Date of Service October 26, 2023 Assessment & Plan (1) Stroke-like symptoms: (2) Bilateral carotid artery stenosis: (3) Diabetes: (4) HTN (hypertension): (5) High cholesterol: (6) CKD (chronic kidney disease): Plan per previous hospitalist notes with addendum: 72-year-old female who has significant past medical history of T2DM insulin- dependent, CKD stage III, HTN, HLD, history of recurrent UTI, bilateral carotid artery stenosis with history of transcarotid artery revascularization on the left who presents to ED secondary to episodes of right hand paresthesias and dysarthria. Stroke like sx - likely TIA as sx have resolved lasting < 10 minutes for all episodes Known B/L BEATRICE admitted to PCU Stroke workup with MRI brain, echocardiogram and neurology consult CTA N: Interval left transcarotid artery revascularization. Approximate 70% residual/recurrent stenosis of the proximal left internal carotid artery. No significant change in severe stenosis of the proximal right internal carotid artery with 80% narrowing since CT of August 03, 2023. Head CT and Head CTA unremarkable ED provider discussed with Vascular Surgery, Dr. Haddad, who will evaluate the patient and likely need re- intervention to her previous L TCAR. Plan for redo procedure on 10/25 Pt is scheduled for R TCAR in the future PT/OT/ST Lipid panel , LDL 64 and current A1c 6.4% continue ASA, plavix for now MR brain - No evidence of acute intercranial pathology. Mild nonspecific white matter changes. 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 Neurology consulted and discussed with via tiger text - recommend MR brain w/ contrast to further eval meningioma 10/24 No new neurologic symptoms Plan for left ICA vascular intervention tomorrow Continue aspirin, Plavix, atorvastatin 10/25 No neurologic symptoms Status post TCAR Continue to closely monitor in the ICU Meningioma There is a dural based brightly enhancing soft tissue mass at the torcula measuring 18.2 x 16.8 x 14.1 mm consistent with a meningioma. Close outpatient follow up Bilateral BEATRICE s/p L TCAR 07/2023, consulted vascular for re-evaluation of abnormal CTA N, plan for redo procedure 10/25 continue asa, statin, plavix 10/25 Re-do Left Transcarotid Artery Revascularization(Left), Ultrasound of left common femoral vein - Ramakrishna Haddad MD T2DM controlled, on lantus, metformin as OP will hold metformin for now novolog correction coverage for now CKD-3 baseline cr 1.4 bun/cr stable gentle fluid prior contrast HTN continue Amlodipine, Losartan DVT ppx: SCDS, ASA, Plavix Dispo: Anticipate discharge to home when medically stable, cleared by Vascular Surgery FULL CODE PCP: Dr. Mcintyre Admission and Anticipated Discharge Date Admission Date: October 23, 2023 Subjective Follow-up for stroke symptoms, L ICA stenosis, etc. Seen resting in bed, comfortable, not in distress, good spirits States she feels good overall Denies dizziness, headache, nausea vomiting, chest pain, shortness of breath, palpitations No new neurologic symptoms No other new symptoms Review of Systems Review of Systems: all noted and negative except for above Physical Exam Physical Exam: General- oriented x 3, not in distress, speaks in sentences with no effort or accessory muscle use Eyes- anicteric Neck- Surgical incision site well opposed, no bleeding or discharge, no hematoma no JVD Lungs- clear breath sounds bilaterally, no rales/wheezes Heart- normal rate, regular rhythm; no murmurs Abdomen- normal bowel sounds, nondistended, soft, nontender Extremities- no pretibial edema, no calf tenderness Neuro- alert, oriented x 3; no gross focal neurologic deficits Skin- warm & dry Results & Data Results & Data Vital Signs (Past 12 Hours) Vital Signs Temp Pulse Pulse Resp BP BP BP 10/26/23 18:30 128/51 L 10/26/23 18:27 74 17 10/26/23 18:21 87 21 10/26/23 18:12 61 22 10/26/23 18:00 64 15 10/26/23 18:00 123/49 L 10/26/23 18:00 123/49 L 10/26/23 17:57 66 13 10/26/23 17:41 36.4 C L 68 18 126/51 L 10/26/23 17:33 64 17 10/26/23 17:30 137/52 L 10/26/23 17:27 62 18 10/26/23 17:09 66 17 10/26/23 17:00 121/51 L 10/26/23 16:57 64 19 10/26/23 16:51 62 11 L 10/26/23 16:48 68 18 10/26/23 16:44 10/26/23 16:30 64 18 126/51 L 10/26/23 16:19 36.4 C L 10/26/23 16:14 65 13 109/61 10/26/23 15:50 79 18 117/44 L 10/26/23 15:35 36.4 C L 81 16 112/45 L 10/26/23 15:25 83 16 113/46 L 10/26/23 15:15 89 18 120/49 L 10/26/23 15:08 36 C L 97 H 18 125/50 L 10/26/23 12:22 36.4 C L 76 20 149/73 H 10/26/23 11:24 36.7 C 70 19 10/26/23 08:00 66 10/26/23 07:55 36.5 C 73 19 BP Pulse Ox O2 Del Method O2 Flow Rate 10/26/23 18:30 10/26/23 18:27 99 10/26/23 18:21 99 10/26/23 18:12 99 10/26/23 18:00 97 10/26/23 18:00 10/26/23 18:00 10/26/23 17:57 99 10/26/23 17:41 100 10/26/23 17:33 99 10/26/23 17:30 10/26/23 17:27 99 10/26/23 17:09 99 10/26/23 17:00 10/26/23 16:57 98 10/26/23 16:51 100 10/26/23 16:48 100 10/26/23 16:44 Nasal Cannula 2 10/26/23 16:30 98 2 10/26/23 16:19 10/26/23 16:14 99 2 10/26/23 15:50 97 Nasal Cannula 2 10/26/23 15:35 94 Room Air 10/26/23 15:25 98 Oxymask 2 10/26/23 15:15 100 Oxymask 4 10/26/23 15:08 100 Oxymask 6 10/26/23 12:22 178/107 H 98 Room Air 10/26/23 11:24 134/75 97 Room Air 10/26/23 08:00 10/26/23 07:55 188/79 H 92 Room Air all noted and reviewed including below
[2023-10-27 04:13] LABS: Basophils # (auto) 0.01 K/uL (0.00-0.20); Basophils % (auto) 0.1 %; Hematocrit (blood only) 28.1 % (37.0-47.0); Hemoglobin 9.2 g/dl (12.0-16.0); Immature Granulocytes # (auto) 0.05 K/uL (0.01-0.20); Immature Granulocytes % (auto) 0.4 %; Lymphocytes # (auto) 0.85 K/uL (1.20-3.40); Lymphocytes % (auto) 7.3 %; Mean Corpuscular Hemoglobin 29.1 pg (25.0-34.0); Mean Corpuscular Hgb Conc 32.7 g/dL (32.0-36.0); Mean Corpuscular Volume 88.9 fL (80.0-100.0); Mean Platelet Volume 10.5 fL (9.4-12.4); Monocytes # (auto) 0.54 K/uL (0.11-0.59); Monocytes % (auto) 4.6 %; Neutrophils # (auto) 10.27 K/uL (1.40-6.50); Neutrophils % (auto) 87.6 %; Platelet Count 289 K/uL (130-400); RDW Coefficient of Variation 13.1 % (11.5-14.5); RDW Standard Deviation 42.4 fL (36.4-46.3); Red Blood Count 3.16 M/uL (4.20-5.40); White Blood Count 11.72 K/ul (4.8-10.8)
--- NOTE | 2023-10-27 09:27 | Surgery Progress Note ---
Date of Service October 27, 2023 Assessment & Plan (1) Stenosis of left internal carotid artery: Plan: POD #1 from a redo left tcar. She is doing well without any neuro deficits. She can be d/c'd per her primary service Admission and Anticipated Discharge Date Admission Date: October 23, 2023 Subjective Patient without any complaints. No complaints of neuro deficits Physical Exam Constitutional: WD/WN, vitals as above Neck: trachea midline Respiratory: normal respiratory effort; no respiratory distress Cardiovascular: Rate/Rhythm: regular rate and regular rhythm Musculoskeletal: Extremities: strength 5/5 throughout Skin: + incision (dry and clean) Neurologic: CN's II-XI intact bilaterally and moves all extremities Psychiatric: A+Ox3, euthymic affect Results & Data Vital Signs (Past 12 Hours) Vital Signs Temp Pulse Pulse Resp BP Pulse Ox O2 Del Method 10/27/23 05:55 36.5 C 58 L 16 150/54 H 95 Room Air 10/27/23 05:00 62 18 145/55 H 95 Room Air 10/27/23 04:00 36.5 C 18 155/55 H 98 Room Air 10/27/23 03:00 64 18 132/50 L 97 Room Air 10/27/23 02:00 36.5 C 73 20 142/53 H 97 Room Air 10/27/23 00:45 62 10/27/23 00:42 67 14 128/50 L 92 Room Air 10/27/23 00:00 36.5 C 60 12 118/47 L 95 Room Air 10/26/23 23:00 36.5 C 72 12 132/58 L 98 Room Air
--- NOTE | 2023-10-27 17:53 | Hospitalist Progress Note ---
Date of Service October 27, 2023 Assessment & Plan (1) Stroke-like symptoms: (2) Bilateral carotid artery stenosis: (3) Diabetes: (4) HTN (hypertension): (5) High cholesterol: (6) CKD (chronic kidney disease): Plan per previous hospitalist notes with addendum: 72-year-old female who has significant past medical history of T2DM insulin- dependent, CKD stage III, HTN, HLD, history of recurrent UTI, bilateral carotid artery stenosis with history of transcarotid artery revascularization on the left who presents to ED secondary to episodes of right hand paresthesias and dysarthria. Stroke like sx - likely TIA as sx have resolved lasting < 10 minutes for all episodes Known B/L BEATRICE admitted to PCU Stroke workup with MRI brain, echocardiogram and neurology consult CTA N: Interval left transcarotid artery revascularization. Approximate 70% residual/recurrent stenosis of the proximal left internal carotid artery. No significant change in severe stenosis of the proximal right internal carotid artery with 80% narrowing since CT of August 03, 2023. Head CT and Head CTA unremarkable ED provider discussed with Vascular Surgery, Dr. Haddad, who will evaluate the patient and likely need re- intervention to her previous L TCAR. Plan for redo procedure on 10/25 Pt is scheduled for R TCAR in the future PT/OT/ST Lipid panel , LDL 64 and current A1c 6.4% continue ASA, plavix for now MR brain - No evidence of acute intercranial pathology. Mild nonspecific white matter changes. 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 Neurology consulted and discussed with via tiger text - recommend MR brain w/ contrast to further eval meningioma 10/24 No new neurologic symptoms Plan for left ICA vascular intervention tomorrow Continue aspirin, Plavix, atorvastatin 10/25 No neurologic symptoms Status post TCAR Continue to closely monitor in the ICU 10/26 Stable overall Continue to monitor closely Meningioma There is a dural based brightly enhancing soft tissue mass at the torcula measuring 18.2 x 16.8 x 14.1 mm consistent with a meningioma. Close outpatient follow up Bilateral BEATRICE s/p L TCAR 07/2023, consulted vascular for re-evaluation of abnormal CTA N, plan for redo procedure 10/25 continue asa, statin, plavix 10/25 Re-do Left Transcarotid Artery Revascularization(Left), Ultrasound of left common femoral vein - Ramakrishna Haddad MD T2DM controlled, on lantus, metformin as OP will hold metformin for now novolog correction coverage for now CKD-3 baseline cr 1.4 bun/cr stable gentle fluid prior contrast HTN continue Amlodipine, Losartan DVT ppx: SCDS, ASA, Plavix Dispo: Anticipate discharge to home when medically stable, cleared by Vascular Surgery FULL CODE PCP: Dr. Mcintyre Admission and Anticipated Discharge Date Admission Date: October 23, 2023 Subjective Follow-up for strokelike symptoms, status post TCAR, etc. Seen resting in bed, sitting up, in good spirits having dinner States she feels fine overall Denies neck pain, neurologic symptoms No shortness of breath, palpitations, dizziness No other new symptoms Review of Systems Review of Systems: all noted and negative except for above Physical Exam Physical Exam: General- oriented x 3, not in distress, speaks in sentences with no effort or accessory muscle use Eyes- anicteric Neck- no JVD Surgical site: Mild edema surrounding the incision site, no bleeding or discharge Lungs- clear breath sounds bilaterally, no rales/wheezes Heart- normal rate, regular rhythm; no murmurs Abdomen- normal bowel sounds, nondistended, soft, nontender Extremities- no pretibial edema, no calf tenderness Neuro- alert, oriented x 3; no gross focal neurologic deficits Skin- warm & dry Results & Data Results & Data Vital Signs (Past 12 Hours) Vital Signs Temp Pulse Pulse Resp BP BP BP 10/27/23 16:58 87 10/27/23 16:34 36.4 C L 76 21 165/65 H 10/27/23 15:16 37.2 C 75 18 146/86 H 10/27/23 12:03 142/50 H 10/27/23 10:27 67 22 10/27/23 10:21 67 16 10/27/23 10:18 70 16 10/27/23 10:09 65 23 10/27/23 10:00 144/58 H 10/27/23 09:51 68 22 10/27/23 09:42 64 30 H 10/27/23 09:30 66 23 10/27/23 09:27 70 24 10/27/23 09:18 71 25 H 10/27/23 09:09 85 23 10/27/23 08:54 99 H 19 10/27/23 08:48 67 20 10/27/23 08:30 80 19 10/27/23 08:21 78 17 10/27/23 08:06 103 H 19 10/27/23 08:01 154/81 H 10/27/23 07:54 79 18 10/27/23 07:45 71 28 H 10/27/23 07:30 10/27/23 07:30 68 16 10/27/23 07:00 62 18 10/27/23 07:00 36.8 C 10/27/23 06:54 69 16 10/27/23 06:42 63 17 10/27/23 06:36 65 19 10/27/23 06:24 66 18 10/27/23 06:06 67 21 10/27/23 05:57 60 12 10/27/23 05:55 36.5 C 58 L 16 150/54 H Pulse Ox O2 Del Method 10/27/23 16:58 10/27/23 16:34 98 Room Air 10/27/23 15:16 98 Room Air 10/27/23 12:03 10/27/23 10:27 10/27/23 10:21 10/27/23 10:18 10/27/23 10:09 10/27/23 10:00 10/27/23 09:51 10/27/23 09:42 10/27/23 09:30 10/27/23 09:27 10/27/23 09:18 10/27/23 09:09 10/27/23 08:54 10/27/23 08:48 10/27/23 08:30 10/27/23 08:21 10/27/23 08:06 10/27/23 08:01 10/27/23 07:54 10/27/23 07:45 10/27/23 07:30 Room Air 10/27/23 07:30 10/27/23 07:00 95 10/27/23 07:00 10/27/23 06:54 96 10/27/23 06:42 97 10/27/23 06:36 94 10/27/23 06:24 98 10/27/23 06:06 97 10/27/23 05:57 94 10/27/23 05:55 95 Room Air all noted and reviewed including below
[2023-10-28] MEDS: amLODIPine BESYLATE 5 MG TAB PO SCH ×2 (08:22→09:01)
[2023-10-28 08:41] LABS: Basophils # (auto) 0.07 K/uL (0.00-0.20); Basophils % (auto) 0.7 %; Eosinophils # (auto) 0.59 K/uL (0.00-0.50); Eosinophils % (auto) 5.5 %; Hematocrit (blood only) 28.8 % (37.0-47.0); Hemoglobin 9.4 g/dl (12.0-16.0); Immature Granulocytes # (auto) 0.02 K/uL (0.01-0.20); Immature Granulocytes % (auto) 0.2 %; Lymphocytes # (auto) 2.21 K/uL (1.20-3.40); Lymphocytes % (auto) 20.7 %; Mean Corpuscular Hemoglobin 29.2 pg (25.0-34.0); Mean Corpuscular Hgb Conc 32.6 g/dL (32.0-36.0); Mean Corpuscular Volume 89.4 fL (80.0-100.0); Mean Platelet Volume 10.5 fL (9.4-12.4); Monocytes # (auto) 1.14 K/uL (0.11-0.59); Monocytes % (auto) 10.7 %; Neutrophils # (auto) 6.67 K/uL (1.40-6.50); Neutrophils % (auto) 62.2 %; Platelet Count 296 K/uL (130-400); RDW Coefficient of Variation 13.3 % (11.5-14.5); RDW Standard Deviation 43.8 fL (36.4-46.3); Red Blood Count 3.22 M/uL (4.20-5.40)
[2023-10-28 09:19] LABS: Calcium 8.9 mg/dl (8.6-10.3); Creatinine Clr Calc Pharmacy 45.5 ml/min; Est GFR (African American) 51.9 ml/min; Est GFR (Non-African American) 44.8 ml/min; Potassium 4.1 mmol/L (3.5-5.1)
--- NOTE | 2023-10-28 19:11 | Discharge Summary ---
Discharge Summary Date of Service October 28, 2023 Principal Dx & Hospital Course #1 = Principal Diagnosis (1) Stroke-like symptoms: (2) Bilateral carotid artery stenosis: (3) Diabetes: (4) HTN (hypertension): (5) High cholesterol: (6) CKD (chronic kidney disease): Plan per previous hospitalist notes with addendum: 72-year-old female who has significant past medical history of T2DM insulin- dependent, CKD stage III, HTN, HLD, history of recurrent UTI, bilateral carotid artery stenosis with history of transcarotid artery revascularization on the left who presents to ED secondary to episodes of right hand paresthesias and d ysarthria. Stroke like sx - likely TIA as sx have resolved lasting < 10 minutes for all episodes Known B/L BEATRICE admitted to PCU Stroke workup with MRI brain, echocardiogram and neurology consult CTA N: Interval left transcarotid artery revascularization. Approximate 70% residual/recurrent stenosis of the proximal left internal carotid artery. No significant change in severe stenosis of the proximal right internal carotid artery with 80% narrowing since CT of August 03, 2023. Head CT and Head CTA unremarkable ED provider discussed with Vascular Surgery, Dr. Haddad, who will evaluate the patient and likely need re- intervention to her previous L TCAR. Plan for redo procedure on 10/25 Pt is scheduled for R TCAR in the future PT/OT/ST Lipid panel , LDL 64 and current A1c 6.4% continue ASA, plavix for now MR brain - No evidence of acute intercranial pathology. Mild nonspecific white matter changes. 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 Neurology consulted and discussed with via tiger text - recommend MR brain w/ contrast to further eval meningioma No new neurologic symptoms Status post L TCAR 10/[address] Haddad stable after procedure no nuerologic symptoms Continue aspirin, Plavix, atorvastatin Stable overall resume ASA, Plavix, Statin monitor A1c, Lipid panel closely Zio patch monitor as outpatient Meningioma There is a dural based brightly enhancing soft tissue mass at the torcula measuring 18.2 x 16.8 x 14.1 mm consistent with a meningioma. Close outpatient follow up refer to Neuro, needs ff up in 2 weeks Bilateral BEATRICE s/p L TCAR 07/2023, consulted vascular for re-evaluation of abnormal CTA N, plan for redo procedure 10/25 continue asa, statin, plavix 10/25 Re-do Left Transcarotid Artery Revascularization(Left), Ultrasound of left common femoral vein - Ramakrishna Haddad MD T2DM controlled, on lantus, metformin as OP CKD-3 baseline cr 1.4 bun/cr stable gentle fluid prior contrast HTN continue Amlodipine, Losartan Dispo: d/c home ff up in 1 week with PCP Neuro in 2 weeks Notes For Next Care Provider monitor meningioma monitor lipid panel, A1c Medication Changes From Visit None Admission HPI Per Admitting Provider This is a 72-year-old female who has significant past medical history of T2DM insulin-dependent, CKD stage III, HTN, HLD, history of recurrent UTI, bilateral carotid artery stenosis with history of transcarotid artery revascularization on the left who presents to ED secondary to episodes of right hand paresthesias and dysarthria. Of significance patient follows with [facility] vascular surgery and underwent left transcarotid artery revascularization on August 29, 2023. she presents to ED today after experiencing episode of right hand paresthesias, tongue numbness and dysarthria. This is the third episode of its kind. Each episode lasted 5-10 min. She initially experienced this on and attributed it to the heat. She again experienced an episode last week and then today. Today's episode was witnessed by family and she was encouraged to come to ED for further evaluation. Son is at bedside today who helps elicit history. Today at 12 p.m. she started having slurred speech. This was witnessed by youngest son. Sx lasted about 8 minutes. She was at her Sons house and decided to drive home. On the way home she talked to her other son who encouraged her to come to ED. She presented her. She is right hand dominant. She felt like she was able to understand everything, but speech was slurred. She knew something was wrong. Prior to her TCAR surgery she has never had similar sx. She denies any recent illness, f/c/s, chest pain, sob, uri sx, n/v/d, abd pain. She states her PCP noted a bruit on bilateral carotids in June which is how they found her stenosis. She has a FH with mother who has TIA. Admission Exam Per Admitting Provider General: Lying comfortably in bed, not in distress, on room air HEENT: EOMI, KASSANDRA, MMM. Carotid bruit Chest: Clear breath sounds bilaterally, no wheezes or crackles CVS: Regular rate and rhythm, normal heart sounds, no murmur Abdomen: Soft, non tender, not distended, normal bowel sounds Neuro: Awake, alert, oriented, conversing well, non focal Extremities: No edema Discharge Exam General- oriented x 3, not in distress, speaks in sentences with no effort or accessory muscle use Eyes- anicteric Neck- no JVD wound on neck: Well opposed, no bleeding or discharge, minimal hematoma surrounding, resolving Minimal edema superior to the wound Lungs- clear breath sounds bilaterally, no rales/wheezes Heart- normal rate, regular rhythm; no murmurs Abdomen- normal bowel sounds, nondistended, soft, nontender Left inguinal region: Wound healing well, no surrounding erythema edema or hematoma Extremities- no pretibial edema, no calf tenderness Neuro- alert, oriented x 3; no gross focal neurologic deficits Skin- warm & dry Updated Medication List Medication Instructions Recorded Confirmed Type lancets 33 gauge (OneTouch Delica #100 ea 09/02/21 10/24/23 Rx Lancets) blood sugar diagnostic (OneTouch #100 ea 09/03/21 10/24/23 Rx Verio test strips) lancets 33 gauge (OneTouch Delica #100 ea 09/03/21 10/24/23 Rx Plus Lancet) pen needle, diabetic 32 gauge x #50 ea 09/03/21 10/24/23 Rx 5/32" (Pen Needle) amlodipine 2.5 mg tablet 2.5 mg PO QAM 08/03/23 10/23/23 History aspirin 81 mg tablet,delayed 81 mg PO QAM 08/03/23 10/23/23 History release losartan 25 mg tablet 25 mg PO QAM 08/03/23 10/23/23 History atorvastatin 40 mg tablet 40 mg PO QAM 08/08/23 10/23/23 History insulin glargine 100 unit/mL (3 7 unit subcut UD 08/08/23 10/23/23 History mL) subcutaneous pen (Basaglar KwikPen U-100 Insulin) metformin 500 mg 24 hr 1,000 mg PO .DAILY WITH DINNER 08/08/23 10/23/23 History tablet,extended release (gastric retention) clopidogrel 75 mg tablet 75 mg PO DAILY 08/15/23 10/23/23 History oxycodone-acetaminophen 5 mg-325 1 tab PO UD PRN pain 10/23/23 10/23/23 History mg tablet (Percocet) Hospital Stay Data Consultations 10/23/23 18:26 Consult Neurology Routine Consult Vascular Surgery Routine 10/26/23 16:09 Consult Auto Rental Supervisor Routine Procedures Performed Operation Date: 10/26/23 13:00 Actual Procedures p Re-do Left Transcarotid Artery Revascularization(Left) - Ramakrishna Haddad MD Diagnostic Imagining Performed Laboratory Results WBC 10.70 K/ul (4.8-10.8) 10/28/23 08:22 RBC 3.22 M/uL (4.20-5.40) L 10/28/23 08:22 Hgb 9.4 g/dl (12.0-16.0) L 10/28/23 08:22 Hct 28.8 % (37.0-47.0) L 10/28/23 08:22 MCV 89.4 fL (80.0-100.0) 10/28/23 08:22 MCH 29.2 pg (25.0-34.0) 10/28/23 08:22 MCHC 32.6 g/dL (32.0-36.0) 10/28/23 08:22 RDW Std Deviation 43.8 fL (36.4-46.3) 10/28/23 08:22 RDW Coeff of Bernie 13.3 % (11.5-14.5) 10/28/23 08:22 Plt Count 296 K/uL (130-400) 10/28/23 08:22 MPV 10.5 fL (9.4-12.4) 10/28/23 08:22 Immature Gran % (Auto) 0.2 % 10/28/23 08:22 Neut % (Auto) 62.2 % 10/28/23 08:22 Lymph % (Auto) 20.7 % 10/28/23 08:22 [place] % (Auto) 10.7 % 10/28/23 08:22 Eos % (Auto) 5.5 % 10/28/23 08:22 Baso % (Auto) 0.7 % 10/28/23 08:22 Neut # (Auto) 6.67 K/uL (1.40-6.50) H 10/28/23 08:22 Lymph # (Auto) 2.21 K/uL (1.20-3.40) 10/28/23 08:22 [place] # (Auto) 1.14 K/uL (0.11-0.59) H 10/28/23 08:22 Eos # (Auto) 0.59 K/uL (0.00-0.50) H 10/28/23 08:22 Baso # (Auto) 0.07 K/uL (0.00-0.20) 10/28/23 08:22 Immature Gran # (Auto) 0.02 K/uL (0.01-0.20) 10/28/23 08:22 PT 10.8 Seconds (9.0-12.0) 10/23/23 13:48 INR 1.0 (0.9-1.1) 10/23/23 13:48 APTT 29 Seconds (21-31) 10/23/23 13:48 PTT Ratio 1.1 10/23/23 13:48 Activ Coag Time Kaolin 146 SECONDS (94-140) H 10/26/23 14:45 Heparin Anti-Xa, Unfract 0.85 IU/ml (0.3-0.7) H* 10/26/23 06:05 Sodium 136 mmol/L (136-145) 10/28/23 08:22 Potassium 4.1 mmol/L (3.5-5.1) 10/28/23 08:22 Chloride 105 mmol/L (98-107) 10/28/23 08:22 Carbon Dioxide 24 mmol/L (21-32) 10/28/23 08:22 Anion Gap 7 (3-11) 10/28/23 08:22 BUN 18 mg/dl (6-23) 10/28/23 08:22 Creatinine 1.20 mg/dl (0.6-1.2) 10/28/23 08:22 Est Cr Clr Drug Dosing 45.5 ml/min 10/28/23 08:22 Est GFR ( Amer) 51.9 ml/min 10/28/23 08:22 Est GFR (Non-Af Amer) 44.8 ml/min 10/28/23 08:22 BUN/Creatinine Ratio 15.0 (10-20) 10/28/23 08:22 Glucose 146 mg/dl (70-99(Fasting)) H 10/28/23 08:22 POC Glucose 119 mg/dl (70-99) H 10/28/23 11:18 Estimat Average Glucose 137 mg/dl 10/24/23 03:51 Hemoglobin A1c 6.4 % (4.5-5.6) H 10/24/23 03:51 Calcium 8.9 mg/dl (8.6-10.3) 10/28/23 08:22 Phosphorus 3.0 mg/dl (2.5-4.9) 10/25/23 08:14 Magnesium 1.9 mg/dl (1.7-2.4) 10/25/23 08:14 Total Bilirubin 0.5 mg/dl (0.2-1.0) 10/24/23 03:51 AST 15 U/L (13-39) 10/24/23 03:51 ALT 10 U/L (7-52) 10/24/23 03:51 Alkaline Phosphatase 86 U/L (34-104) 10/24/23 03:51 Troponin I High Sens 5.3 pg/ml (0-14) 10/23/23 13:48 Total Protein 7.1 gm/dl (6.0-8.3) 10/24/23 03:51 Albumin 4.0 gm/dl (3.4-5.0) 10/24/23 03:51 Globulin 3.1 gm/dl (2.5-4.0) 10/24/23 03:51 Albumin/Globulin Ratio 1.3 (0.9-2) 10/24/23 03:51 Triglycerides 78 mg/dl (0-150) 10/24/23 03:51 Cholesterol 121 mg/dl (0-200) 10/24/23 03:51 LDL Cholesterol, Calc 64 mg/dl 10/24/23 03:51 VLDL Cholesterol, Calc 16 mg/dl (0-30) 10/24/23 03:51 HDL Cholesterol 41 mg/dl 10/24/23 03:51 Cholesterol/HDL Ratio 3.0 (0-5) 10/24/23 03:51 Urine Color Yellow 10/23/23 Unknown Urine Appearance Clear (Clear) 10/23/23 Unknown Urine pH 6.5 (4.5-7.5) 10/23/23 Unknown Ur Specific [place] 1.007 (1.000-1.030) 10/23/23 Unknown Urine Protein Negative (Negative) 10/23/23 Unknown Urine Glucose (UA) Negative (Negative) 10/23/23 Unknown Urine Ketones Negative (Negative) 10/23/23 Unknown Urine Blood Negative (Negative) 10/23/23 Unknown Urine Nitrite Negative (Negative) 10/23/23 Unknown Urine Bilirubin Negative (Negative) 10/23/23 Unknown Urine Urobilinogen Negative (Negative) 10/23/23 Unknown Ur Leukocyte Esterase 2+ (Negative) H 10/23/23 Unknown Urine WBC (Auto) 6-10 /hpf (0-5) H 10/23/23 Unknown Urine RBC (Auto) 0-2 /hpf (0-2) 10/23/23 Unknown U Hyaline Cast (Auto) 0-2 /lpf (0-2) 10/23/23 Unknown U Epithel Cells (Auto) 3-5 /hpf (0-2) H 10/23/23 Unknown Urine Bacteria (Auto) None Seen (None Seen) 10/23/23 Unknown Blood Type O Positive 10/25/23 08:13 Antibody Screen NEGATIVE 10/25/23 08:13 Impressions Chest X-Ray 10/23/23 13:33 XR chest 1V portable CLINICAL HISTORY: neuro deficit, acute stroke suspected TECHNIQUE: Single frontal radiograph of the chest was obtained. Comparison: Comparison is made to chest radiograph 08/15/2023 FINDINGS: No lines and tubes are seen. Calcified aortic knob is seen. The lungs are clear. No evidence of pleural effusion or pneumothorax. IMPRESSION: No acute chest disease. ACT 112: Negative or not required by law. Electronically signed by: Rojas Huerta M.D. 10/23/2023 2:[address] 10/23/23 13:33 CT SCAN OF THE BRAIN WITHOUT IV CONTRAST CLINICAL HISTORY: Neurological deficit. Stroke like symptoms. COMPARISON STUDY: CT of the brain dated 08/29/2021. TECHNIQUE: Unenhanced axial CT scan of the brain is performed from the vertex to the skull base. A dose lowering technique was utilized adhering to the principles of ALARA. FINDINGS: Brain parenchyma: There is age-related involutional change noting moderate subcortical and periventricular microangiopathic disease. There is no hemorrhage, mass effect, or evidence of acute territorial ischemia by CT criteria. Yu-white matter differentiation is preserved. No extra-axial fluid collection is seen. Ventricles, sulci, cisterns: Prominent secondary to involutional change. Intracranial vasculature: There is atherosclerotic calcification of the cavernous carotid and vertebral arteries. Calvarium: Unremarkable. Sinuses and mastoids: The visualized paranasal sinuses are clear. The mastoid air cells are well pneumatized. Orbits: The bony orbits are grossly intact. IMPRESSION: There is no hemorrhage, mass effect, or evidence of acute territorial ischemia by CT criteria. ACT 112: Negative or not required by law. Electronically signed by: Amanuel Lainez M.D. 10/23/2023 3:38 PM Head CTA 10/23/23 13:33 CT angio head w con CLINICAL HISTORY: neuro deficit, acute stroke suspected TECHNIQUE: CT angiography of the head was performed following intravenous administration of iodinated contrast. Coronal and sagittal MIPS were obtained from the axial data set and were submitted for review. Automated dose lowering techniques and/or adjustment according to patient size were utilized for this examination. All measurements were calculated based on NASCET criteria. Comparison: Comparison is made to CT head 10/23/2023 FINDINGS: CTA Head: The anterior and posterior cerebral circulations are patent. origin of the right posterior cerebral artery is seen. IMPRESSION: No occlusion, hemodynamically significant stenosis, aneurysm, dissection, or arteriovenous malformation in the major intracranial arteries. Assessment of stenosis of the internal carotid arteries is based on NASCET criteria. ACT 112: Negative or not required by law. Electronically signed by: Rojas Huerta M.D. 10/23/2023 3:45 PM Neck CTA 10/23/23 13:33 CT ANGIOGRAPHY OF THE NECK WITH CONTRAST CLINICAL HISTORY: neuro deficit, acute stroke suspected COMPARISON STUDY: CTA of the neck August 03, 2023. Technique: CT angiography of the carotid and vertebral arteries was obtained using Optiray and 3D reconstruction on an independent workstation. NASCET criteria was utilized. Automated exposure control was utilized for the study. A dose lowering technique was utilized adhering to the principles of ALARA. CT DOSE: 1381.93 mGy.cm Findings: Mild stenosis at the origin the left vertebral artery is unchanged. Areas of high-grade narrowing of the V2 segment of the right vertebral artery are also unchanged since CT of August 03, 2023. There is no dissection or aneurysm within the neck. Severe stenosis of the proximal right internal carotid artery with 80% narrowing is unchanged since CT of August 03, 2023. Interval left transcarotid artery revascularization is noted. There is approximate 70% residual stenosis of the proximal left internal carotid artery. This is improved since CT of August 03, 2023. No additional stenoses are identified. IMPRESSION: 1. No significant change in severe stenosis of the proximal right internal carotid artery with 80% narrowing since CT of August 03, 2023. 2. Interval left transcarotid artery revascularization. Approximate 70% residual/recurrent stenosis of the proximal left internal carotid artery. ACT 112: Negative or not required by law. Electronically signed by: Eric You M.D. 10/23/2023 3:52 PM Brain MRI 10/24/23 15:28 Exam(s): MRI HEAD W/WO Contrast IV Amt: 7.5mL Gadavist given IV EXAM: MR Head Without and With Intravenous Contrast CLINICAL HISTORY: Reason for exam: meningioma. TECHNIQUE: Magnetic resonance images of the head/brain without and with intravenous contrast in multiple planes. CONTRAST: Patient received 7.5mL Gadavist given IV of IV contrast COMPARISON: Comparison made to prior brain MRI from October 23, 2023. FINDINGS: Brain: Mild nonspecific white matter changes. No hemorrhage. No acute infarct. The flow voids of the base of the right are intact. There is a brightly enhancing dural based soft tissue mass at the torcula, likely representing a meningioma, measuring 18.2 x 16.8 x 14.1 mm.. Ventricles: Unremarkable. No ventriculomegaly. Bones/joints: Unremarkable. No acute fracture. Sinuses: Chronic left ethmoid and frontal sinusitis. No acute sinusitis. Mastoid air cells: Unremarkable as visualized. No mastoid effusion. Orbits: Unremarkable as visualized. IMPRESSION: No evidence of acute intracranial pathology. There is a dural based brightly enhancing soft tissue mass at the torcula measuring 18.2 x 16.8 x 14.1 mm consistent with a meningioma. Electronically signed by: Kacy Palma MD 10/25/23 02:08 AM Pending Results Patient Have Any Pending Studies at Discharge: No Discharge Instructions Given to Patient (Per Discharging Provider) YOU CAN RESUME YOUR USUAL MEDICATION REGIMEN. FOR WOUND ON THE NECK, YOU CAN KEEP THIS OPEN TO AIR. KEEP AREA DRY AND CLEAN. USE MILD SOAP AND WATER TO CLEAN. ONLY PAT TO DRY. NO PULLING, SCRUBBING. APPLY ICE PACK 2-3X A DAY. FOR WOUND ON THE GROIN, YOU CAN PLACE A BAND AID OVER THE SITE. KEEP AREA DRY AND CLEAN. USE MILD SOAP AND WATER TO CLEAN. NO BATHING IN THE TUB, SWIMMING. YOU NEED TO HAVE A ZIO PATCH/PULP DRIER PLACED TO RULE OUT IRREGULAR HEART BEAT. YOUR PRIMARY CARE PHYSICIAN CAN ARRANGE FOR THIS. OUTPATIENT CLOSE MONITORING OF MENINGIOMA. FOLLOW UP WITH NEUROLOGIST CLOSELY. PLEASE CALL YOUR PRIMARY CARE PHYSICIAN OR RETURN TO THE ER IF WITH WORSENING OF SYMPTOMS, INCLUDING FEVER/CHILLS, INCREASING PAIN, REDNESS, BRUISING, WARMTH, BLEEDING, DISCHARGE OVER WOUND SITES. FOLLOW UP WITH PRIMARY CARE PHYSICIAN OUTLINED ABOVE. FOLLOW UP WITH DR. HADDAD IN 1 WEEK. FOLLOW UP WITH NEUROLOGIST IN 2-3 WEEKS. Who to Call and When: Medical Emergencies: Call 911 immediately if you experience any of the following warning signs and symptoms of Stroke: Sudden numbness or weakness of the face, arm or leg, especially on one side of the body Sudden confusion, trouble speaking or understanding Sudden trouble seeing in one or both eyes Sudden trouble walking, dizziness, loss of balance or coordination Sudden severe headache with no cause Do not delay calling 911 if you experience any warning signs or symptoms of a stroke. Delay in seeking medical attention may affect what treatments can be given to you. Risk Factors for Stroke: You can reduce your chances of stroke by working with your medical provider to adopt a healthy lifestyle. Some specific ways to lower your chance of stroke are: If you are a smoker, now is the time to stop smoking cigarettes If you are diabetic, improve the control of your blood sugars Avoid excessive amounts of alcohol Control high blood pressure Lose weight if you are overweight Be sure to lead an active lifestyle Eat a healthy diet low in salt, cholesterol and fat You should know about other risk factors for stroke that you are unable to control. These include: Age 55 years or older Male gender Certain racial groups: , or / Family History of Stroke, Mini stroke or Heart Attack Sickle Cell Disease Follow Up: It is important for you to keep your follow up appointments with your medical provider. Total Time Total Time Spent Total Time Spent (In Minutes): 50 minutes
== END 2023-10-28 15:30 | disposition home or self-care (01) | DRG 253 ==
LOC: ED 13:17 → SUATTDRO 16:37 → EDINP 16:37 → 2E 22:13 → 1E 10-26 16:11 → 2E 10-27 14:54
PROC: EV.TCAR (2023-10-26 13:00)

== ENCOUNTER 2023-11-12 23:14 | Inpatient (IN) ==
[2023-11-13 00:28] LABS: Appearance Urine Clear (Clear); Bacteria Urine Automated None Seen (None Seen); Bilirubin Urine Negative (Negative); Blood Urine Negative (Negative); Cast Urine Automated 0-2 /lpf (0-2); Color Urine Yellow; Glucose Urine UA Negative (Negative); Ketones Urine Negative (Negative); Leukocyte Esterase Urine 1+ (Negative); Nitrite Urine Negative (Negative); Protein Urine Negative (Negative); RBC Urine Automated 0-2 /hpf (0-2); Specific Gravity Urine 1.007 (1.000-1.030); Urobilinogen Urine Negative (Negative); WBC Urine Automated 0-5 /hpf (0-5)
[2023-11-13] MEDS: LORazepam 1 MG/1 ML SYR ED Inj Use IV STA (02:07)
[2023-11-13] MEDS: PHENAZOPYRIDINE HCL 200 MG TAB PO STA (02:12)
[2023-11-13 02:17] LABS: Basophils # (auto) 0.06 K/uL (0.00-0.20); Basophils % (auto) 0.6 %; Eosinophils # (auto) 0.31 K/uL (0.00-0.50); Eosinophils % (auto) 3.1 %; Hematocrit (blood only) 32.2 % (37.0-47.0); Hemoglobin 10.5 g/dl (12.0-16.0); Immature Granulocytes # (auto) 0.03 K/uL (0.01-0.20); Immature Granulocytes % (auto) 0.3 %; Lymphocytes # (auto) 2.09 K/uL (1.20-3.40); Lymphocytes % (auto) 21.1 %; Mean Corpuscular Hemoglobin 28.2 pg (25.0-34.0); Mean Corpuscular Hgb Conc 32.6 g/dL (32.0-36.0); Mean Corpuscular Volume 86.6 fL (80.0-100.0); Mean Platelet Volume 9.9 fL (9.4-12.4); Monocytes # (auto) 0.83 K/uL (0.11-0.59); Monocytes % (auto) 8.4 %; Neutrophils # (auto) 6.58 K/uL (1.40-6.50); Neutrophils % (auto) 66.5 %; Platelet Count 411 K/uL (130-400); RDW Coefficient of Variation 13.1 % (11.5-14.5); RDW Standard Deviation 41.1 fL (36.4-46.3); Red Blood Count 3.72 M/uL (4.20-5.40)
[2023-11-13 02:31] LABS: Albumin Globulin Ratio 1.3 (0.9-2); Albumin Level 4.5 gm/dl (3.4-5.0); BUN Creatinine Ratio 10.2 (10-20); Bilirubin,Total 0.5 mg/dl (0.2-1.0); Calcium 9.8 mg/dl (8.6-10.3); Creatinine Clr Calc Pharmacy 33.5 ml/min; Est GFR (African American) 37.3 ml/min; Est GFR (Non-African American) 32.1 ml/min; Globulin 3.6 gm/dl (2.5-4.0); Potassium 4.8 mmol/L (3.5-5.1); Total Protein 8.1 gm/dl (6.0-8.3)
[2023-11-13] MEDS: SODIUM CHLORIDE 0.9% 1,000 ML IV ONE (02:50)
[2023-11-13 04:04] LABS: Magnesium 1.8 mg/dl (1.7-2.4)
--- NOTE | 2023-11-13 04:11 | History & Physical Report ---
Date of Service November 13, 2023 Assessment & Plan (1) Hyponatremia: Plan: Hypovolemic hyponatremia Secondary to persistent complicated UTI, recurrent infections No sepsis for now ARF on CKD secondary to above Recent Bactrim Rx contributory hx TIA, PVD status post surgery hypertension, slightly elevated secondary to anxiety hyperlipidemia on statin Rx DM2 insulin requiring, well-controlled as of recent hemoglobin A1c of 6.4 last month past tobacco abuse Admit to medical telemetry Recheck serum sodium after initial fluid bolus given at the ER Hyponatremia workup Stop Bactrim, hold losartan until creatinine back to baseline Urine CS, Cefepime for now CT abdomen pelvis Re: Persistent discomfort, recurrent UTIs Further management contingent on workup results Psych consult re: overwhelming anxiety Basal bolus insulin, ISS BG goal 1 10-1 40, carb count coverage DVT prophylaxis. Heparin subcu Full code Text document was generated using [employer] voice recognition software. It may contain grammatical or spelling errors. Kindly contact undersigned for clarification of any documentation item in question. History of Present Illness Chief Complaint: Nausea, dysuria, insomnia Primary Care Provider: Dr. Mcintyre History obtained from patient and records. Medical history significant for TIA, PVD status post surgery, hypertension, hyperlipidemia, DM2 insulin requiring, CRI (baseline creatinine 1.4), recurrent UTIs, meningioma, past tobacco abuse. Recent confinement last month for TIA symptoms and bilateral carotid artery disease. Patient underwent redo procedure for previous left TCAR. Right TCAR scheduled for end of the month. Few days after leaving hospital, she experienced dysuria symptoms. No fever, no chills. Patient seen at PCPs office 2 weeks ago. Patient initially prescribed cefuroxime. Final urine CS grew ceftriaxone and Zosyn resistant Klebsiella aerogenes. Patient switched to Bactrim. Poor appetite, nausea symptoms with persistent bladder discomfort despite compliance with Bactrim. No hematuria. No chest pain, no SOB. Not sleeping a lot, admits to increased anxiety with health issues. Denies inordinate water intake. Denies suicidality. Patient consulted ER for evaluation. 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 Allergies Allergy/AdvReac Type Severity Reaction Status Date / Time No Known Allergies Allergy Verified 11/13/23 03:23 Home Medications Medication Instructions Recorded Confirmed Type lancets 33 gauge (OneTouch Delica #100 ea 09/02/21 11/13/23 Rx Lancets) blood sugar diagnostic (OneTouch #100 ea 09/03/21 11/13/23 Rx Verio test strips) lancets 33 gauge (OneTouch Delica #100 ea 09/03/21 11/13/23 Rx Plus Lancet) pen needle, diabetic 32 gauge x #50 ea 09/03/21 11/13/23 Rx 5/32" (Pen Needle) amlodipine 2.5 mg tablet 2.5 mg PO QAM 08/03/23 11/13/23 History aspirin 81 mg tablet,delayed 81 mg PO QAM 08/03/23 11/13/23 History release losartan 25 mg tablet 25 mg PO QAM 08/03/23 11/13/23 History atorvastatin 40 mg tablet 40 mg PO QAM 08/08/23 11/13/23 History insulin glargine 100 unit/mL (3 7 unit subcut QA 08/08/23 11/13/23 History mL) subcutaneous pen (Basaglar KwikPen U-100 Insulin) metformin 500 mg 24 hr 500 mg PO BID 08/08/23 11/13/23 History tablet,extended release (gastric retention) clopidogrel 75 mg tablet 75 mg PO QAM 08/15/23 11/13/23 History Past Med/Surg History Problem List (Updated 11/13/23 @ 08:10 by Nabil Latham MD) Hyponatremia Dysuria (Acute) Anxiety (Acute) JOEL (acute kidney injury) (Acute) Acute hyponatremia (Acute) Stenosis of left internal carotid artery Stroke-like symptoms (Acute) Bilateral carotid artery stenosis Tobacco abuse Hypertension Weakness (Acute) JOEL (acute kidney injury) (Acute) Acute dehydration (Acute) Acute hyperkalemia (Acute) HHNC (hyperglycemic hyperosmolar nonketotic coma) (Acute) Medical History History of cardiac monitoring following [place] ER visit on 10/23/23, "patches placed" for 2 weeks by PCP due to ER d/c instructions Hx: UTI (urinary tract infection) 11/05/23 started abx, will complete abx by DOS; symptoms are "getting a little better" Stroke-like symptoms hx 10/23/23, went [facility] ER, "said it was a possible TIA, no residual effects"; had re-do TCAR left side 3 days later Pseudohyponatremia Type 2 diabetes mellitus with hyperosmolar hyperglycemic state (HHS) Carotid artery disease Hx of ectopic High cholesterol HTN (hypertension) CKD (chronic kidney disease) Stage 3 Follows with [facility] nephrology Surgical History History of transcarotid artery revascularization (TCAR) 07/2023, left 09/2023, re-do left TCAR S/P laparotomy for ectopic (unsure if she had a salpingectomy) History of cholecystectomy Family History Mother TIA (transient ischemic attack) FHx: carotid endarterectomy Other No family history of adverse response to anesthesia Social History Smoking Status: Former smoker Second Hand Exposure: No; Do You Dip or Chew Tobacco: No; Hx Alcohol Use: No Hx Substance Use: No Preferred Language: Sami Communication Ability: Effective Holter Scanning Technician Required: No Beliefs That Will Affect Care: None Current Living Situation: Family Current Living Situation Comment: lives with son Feels Safe at Home: Yes Safety Concerns: Feels Safe At This Time Assistive Devices: None Review of Systems Review of Systems: As per HPI, all other systems reviewed and negative Physical Exam Physical Exam: GENERAL: Anxious, pleasant, no respiratory distress SKIN: Pallor, warm HEENT: Pale palpebral conjunctivae, no ptosis, dry buccal mucosa NECK : Supple, no tenderness CHEST : CTA, no tenderness HEART : RRR, no obvious murmurs ABDOMEN: Some distention, minimal hypogastric tenderness EXTREMITIES : No LE swelling/tenderness, no other conspicuous deformities noted NEUROLOGIC : Coherent, no facial asymmetry, no other gross focality Results & Data Results & Data Vital Signs (Past 12 Hours) Vital Signs Temp Pulse Pulse Resp BP BP Pulse Ox 11/13/23 03:00 65 16 143/95 H 95 11/13/23 03:00 62 16 143/95 H 98 11/13/23 02:24 62 11/13/23 02:01 98 11/13/23 01:14 71 19 160/74 H 96 11/12/23 23:43 75 20 187/106 H 98 11/12/23 23:22 36.4 C L 81 16 158/68 H 97 O2 Del Method 11/13/23 03:00 Room Air 11/13/23 03:00 11/13/23 02:24 11/13/23 02:01 Room Air 11/13/23 01:14 Room Air 11/12/23 23:43 Room Air 11/12/23 23:22 Room Air Laboratory Results Laboratory Results WBC 9.90 K/ul (4.8-10.8) 11/13/23 02:03 RBC 3.72 M/uL (4.20-5.40) L 11/13/23 02:03 Hgb 10.5 g/dl (12.0-16.0) L 11/13/23 02:03 Hct 32.2 % (37.0-47.0) L 11/13/23 02:03 MCV 86.6 fL (80.0-100.0) 11/13/23 02:03 MCH 28.2 pg (25.0-34.0) 11/13/23 02:03 MCHC 32.6 g/dL (32.0-36.0) 11/13/23 02:03 RDW Std Deviation 41.1 fL (36.4-46.3) 11/13/23 02:03 RDW Coeff of Bernie 13.1 % (11.5-14.5) 11/13/23 02:03 Plt Count 411 K/uL (130-400) H 11/13/23 02:03 MPV 9.9 fL (9.4-12.4) 11/13/23 02:03 Immature Gran % (Auto) 0.3 % 11/13/23 02:03 Neut % (Auto) 66.5 % 11/13/23 02:03 Lymph % (Auto) 21.1 % 11/13/23 02:03 [place] % (Auto) 8.4 % 11/13/23 02:03 Eos % (Auto) 3.1 % 11/13/23 02:03 Baso % (Auto) 0.6 % 11/13/23 02:03 Neut # (Auto) 6.58 K/uL (1.40-6.50) H 11/13/23 02:03 Lymph # (Auto) 2.09 K/uL (1.20-3.40) 11/13/23 02:03 [place] # (Auto) 0.83 K/uL (0.11-0.59) H 11/13/23 02:03 Eos # (Auto) 0.31 K/uL (0.00-0.50) 11/13/23 02:03 Baso # (Auto) 0.06 K/uL (0.00-0.20) 11/13/23 02:03 Immature Gran # (Auto) 0.03 K/uL (0.01-0.20) 11/13/23 02:03 Sodium 123 mmol/L (136-145) L 11/13/23 02:03 Potassium 4.8 mmol/L (3.5-5.1) 11/13/23 02:03 Chloride 94 mmol/L (98-107) L 11/13/23 02:03 Carbon Dioxide 20 mmol/L (21-32) L 11/13/23 02:03 Anion Gap 9 (3-11) 11/13/23 02:03 BUN 16 mg/dl (6-23) 11/13/23 02:03 Creatinine 1.57 mg/dl (0.6-1.2) H 11/13/23 02:03 Est Cr Clr Drug Dosing 33.5 ml/min 11/13/23 02:03 Est GFR ( Amer) 37.3 ml/min 11/13/23 02:03 Est GFR (Non-Af Amer) 32.1 ml/min 11/13/23 02:03 BUN/Creatinine Ratio 10.2 (10-20) 11/13/23 02:03 Glucose 109 mg/dl (70-99(Fasting)) H 11/13/23 02:03 Calcium 9.8 mg/dl (8.6-10.3) 11/13/23 02:03 Magnesium 1.8 mg/dl (1.7-2.4) 11/13/23 02:03 Total Bilirubin 0.5 mg/dl (0.2-1.0) 11/13/23 02:03 AST 19 U/L (13-39) 11/13/23 02:03 ALT 10 U/L (7-52) 11/13/23 02:03 Alkaline Phosphatase 94 U/L (34-104) 11/13/23 02:03 Total Protein 8.1 gm/dl (6.0-8.3) 11/13/23 02:03 Albumin 4.5 gm/dl (3.4-5.0) 11/13/23 02:03 Globulin 3.6 gm/dl (2.5-4.0) 11/13/23 02:03 Albumin/Globulin Ratio 1.3 (0.9-2) 11/13/23 02:03 Lipase 31 U/L (11-82) 11/13/23 02:03 Urine Color Yellow 11/13/23 00:05 Urine Appearance Clear (Clear) 11/13/23 00:05 Urine pH 6.0 (4.5-7.5) 11/13/23 00:05 Ur Specific [place] 1.007 (1.000-1.030) 11/13/23 00:05 Urine Protein Negative (Negative) 11/13/23 00:05 Urine Glucose (UA) Negative (Negative) 11/13/23 00:05 Urine Ketones Negative (Negative) 11/13/23 00:05 Urine Blood Negative (Negative) 11/13/23 00:05 Urine Nitrite Negative (Negative) 11/13/23 00:05 Urine Bilirubin Negative (Negative) 11/13/23 00:05 Urine Urobilinogen Negative (Negative) 11/13/23 00:05 Ur Leukocyte Esterase 1+ (Negative) H 11/13/23 00:05 Urine WBC (Auto) 0-5 /hpf (0-5) 11/13/23 00:05 Urine RBC (Auto) 0-2 /hpf (0-2) 11/13/23 00:05 U Hyaline Cast (Auto) 0-2 /lpf (0-2) 11/13/23 00:05 U Epithel Cells (Auto) 3-5 /hpf (0-2) H 11/13/23 00:05 Urine Bacteria (Auto) None Seen (None Seen) 11/13/23 00:05 Diagnostic Findings Chest x-ray as per my interpretation cardiomegaly
[2023-11-13] MEDS ORDERED: PROMETHAZINE HCL 6.25 MG in SODIUM CHLORIDE 0.9% 50 ML IV PRN (04:16)
[2023-11-13] MEDS ORDERED: oxyCODONE HCL IR 5 MG TAB (IMMEDIATE RELEASE) PO PRN (04:16)
[2023-11-13 04:20] LABS: Thyroid Stimulating Hormone 1.595 uIu/ml (0.300-4.500)
[2023-11-13] MEDS: CEFEPIME 2,000 MG/20 ML VIAL IV STA (04:48)
[2023-11-13] MEDS ORDERED: GLUCOSE 40% GEL 15 GM TUBE PO PRN (05:42)
[2023-11-13] MEDS ORDERED: DEXTROSE 50% 50 ML SYRINGE IV PRN (05:42)
[2023-11-13] MEDS ORDERED: GLUCOSE 10 TAB/TUBE PO PRN (05:42)
[2023-11-13] MEDS ORDERED: GLUCAGON FOR INJ 1 MG VIAL SQ PRN (05:42)
[2023-11-13] MEDS ORDERED: CARBOHYDRATES FOR HYPOGLYCEMIA PO PRN (05:42)
[2023-11-13] MEDS: HEPARIN SOD 5,000 UNIT/0.5 ML VIAL SQ SCH (06:07)
[2023-11-13] MEDS: INSULIN ASPART PER UNIT CHARGE SC SCH (06:09)
--- NOTE | 2023-11-13 06:12 | CT Scan Report ---
Exam(s): CT ABDOMEN + PELVIS Without Contrast EXAM: CT Abdomen and Pelvis Without Intravenous Contrast CLINICAL HISTORY: Reason for exam: abd pain, recurrent utis. TECHNIQUE: Axial computed tomography images of the abdomen and pelvis without intravenous contrast. CTDI is 24.01 mGy and DLP is 1117.68 mGy-cm. Automated exposure control was utilized for the study. A dose lowering technique was utilized adhering to the principles of ALARA. COMPARISON: No relevant prior studies available. FINDINGS: Limitations: Limited evaluation in the absence of contrast. Lung bases: Unremarkable. No mass. No consolidation. Mediastinum: Small esophageal hiatal hernia. ABDOMEN: Liver: Unremarkable. Gallbladder and bile ducts: Cholecystectomy changes. No ductal dilation. Pancreas: Unremarkable. No ductal dilation. Spleen: Unremarkable. No splenomegaly. Adrenals: Unremarkable. No mass. Kidneys and ureters: No evidence of radiopaque renal calculi or signs of collecting system dilatation. Stomach and bowel: Unremarkable. No obstruction. No mucosal thickening. PELVIS: Appendix: No findings to suggest acute appendicitis. Bladder: Unremarkable. No stones. Reproductive: Unremarkable as visualized. ABDOMEN and PELVIS: Intraperitoneal space: Unremarkable. No free air. No significant fluid collection. Bones/joints: Degenerative changes in the spine. No acute fracture. No dislocation. Soft tissues: Unremarkable. Vasculature: Atherosclerotic disease. No abdominal aortic aneurysm. Lymph nodes: Unremarkable. No enlarged lymph nodes. IMPRESSION: 1. Limited evaluation in the absence of contrast. 2. No evidence of radiopaque renal calculi or signs of collecting system dilatation. 3. No other acute findings. 4. Incidental findings as described. Electronically signed by: Alejo Shaw MD 11/13/23 06:11 AM
--- NOTE | 2023-11-13 06:55 | Emergency Department Note ---
Impression & Plan Acute hyponatremia, JOEL (acute kidney injury), Anxiety, Dysuria admit to the [facility] ED Provider Note NAME: OSIRIS MARIE AGE: 73 SEX: Female INFORMANT: Patient ED PROVIDER(S): Sharee García DO CHIEF COMPLAINT: urinary symptoms and nausea PLAN: Disposition: admit to the [facility] MEDICAL DECISION MAKING: this is a 73-year-old female patient who presents to the emergency department with urinary symptoms and nausea. Patient has taken 2 courses of antibiotics- cefuroxime and Bactrim and presents to the emergency department with persistent urinary frequency and dysuria which has led to decreased sleep. Patient appears quite anxious on exam. Laboratory studies reveal no leukocytosis. The patient is anemic with a hemoglobin of 10.5 which is baseline for her. Creatinine is elevated at 1.57 which is up from 1.47. She is hyponatremic with a sodium of 123. Bolused with IV normal saline solution. She was given an initial dose of oral Pyridium and IV Ativan. I have discussed the case with the [facility] and they will evaluate for further inpatient care and treatment of hyponatremia. Care/management discussed with: process excellence manager and [facility] Triage Nursing notes: reviewed and agree with them. Vital Signs: reviewed and remarkable for hypertension Differential Diagnosis: sepsis, JOEL, dehydration, persistent UTI, electrolyte abnormality HPI: 73 year old Female arrives for evaluation of urinary symptoms and nausea. patient started taking cefuroxime on October 31 for a urinary tract infection. This was switched to Bactrim after approximately 5 days. Patient has persistent urinary frequency and dysuria which is leading to decreased sleep. PAST MEDICAL HISTORY: See Below, PAST SURGICAL HISTORY: See Below, SOCIAL HISTORY: See Below, HOME MEDICATIONS: See list ALLERGIES: none VITALS: See Below PHYSICAL EXAMINATION: HEENT: Head - normocephalic and atraumatic. Pupils are equal, round, and reactive to light. Extraocular eye muscles are intact, and sclera are anicteric. Nose - Dry nasal mucosa without discharge. Mouth - dry buccal mucosa. Oropharynx is nonerythematous and there is no tonsillar exudate or edema noted. Neck: Supple; no cervical lymphadenopathy appreciated Heart: Regular rate and rhythm. There is a normal S1 and S2 with no murmurs, clicks, or gallops appreciated. Lungs: Clear to auscultation bilaterally with no wheezes, rales, or rhonchi. Abdomen: Soft, completely nontender, nondistended, with good bowel sounds. There are no palpable pulsatile masses or hepatosplenomegaly. There is no guarding, rigidity, or rebound noted. Extremities: No evidence of cyanosis, clubbing, or edema. There are easily palpable peripheral pulses. Skin: pale,warm and dry with good turgor and no rashes. 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 A complete history and physical was performed. IV lock was initiated and labs were drawn as above. patient was bolused with IV normal saline solution. She was given oral dose of Pyridium and given an IV dose of Ativan. I reviewed the results of the laboratory studies with the patient. I discussed the case with the [facility] Hospitalist and they will evaluate for further inpatient care. Past Med/Surg History Problem List (Updated 11/13/23 @ 08:10 by Nabil Latham MD) Hyponatremia Dysuria (Acute) Anxiety (Acute) JOEL (acute kidney injury) (Acute) Acute hyponatremia (Acute) Stenosis of left internal carotid artery Stroke-like symptoms (Acute) Bilateral carotid artery stenosis Tobacco abuse Hypertension Weakness (Acute) JOEL (acute kidney injury) (Acute) Acute dehydration (Acute) Acute hyperkalemia (Acute) HHNC (hyperglycemic hyperosmolar nonketotic coma) (Acute) Medical History History of cardiac monitoring following [place] ER visit on 10/23/23, "patches placed" for 2 weeks by PCP due to ER d/c instructions Hx: UTI (urinary tract infection) 11/05/23 started abx, will complete abx by DOS; symptoms are "getting a little better" Stroke-like symptoms hx 10/23/23, went [place] ER, "said it was a possible TIA, no residual effects"; had re-do TCAR left side 3 days later Pseudohyponatremia Type 2 diabetes mellitus with hyperosmolar hyperglycemic state (HHS) Carotid artery disease Hx of ectopic High cholesterol HTN (hypertension) CKD (chronic kidney disease) Stage 3 Follows with [facility] nephrology Surgical History History of transcarotid artery revascularization (TCAR) 07/2023, left 09/2023, re-do left TCAR S/P laparotomy for ectopic (unsure if she had a salpingectomy) History of cholecystectomy Family History Mother TIA (transient ischemic attack) FHx: carotid endarterectomy Other No family history of adverse response to anesthesia Social History Smoking Status: Former smoker Second Hand Exposure: No; Do You Dip or Chew Tobacco: No; Hx Alcohol Use: No Hx Substance Use: No Preferred Language: [place] Communication Ability: Effective 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 Torch 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 Required: No Beliefs That Will Affect Care: None Current Living Situation: Family Current Living Situation Comment: lives with son Feels Safe at Home: Yes Safety Concerns: Feels Safe At This Time Assistive Devices: Walker Allergies Allergies Allergy/AdvReac Type Severity Reaction Status Date / Time No Known Allergies Allergy Verified 11/13/23 03:23 Home Meds Home Medications Medication Instructions Recorded Confirmed amlodipine 2.5 mg tablet 2.5 mg PO QAM 08/03/23 11/13/23 aspirin 81 mg tablet,delayed 81 mg PO QAM 08/03/23 11/13/23 release losartan 25 mg tablet 25 mg PO QAM 08/03/23 11/13/23 atorvastatin 40 mg tablet 40 mg PO QAM 08/08/23 11/13/23 insulin glargine 100 unit/mL (3 7 unit subcut QA 08/08/23 11/13/23 mL) subcutaneous pen (Basaglar KwikPen U-100 Insulin) metformin 500 mg 24 hr 500 mg PO BID 08/08/23 11/13/23 tablet,extended release (gastric retention) clopidogrel 75 mg tablet 75 mg PO QAM 08/15/23 11/13/23 Previous Rx's Medication Instructions Recorded lancets 33 gauge (YamliTouch Delica #100 ea 09/02/21 Lancets) blood sugar diagnostic (OneTouch #100 ea 09/03/21 Verio test strips) lancets 33 gauge (OneTouch Delica #100 ea 09/03/21 Plus Lancet) pen needle, diabetic 32 gauge x #50 ea 09/03/21" (Pen Needle) Results & Data (ED) Vital Signs Vital Signs - 24 hr 11/12/23 23:22 11/12/23 23:43 11/13/23 01:14 Temperature 36.4 C L Temperature Source Temporal Artery Scan Pulse Rate 81 Pulse Rate [Finger] 75 71 Respiratory Rate 16 20 19 Respiratory Effort / Characteristics Non-Labored Spontaneous Respiratory Depth Normal Respiratory Pattern Regular Blood Pressure 158/68 H Blood Pressure [Right Arm] 187/106 H 160/74 H Blood Pressure Mean 98 Blood Pressure Mean [Right Arm] 133 102 Pulse Oximetry 97 98 96 Oxygen Delivery Method Room Air Room Air Room Air Sepsis Recent Fever Within 48 Hours No Sepsis New/Unexplained Change in Mental Status N/A Sepsis Action Taken by Nursing No Action Required 11/13/23 02:01 11/13/23 02:24 11/13/23 03:00 Temperature Temperature Source Pulse Rate 62 62 Pulse Rate [Finger] Respiratory Rate 16 Respiratory Effort / Characteristics Respiratory Depth Respiratory Pattern Blood Pressure 143/95 H Blood Pressure [Right Arm] Blood Pressure Mean 111 Blood Pressure Mean [Right Arm] Pulse Oximetry 98 98 Oxygen Delivery Method Room Air Sepsis Recent Fever Within 48 Hours Sepsis New/Unexplained Change in Mental Status Sepsis Action Taken by Nursing 11/13/23 03:00 Temperature Temperature Source Pulse Rate Pulse Rate [Finger] 65 Respiratory Rate 16 Respiratory Effort / Characteristics Respiratory Depth Respiratory Pattern Blood Pressure Blood Pressure [Right Arm] 143/95 H Blood Pressure Mean Blood Pressure Mean [Right Arm] 111 Pulse Oximetry 95 Oxygen Delivery Method Room Air Sepsis Recent Fever Within 48 Hours Sepsis New/Unexplained Change in Mental Status Sepsis Action Taken by Nursing Laboratory Data 11/13/23 02:03 11/13/23 12:22 Lab Results 11/13/23 11/13/23 Range/Units 00:05 02:03 WBC 9.90 (4.8-10.8) K/ul RBC 3.72 L (4.20-5.40) M/uL Hgb 10.5 L (12.0-16.0) g/dl Hct 32.2 L (37.0-47.0) % MCV 86.6 (80.0-100.0) fL MCH 28.2 (25.0-34.0) pg MCHC 32.6 (32.0-36.0) g/dL RDW Std Deviation 41.1 (36.4-46.3) fL RDW Coeff of Bernie 13.1 (11.5-14.5) % Plt Count 411 H (130-400) K/uL MPV 9.9 (9.4-12.4) fL Immature Gran % (Auto) 0.3 % Neut % (Auto) 66.5 % Lymph % (Auto) 21.1 % Clare % (Auto) 8.4 % Eos % (Auto) 3.1 % Baso % (Auto) 0.6 % Neut # (Auto) 6.58 H (1.40-6.50) K/uL Lymph # (Auto) 2.09 (1.20-3.40) K/uL Clare # (Auto) 0.83 H (0.11-0.59) K/uL Eos # (Auto) 0.31 (0.00-0.50) K/uL Baso # (Auto) 0.06 (0.00-0.20) K/uL Immature Gran # (Auto) 0.03 (0.01-0.20) K/uL Sodium 123 L (136-145) mmol/L Potassium 4.8 (3.5-5.1) mmol/L Chloride 94 L (98-107) mmol/L Carbon Dioxide 20 L (21-32) mmol/L Anion Gap 9 (3-11) BUN 16 (6-23) mg/dl Creatinine 1.57 H (0.6-1.2) mg/dl Est Cr Clr Drug Dosing 33.5 ml/min Est GFR ( Amer) 37.3 ml/min Est GFR (Non-Af Amer) 32.1 ml/min BUN/Creatinine Ratio 10.2 (10-20) Glucose 109 H (70-99(Fasting)) mg/dl Osmolality 263 L (280-300) mOsm/kg Calcium 9.8 (8.6-10.3) mg/dl Magnesium 1.8 (1.7-2.4) mg/dl Total Bilirubin 0.5 (0.2-1.0) mg/dl AST 19 (13-39) U/L ALT 10 (7-52) U/L Alkaline Phosphatase 94 (34-104) U/L Total Protein 8.1 (6.0-8.3) gm/dl Albumin 4.5 (3.4-5.0) gm/dl Globulin 3.6 (2.5-4.0) gm/dl Albumin/Globulin Ratio 1.3 (0.9-2) Lipase 31 (11-82) U/L TSH 1.595 (0.300-4.500) uIu/ml Urine Color Yellow Urine Appearance Clear (Clear) Urine pH 6.0 (4.5-7.5) Ur Specific [place] 1.007 (1.000-1.030) Urine Protein Negative (Negative) Urine Glucose (UA) Negative (Negative) Urine Ketones Negative (Negative) Urine Blood Negative (Negative) Urine Nitrite Negative (Negative) Urine Bilirubin Negative (Negative) Urine Urobilinogen Negative (Negative) Ur Leukocyte Esterase 1+ H (Negative) Urine WBC (Auto) 0-5 (0-5) /hpf Urine RBC (Auto) 0-2 (0-2) /hpf U Hyaline Cast (Auto) 0-2 (0-2) /lpf U Epithel Cells (Auto) 3-5 H (0-2) /hpf Urine Bacteria (Auto) None Seen (None Seen) Urine Osmolality 184 L (500-800) mOsm/kg Ur Random Sodium 38 mmol/L Administered Medications Amlodipine Besylate (Amlodipine Besylate 5 Mg Tab) 5 mg PO [facility] Stop: 12/13/23 08:59 Last Admin: 11/13/23 09:14 Dose: 5 mg Documented By: TMP Aspirin (Aspirin 81 Mg Ectab) 81 mg PO [facility] Stop: 12/13/23 08:59 Last Admin: 11/13/23 09:14 Dose: 81 mg Documented By: TMP Atorvastatin Calcium (Atorvastatin 40 Mg Tab) 40 mg PO [facility] Stop: 12/13/23 08:59 Last Admin: 11/13/23 09:14 Dose: 40 mg Documented By: TMP Clopidogrel Bisulfate (Clopidogrel Bisulfate 75 Mg Tab) 75 mg PO [facility] Stop: 12/13/23 08:59 Last Admin: 11/13/23 09:14 Dose: 75 mg Documented By: TMP Heparin Sodium (Porcine) (Heparin Sod 5,000 Unit/0.5 Ml Vial) 5,000 units SQ Q8 [facility] Stop: 12/13/23 05:59 Last Admin: 11/13/23 13:01 Dose: 5,000 units Documented By: Admin: 11/13/23 06:07 Dose: 5,000 units Documented By: BRENDEN Cefepime HCl 2,000 mg/ Syringe 20 mls @ 5 mls/min IV Q12H [facility]; Protocol Stop: 11/23/23 15:59 Last Admin: 11/13/23 16:02 Dose: 5 mls/min Documented By: COLEMAN Insulin Aspart (Insulin Aspart Per Unit Charge) 0 units SC ACHS [facility] Stop: 12/13/23 05:41 Last Admin: 11/13/23 13:00 Dose: 1 units Documented By: COLEMAN Co-signed By: BASIL Admin: 11/13/23 06:09 Dose: Not Given Documented By: BRENDEN Discontinued Medications Sodium Chloride (Nss) 1,000 mls @ 999 mls/hr IV .Q1H1M ONE Stop: 11/13/23 03:45 Last Infusion: 11/13/23 03:47 Dose: Infused Documented By: Admin: 11/13/23 02:50 Dose: 999 mls/hr Documented By: SISSY Cefepime HCl (Maxipime) 2,000 mg in 20 mls @ 5 mls/min IV NOW STA; Protocol Stop: 11/13/23 04:13 Last Admin: 11/13/23 04:48 Dose: 5 mls/min Documented By: SONIDO Lorazepam (Lorazepam 1 Mg/1 Ml Syr Ed Inj Use) 0.5 mg IV ONE STA Stop: 11/13/23 01:58 Last Admin: 11/13/23 02:07 Dose: 0.5 mg Documented By: SONIDO Phenazopyridine HCl (Phenazopyridine Hcl 200 Mg Tab) 200 mg PO NOW STA Stop: 11/13/23 02:07 Last Admin: 11/13/23 02:12 Dose: 200 mg Documented By: SONIDO Imaging Data Radiologist's Impression: Chest X-Ray 11/13/23 03:21 XR chest 1V portable CLINICAL HISTORY: hyponatremia TECHNIQUE: Single frontal radiograph of the chest was obtained. Comparison: Comparison is made to chest radiograph 10/23/2023 FINDINGS: No lines and tubes are seen. Cardiomegaly is noted. The aortic arch is calcified. The lungs are clear. No evidence of pleural effusion or pneumothorax. IMPRESSION: No acute chest disease. ACT 112: Negative or not required by law. Electronically signed by: Rojas Huerta M.D. 11/13/2023 6:53 AM Abdomen/Pelvis CT 11/13/23 04:10 Exam(s): CT ABDOMEN + PELVIS Without Contrast EXAM: CT Abdomen and Pelvis Without Intravenous Contrast CLINICAL HISTORY: Reason for exam: abd pain, recurrent utis. TECHNIQUE: Axial computed tomography images of the abdomen and pelvis without intravenous contrast. CTDI is 24.01 mGy and DLP is 1117.68 mGy-cm. Automated exposure control was utilized for the study. A dose lowering technique was utilized adhering to the principles of ALARA. COMPARISON: No relevant prior studies available. FINDINGS: Limitations: Limited evaluation in the absence of contrast. Lung bases: Unremarkable. No mass. No consolidation. Mediastinum: Small esophageal hiatal hernia. ABDOMEN: Liver: Unremarkable. Gallbladder and bile ducts: Cholecystectomy changes. No ductal dilation. Pancreas: Unremarkable. No ductal dilation. Spleen: Unremarkable. No splenomegaly. Adrenals: Unremarkable. No mass. Kidneys and ureters: No evidence of radiopaque renal calculi or signs of collecting system dilatation. Stomach and bowel: Unremarkable. No obstruction. No mucosal thickening. PELVIS: Appendix: No findings to suggest acute appendicitis. Bladder: Unremarkable. No stones. Reproductive: Unremarkable as visualized. ABDOMEN and PELVIS: Intraperitoneal space: Unremarkable. No free air. No significant fluid collection. Bones/joints: Degenerative changes in the spine. No acute fracture. No dislocation. Soft tissues: Unremarkable. Vasculature: Atherosclerotic disease. No abdominal aortic aneurysm. Lymph nodes: Unremarkable. No enlarged lymph nodes. IMPRESSION: 1. Limited evaluation in the absence of contrast. 2. No evidence of radiopaque renal calculi or signs of collecting system dilatation. 3. No other acute findings. 4. Incidental findings as described. Electronically signed by: Alejo Shaw MD 11/13/23 06:11 AM Discharge Plan Visit Data Chief Complaint: Urinary Symptoms Stated Complaint: BURNING WITH URINATION, UTI ON ANTIBIOTICS ED Provider: Sharee García Discharge Problem: Acute hyponatremia, JOEL (acute kidney injury), Anxiety, Dysuria Patient Disposition: Admitted As Inpatient Discharge Instructions Interventions: ED Discharge Assessment Last Done: 11/13/23 04:58
[2023-11-13] MEDS ORDERED: amLODIPine BESYLATE 5 MG TAB PO SCH (09:00)
[2023-11-13] MEDS: CLOPIDOGREL BISULFATE 75 MG TAB PO SCH (09:14)
[2023-11-13] MEDS: amLODIPine BESYLATE 5 MG TAB PO SCH (09:14)
[2023-11-13] MEDS: ATORVASTATIN 40 MG TAB PO SCH (09:14)
[2023-11-13] MEDS: ASPIRIN 81 MG ECTAB PO SCH (09:14)
--- NOTE | 2023-11-13 15:51 | Hospitalist Progress Note ---
Date of Service November 13, 2023 Assessment & Plan (1) Hyponatremia: Plan: Hypovolemic hyponatremia ? Excessive fluid intake Vs ? Dehydration Patient admits to drinking a lot of water trying to " flush infection" to help with UTI Serum osmolality 263, urine osmolality 184 Normal TSH Patient received IV fluids in ED Sodium improved to 129 No change in mental status Monitor sodium closely Urinary tract infection Outpatient records reviewed Urine culture grew drug-resistant resistant Klebsiella aerogenes Was treated with cefuroxime and later with Bactrim as outpatient Urine culture pending Continue cefepime while hospitalized JOEL on CKD stage III Creatinine rise likely Bactrim related Avoid nephrotoxic agents as able Monitor renal function Received IV fluids Bladder scan as needed to monitor for any retention Hypertension Increase amlodipine to 5 mg daily Hold losartan for now Monitor BP Hyperlipidemia Continue Lipitor DM II HbA1c 6.4 Hold p.o. meds Continue insulin while hospitalized Monitor BGs Other chronic conditions TIA Peripheral vascular disease S/P surgery Past tobacco use Continue aspirin, Lipitor DVT Px: Heparin SQ CODE STATUS Full code Admission and Anticipated Discharge Date Admission Date: November 13, 2023 Subjective Patient is seen and examined at bedside States having increased urinary frequency, dysuria Denies any chest pain, dyspnea, hematuria, abdominal pain No other complaints Review of Systems Review of Systems: All systems reviewed & are unremarkable except as noted in Subjective Physical Exam Physical Exam: Physical Exam: Vitals signs as noted above General Appearance:Moderately built and nourished, no apparent distress Head: normocephalic, Atraumatic Eyes: normal inspection, EOMI Neck: supple, Trachea midline Respiratory/Chest: Normal breath sounds, CTA, No accessory muscle use Cardiovascular: S1, S2, No murmur Abdomen/GI:Soft, Non tender, Bowel sounds present Extremities/Musculoskeletal:normal inspection, no edema Neurologic/Psych:AAOX3, grossly no focal neurological deficits Skin: normal color, warm Results & Data Results & Data Vital Signs (Past 12 Hours) Vital Signs Temp Pulse Pulse Resp BP Pulse Ox O2 Del Method 11/13/23 15:48 36.6 C 62 16 121/73 98 Room Air 11/13/23 13:40 73 11/13/23 11:28 36.5 C 62 16 143/73 H 96 Room Air 11/13/23 07:43 36.8 C 63 16 137/73 97 Room Air 11/13/23 07:25 Room Air 11/13/23 07:21 65 11/13/23 05:29 36.4 C L 75 18 153/73 H 98 Room Air Laboratory Results Short CBC 11/13/23 Range/Units 02:03 WBC 9.90 (4.8-10.8) K/ul Hgb 10.5 L (12.0-16.0) g/dl Hct 32.2 L (37.0-47.0) % Plt Count 411 H (130-400) K/uL BMP 11/13/23 11/13/23 11/13/23 02:03 06:04 12:22 Sodium 123 L 126 L 129 L Potassium 4.8 Chloride 94 L Carbon Dioxide 20 L BUN 16 Creatinine 1.57 H Glucose 109 H Calcium 9.8 Liver Function 11/13/23 Range/Units 02:03 Total Bilirubin 0.5 (0.2-1.0) mg/dl AST 19 (13-39) U/L ALT 10 (7-52) U/L Alkaline Phosphatase 94 (34-104) U/L Albumin 4.5 (3.4-5.0) gm/dl Urine 11/13/23 Range/Units 00:05 Urine Color Yellow Urine Appearance Clear (Clear) Urine pH 6.0 (4.5-7.5) Ur Specific [place] 1.007 (1.000-1.030) Urine Protein Negative (Negative) Urine Glucose (UA) Negative (Negative)
[2023-11-13] MEDS: CEFEPIME 2,000 MG in SYRINGE 0 ML IV SCH (16:02)
[2023-11-13 16:03] LABS: Appearance Urine Clear (Clear); Bacteria Urine Automated None Seen (None Seen); Bilirubin Urine Negative (Negative); Blood Urine Negative (Negative); Cast Urine Automated 0-2 /lpf (0-2); Color Urine Dark Yellow; Epithelial Cell Urine Auto 0-2 /hpf (0-2); Glucose Urine UA Negative (Negative); Ketones Urine Negative (Negative); Leukocyte Esterase Urine Negative (Negative); Nitrite Urine Positive (Negative); Protein Urine Negative (Negative); RBC Urine Automated 0-2 /hpf (0-2); Specific Gravity Urine 1.007 (1.000-1.030); Urobilinogen Urine Negative (Negative); WBC Urine Automated 0-5 /hpf (0-5); pH Urine 5.5 (4.5-7.5)
[2023-11-13] MEDS: PHENAZOPYRIDINE HCL 100 MG TAB PO PRN (21:08)
[2023-11-13] MEDS: hydrOXYzine HCl 10 MG TAB PO PRN (21:08)
[2023-11-13] MEDS: MELATONIN 3 MG TAB PO PRN (21:08)
[2023-11-14 07:24] LABS: Basophils # (auto) 0.07 K/uL (0.00-0.20); Basophils % (auto) 1.1 %; Eosinophils # (auto) 0.45 K/uL (0.00-0.50); Eosinophils % (auto) 6.8 %; Hematocrit (blood only) 31.6 % (37.0-47.0); Hemoglobin 10.2 g/dl (12.0-16.0); Immature Granulocytes # (auto) 0.03 K/uL (0.01-0.20); Immature Granulocytes % (auto) 0.5 %; Lymphocytes # (auto) 1.84 K/uL (1.20-3.40); Mean Corpuscular Hemoglobin 28.9 pg (25.0-34.0); Mean Corpuscular Hgb Conc 32.3 g/dL (32.0-36.0); Mean Corpuscular Volume 89.5 fL (80.0-100.0); Monocytes # (auto) 0.77 K/uL (0.11-0.59); Monocytes % (auto) 11.7 %; Neutrophils # (auto) 3.41 K/uL (1.40-6.50); Neutrophils % (auto) 51.9 %; Platelet Count 387 K/uL (130-400); RDW Coefficient of Variation 13.5 % (11.5-14.5); RDW Standard Deviation 44.3 fL (36.4-46.3); Red Blood Count 3.53 M/uL (4.20-5.40); White Blood Count 6.57 K/ul (4.8-10.8)
[2023-11-14 07:41] LABS: BUN Creatinine Ratio 9.5 (10-20); Calcium 9.2 mg/dl (8.6-10.3); Creatinine Clr Calc Pharmacy 30.4 ml/min; Est GFR (Non-African American) 31.9 ml/min; Potassium 4.9 mmol/L (3.5-5.1)
[2023-11-14] MEDS: LACTATED RINGER'S 1,000 ML IV ONE (10:06)
--- NOTE | 2023-11-14 17:16 | Hospitalist Progress Note ---
Date of Service November 14, 2023 Assessment & Plan (1) Hyponatremia: Plan: Hypovolemic hyponatremia ? Excessive fluid intake Vs ? Dehydration Patient admits to drinking a lot of water trying to " flush infection" to help with UTI Serum osmolality 263, urine osmolality 184 Normal TSH Patient received IV fluids in ED No change in mental status Monitor sodium closely Sodium 132 today Urinary tract infection Outpatient records reviewed Urine culture grew drug-resistant resistant Klebsiella aerogenes Was treated with cefuroxime and later with Bactrim as outpatient Urine culture pending Continue cefepime while hospitalized Will titrate antibiotics based on culture results JOEL on CKD stage III Creatinine rise likely Bactrim related Avoid nephrotoxic agents as able Monitor renal function IV fluids as needed Bladder scan as needed to monitor for any retention Creatinine 1.5 today Hypertension Increase amlodipine to 5 mg daily Hold losartan for now Monitor BP Blood pressure better today Hyperlipidemia Continue Lipitor DM II HbA1c 6.4 Hold p.o. meds Continue insulin while hospitalized Monitor BGs Other chronic conditions TIA Peripheral vascular disease S/P surgery Past tobacco use Continue aspirin, Lipitor DVT Px: Heparin SQ CODE STATUS Full code Admission and Anticipated Discharge Date Admission Date: November 13, 2023 Subjective Patient is seen and examined at bedside Dysuria slowly improving Still has some urinary frequency No new complaints Denies any chest pain, dyspnea, hematuria, abdominal pain Review of Systems Review of Systems: All systems reviewed & are unremarkable except as noted in Subjective Physical Exam Physical Exam: Physical Exam: Vitals signs as noted above General Appearance:Moderately built and nourished, no apparent distress Head: normocephalic, Atraumatic Eyes: normal inspection, EOMI Neck: supple, Trachea midline Respiratory/Chest: Normal breath sounds, CTA, No accessory muscle use Cardiovascular: S1, S2, No murmur Abdomen/GI:Soft, Non tender, Bowel sounds present Extremities/Musculoskeletal:normal inspection, no edema Neurologic/Psych:AAOX3, grossly no focal neurological deficits Skin: normal color, warm Results & Data Results & Data Vital Signs (Past 12 Hours) Vital Signs Temp Pulse Pulse Resp BP Pulse Ox O2 Del Method 11/14/23 15:31 71 11/14/23 15:26 36.8 C 65 20 126/54 L 96 Room Air 11/14/23 11:17 36.8 C 68 18 145/76 H 98 Room Air 11/14/23 08:50 Room Air 11/14/23 07:47 36.7 C 66 18 116/73 95 Room Air 11/14/23 07:14 60 Laboratory Results Short CBC 11/14/23 Range/Units 06:56 WBC 6.57 (4.8-10.8) K/ul Hgb 10.2 L (12.0-16.0) g/dl Hct 31.6 L (37.0-47.0) % Plt Count 387 (130-400) K/uL BMP 11/14/23 06:56 Sodium 132 L Potassium 4.9 Chloride 102 Carbon Dioxide 24 BUN 15 Creatinine 1.58 H Glucose 109 H Calcium 9.2
[2023-11-15 06:04] LABS: Hematocrit (blood only) 33.5 % (37.0-47.0); Hemoglobin 10.7 g/dl (12.0-16.0); Mean Corpuscular Hgb Conc 31.9 g/dL (32.0-36.0); Mean Corpuscular Volume 90.8 fL (80.0-100.0); Mean Platelet Volume 9.9 fL (9.4-12.4); Platelet Count 383 K/uL (130-400); RDW Coefficient of Variation 13.5 % (11.5-14.5); RDW Standard Deviation 44.4 fL (36.4-46.3); Red Blood Count 3.69 M/uL (4.20-5.40)
[2023-11-15 06:15] LABS: BUN Creatinine Ratio 13.6 (10-20); Calcium 9.5 mg/dl (8.6-10.3); Creatinine Clr Calc Pharmacy 33.7 ml/min; Est GFR (African American) 38.1 ml/min; Est GFR (Non-African American) 32.9 ml/min; Potassium 4.4 mmol/L (3.5-5.1)
--- NOTE | 2023-11-15 13:17 | CT Scan Report ---
CT OF THE HEAD WITHOUT CONTRAST CLINICAL HISTORY: Altered mental status. COMPARISON STUDY: Head CT and CTA of the head October 23, 2023. MRI of the brain October 24, 2023. CT DOSE: 1094.1 mGy.cm TECHNIQUE: Helical axial images of the head were obtained without IV contrast. Automated exposure con trol was utilized for the study. A dose lowering technique was utilized adhering to the principles o f ALARA. FINDINGS: No acute intracranial hemorrhage, midline shift or mass effect is present. Mild white matte r hypodensities are unchanged and favor small vessel disease. A 1.5 cm hyperdense extra-axial lesion along the inferior aspect of the torcula is unchanged from prior exams. The ventricular system is unr emarkable. The basal cisterns are patent. No extra-axial collections are present. There are no findin gs to suggest acute dural sinus thrombosis or acute territorial infarct. No significant calvarial abn ormalities are present. Visualized portions of the sinuses and mastoid air cells are clear. IMPRESSION: 1. No acute intracranial findings. 2. No change in a 1.5 cm hyperdense extra-axial lesion along the inferior aspect of the torcula sugge stive of a meningioma. ACT 112: Negative or not required by law. Electronically signed by: Eric You M.D. 11/15/2023 1:16 PM
--- NOTE | 2023-11-15 15:30 | Hospitalist Progress Note ---
Date of Service November 15, 2023 Assessment & Plan (1) Hyponatremia: Plan: Hypovolemic hyponatremia ? Excessive fluid intake Vs ? Dehydration Patient admits to drinking a lot of water trying to " flush infection" to help with UTI Serum osmolality 263, urine osmolality 184 Normal TSH Patient received IV fluids in ED No change in mental status Monitor sodium closely Sodium 131 today Delirium Possible metabolic encephalopathy On November 15, 2023; patient appeared to be slightly disoriented at times. She needed frequent reorientation. CT head without contrast did not show any acute finding Continue delirium precaution Frequent reorientation Discontinue cefepime which can contribute to encephalopathy; switched over to ciprofloxacin Urinary tract infection Outpatient records reviewed Urine culture grew drug-resistant resistant Klebsiella aerogenes Was treated with cefuroxime and later with Bactrim as outpatient Urine culture- no growth in patient Discontinue cefepime as it can contribute to encephalopathy started on ciprofloxacin JOEL on CKD stage III Creatinine rise likely Bactrim related Avoid nephrotoxic agents as able Monitor renal function IV fluids as needed Bladder scan as needed to monitor for any retention Creatinine 1.5 today Hypertension Increase amlodipine to 5 mg daily Hold losartan for now Monitor BP Hyperlipidemia Continue Lipitor DM II HbA1c 6.4 Hold p.o. meds Continue insulin while hospitalized Monitor BGs Other chronic conditions TIA Peripheral vascular disease S/P surgery Past tobacco use Continue aspirin, Lipitor DVT Px: Heparin SQ CODE STATUS Full code Discussed with patient's son at bedside. Answer questions/queries. Time spent evaluating patient, direct bedside care, chart review, placing orders, interpretation of diagnostic studies, discussion with consultants, patient, and family members, as well as other required patient management activities is 50 minutes Please note the above document was generated using voice recognition software. It may contain grammatical, syntax or spelling errors. Any formal questions or concerns about the content, text or information contained within the body of this dictation should be directly addressed to the provider for clarification Admission and Anticipated Discharge Date Admission Date: November 13, 2023 Subjective Patient seen multiple times during the day. Patient appeared to be slightly more confused today. She was requiring frequent reorientation. She was well-oriented to her name, place and date of ; was able to tell her address as well. She denies any visual changes, weakness/numbness of any body part, abnormal body movements. Review of Systems Review of Systems: All systems reviewed & are unremarkable except as noted in Subjective Physical Exam Physical Exam: Constitutional: Alert oriented x 3; needing frequent reorientation. Not in any distress. Respiratory: normal respiratory effort, lungs clear to auscultation, no wheeze, rales, rhonchi. Normal insp/exp effort, no accessory muscle use Cardiovascular: RRR, no murmur, no edema Vessels: no JVD or carotid bruit Chest: normal inspection of chest Abdomen: normal bowel sounds, soft, nontender, no hepatosplenomegaly Musculoskeletal: no cyanosis or clubbing, extremities motor strength 5/5 Skin: no rashes, warm and dry normal turgor Neurologic: PERRL, EOMI, accommodation nl, no face palsy, no dysarthria CN's II- XI intact bilaterally and moves all extremities Psychiatric: A+Ox3, euthymic affect Results & Data Results & Data Vital Signs (Past 12 Hours) Vital Signs Temp Pulse Pulse Resp BP Pulse Ox O2 Del Method 11/15/23 14:03 77 11/15/23 11:00 36.5 C 63 20 139/60 98 Room Air 11/15/23 07:40 36.8 C 64 20 130/77 98 Room Air 11/15/23 07:30 59 L
[2023-11-15] MEDS: SODIUM CHLORIDE 0.9% 500 ML IV SCH (15:58)
[2023-11-15] MEDS: CIPROFLOXACIN 500 MG TAB PO SCH (21:30)
[2023-11-16 06:27] LABS: Basophils # (auto) 0.05 K/uL (0.00-0.20); Basophils % (auto) 0.7 %; Eosinophils # (auto) 0.48 K/uL (0.00-0.50); Hematocrit (blood only) 32.2 % (37.0-47.0); Hemoglobin 10.2 g/dl (12.0-16.0); Immature Granulocytes # (auto) 0.02 K/uL (0.01-0.20); Immature Granulocytes % (auto) 0.3 %; Lymphocytes % (auto) 26.3 %; Mean Corpuscular Hemoglobin 28.6 pg (25.0-34.0); Mean Corpuscular Hgb Conc 31.7 g/dL (32.0-36.0); Mean Corpuscular Volume 90.2 fL (80.0-100.0); Mean Platelet Volume 10.1 fL (9.4-12.4); Monocytes # (auto) 0.71 K/uL (0.11-0.59); Monocytes % (auto) 10.4 %; Neutrophils # (auto) 3.78 K/uL (1.40-6.50); Neutrophils % (auto) 55.3 %; Platelet Count 367 K/uL (130-400); RDW Coefficient of Variation 13.6 % (11.5-14.5); RDW Standard Deviation 45.1 fL (36.4-46.3); Red Blood Count 3.57 M/uL (4.20-5.40); White Blood Count 6.84 K/ul (4.8-10.8)
[2023-11-16 06:38] LABS: BUN Creatinine Ratio 13.1 (10-20); Calcium 9.2 mg/dl (8.6-10.3); Creatinine Clr Calc Pharmacy 42.9 ml/min; Est GFR (African American) 50.5 ml/min; Est GFR (Non-African American) 43.6 ml/min; Potassium 4.3 mmol/L (3.5-5.1)
--- NOTE | 2023-11-16 15:30 | Discharge Summary ---
Date of Service November 16, 2023 Admission HPI Per Admitting Provider History obtained from patient and records. Medical history significant for TIA, PVD status post surgery, hypertension, hyperlipidemia, DM2 insulin requiring, CRI (baseline creatinine 1.4), recurrent UTIs, meningioma, past tobacco abuse. Recent confinement last month for TIA symptoms and bilateral carotid artery disease. Patient underwent redo procedure for previous left TCAR. Right TCAR scheduled for end of the month. Few days after leaving hospital, she experienced dysuria symptoms. No fever, no chills. Patient seen at PCPs office 2 weeks ago. Patient initially prescribed cefuroxime. Final urine CS grew ceftriaxone and Zosyn resistant Klebsiella aerogenes. Patient switched to Bactrim. Poor appetite, nausea symptoms with persistent bladder discomfort despite compliance with Bactrim. No hematuria. No chest pain, no SOB. Not sleeping a lot, admits to increased anxiety with health issues. Denies inordinate water intake. Denies suicidality. Patient consulted ER for evaluation. 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 Respiratory: normal respiratory effort, lungs clear to auscultation, no wheeze, rales, rhonchi. Normal insp/exp effort, no accessory muscle use Cardiovascular: RRR, no murmur, no edema Vessels: no JVD or carotid bruit Chest: normal inspection of chest Abdomen: normal bowel sounds, soft, nontender, no hepatosplenomegaly Musculoskeletal: no cyanosis or clubbing, extremities motor strength 5/5 Skin: no rashes, warm and dry normal turgor Neurologic: PERRL, EOMI, accommodation nl, no face palsy, no dysarthria CN's II- XI intact bilaterally and moves all extremities Psychiatric: A+Ox3, euthymic affect Discharge Data Allergies Allergy/AdvReac Type Severity Reaction Status Date / Time No Known Allergies Allergy Verified 11/13/23 03:23 Consultations 11/13/23 03:10 ED Decision to Admit Stat 11/13/23 17:03 Consult Behavioral Health Liaison Routine Ordered Studies 11/13/23 04:10 CT Abd and Pelvis [CT abd pelvis wo con] Stat 11/15/23 12:02 CT head/brain wo con Stat Hospital Course (1) Hyponatremia: Hypovolemic hyponatremia likely due to Excessive fluid intake Patient admits to drinking a lot of water trying to " flush infection" to help with UTI Serum osmolality 263, urine osmolality 184 Normal TSH Patient received IV fluids in ED No change in mental status Monitor sodium closely Sodium 136 at discharge Delirium Possible metabolic encephalopathy On November 15, 2023; patient appeared to be slightly disoriented at times. She needed frequent reorientation. CT head without contrast did not show any acute finding Continue delirium precaution Frequent reorientation Discontinue cefepime which can contribute to encephalopathy; switched over to ciprofloxacin Re-evaluated on November 16, 2023; patient mentation had improved; she was answering questions appropriately. I discussed with her son at bedside about patient's mentation. He feels that patient is very close to her baseline and has improved significantly. I offered continued inpatient stay for monitoring, MRI brain and neurology consult. However, her son feels that she has improved significantly and would like to take her home. Urinary tract infection Outpatient records reviewed Urine culture grew drug-resistant resistant Klebsiella aerogenes Was treated with cefuroxime and later with Bactrim as outpatient Urine culture- no growth in patient Discontinue cefepime as it can contribute to encephalopathy Discharged on ciprofloxacin for 2 more days. JOEL on CKD stage III Creatinine rise likely Bactrim related Avoid nephrotoxic agents as able Monitor renal function IV fluids as needed Bladder scan as needed to monitor for any retention Creatinine 1.2 at discharge Please note the above document was generated using voice recognition software. It may contain grammatical, syntax or spelling errors. Any formal questions or concerns about the content, text or information contained within the body of this dictation should be directly addressed to the provider for clarification Total Time Total Time Spent Total Time Spent (In Minutes): 35 Total Time Includes: Examination of the Patient, Discharge Planning, Medication Reconciliation, Communication With Other Providers and Other Discharge Plan Discharge Items Patient Disposition: Home - Self-Care Reason For Visit: HYPONATREMIA, COMP UTI Discharge Diagnosis: Hyponatremia Activity: Resume your previous activity Non-emergency contact: Primary Care Provider Call non-emergency contact if: you have any medication questions and your symptoms worsen Follow-up/Referrals: Teofilo Mcintyre MD [Surgeon] - 12/01/23 11:20 am (Date & Time 12/01/2023 11:20 AM Provider Teofilo Mcintyre MD Department Nephrology, [facility] ) Torie Mcintyre MD [Primary Care Provider] - 11/21/23 11:00 am (Date & Time 11/21/2023 11:00 AM Provider Torie Mcintyre MD Department General Internal Medicine [facility] ) Diet: Regular Fluids: 1800ml (7 cups) Addtl Attending Provider Instructions: You were admitted to the hospital due to low sodium levels. The likely cause for the sodium level to be low is increase fluid intake. Please limit your fluid intake to 1800 cc ( or 7 cups). This includes tea, water, soda and coffee. Please follow-up with your primary care doctor and Nephrology as scheduled above. You are prescribed ciprofloxacin 500 mg twice a day for 2 days Pending Studies at Discharge: No Stand-Alone Forms: [facility] [employer], Smoking Cessation Medications and DC Order Prescriptions: New ciprofloxacin HCl 500 mg Tablet 500 mg PO BID 2 Days Qty: 4 0RF Continued (DME) lancets [OneTouch Delica Lancets] 33 gauge misc See Rx Instructions .Route Qty: 100 0RF Rx Instructions: As directed (DME) lancets [OneTouch Delica Plus Lancet] 33 gauge misc See Rx Instructions .Route Qty: 100 0RF Rx Instructions: TID (DME) pen needle, diabetic [Pen Needle] 32 gauge x 5/32" needle See Rx Instructions .Route Qty: 50 0RF Rx Instructions: once daily (DME) OneTouch Verio test strips Strip See Rx Instructions .Route Qty: 100 0RF Rx Instructions: tid amlodipine 2.5 mg Tablet 2.5 mg PO QAM aspirin 81 mg Tablet,Delayed Release (Dr/Ec) 81 mg PO QAM Rx Instructions: otc unable to verify losartan 25 mg Tablet 25 mg PO QAM metformin 500 mg tablet,ER tabitha.retention 24 hr 500 mg PO BID Rx Instructions: original: 500 mg po bid With Dinner insulin glargine [Basaglar KwikPen U-100 Insulin] 100 unit/mL (3 mL) insulin pen 7 unit subcut QAM Rx Instructions: original: 7 units subcut qam per pharmacy 13 units atorvastatin 40 mg Tablet 40 mg PO QAM clopidogrel 75 mg Tablet 75 mg PO QAM Discharge Orders: Discharge Order (Routine); Ordered 11/16/23 Ordered By: Nj Schumacher Admission Data Admit Date/Time: 11/13/23 04:13 Attending Provider: Nj Schumacher Admit Provider: Nabil Latham Primary Care Provider: Troie Mcintyre Other Providers: Nabil Latham Other Interventions: Discharge Summary Assessment (RN) Last Done: 11/16/23 11:56
== END 2023-11-16 13:17 | disposition home or self-care (01) | DRG 640 ==
LOC: ED 23:14 → SUATTDRO 11-13 04:13 → 2N 11-13 04:13

== ENCOUNTER 2023-12-27 05:46 | Inpatient (IN) ==
--- NOTE | 2023-11-09 09:22 | Anesthesiology Consultation ---
Date of Service November 09, 2023 Assessment & Plan (1) Encounter for pre-operative examination: Chart Review Chart Review: Acceptable Risk for Surgery and Patient NOT seen in Pre Admission Testing Consults Requested none Additional Notes patient with history of L TCAR x2, 08/29/23 and 10/24/23 History Surgery Operation Date: 11/22/23 07:30 Proposed Procedures p Right Transcarotid Artery Revascularization - Ramakrishna Haddad MD Height/Weight Height: 5 ft 7 in Weight: 75.75 kg Allergies Allergy/AdvReac Type Severity Reaction Status Date / Time No Known Allergies Allergy Verified 11/09/23 08:00 Medications Home Medications Medication Instructions Recorded Confirmed Last Taken lancets 33 gauge (OneTouch Delica #100 ea 09/02/21 10/24/23 Unknown Lancets) blood sugar diagnostic (OneTouch #100 ea 09/03/21 10/24/23 Unknown Verio test strips) lancets 33 gauge (OneTouch Delica #100 ea 09/03/21 10/24/23 Unknown Plus Lancet) pen needle, diabetic 32 gauge x #50 ea 09/03/21 10/24/23 Unknown 5/32" (Pen Needle) amlodipine 2.5 mg tablet 2.5 mg PO QAM 08/03/23 11/09/23 08/29/23 04:45 aspirin 81 mg tablet,delayed 81 mg PO QAM 08/03/23 11/09/23 08/29/23 04:45 release losartan 25 mg tablet 25 mg PO QAM 08/03/23 11/09/23 08/28/23 10:15 atorvastatin 40 mg tablet 40 mg PO QAM 08/08/23 11/09/23 08/29/23 04:45 insulin glargine 100 unit/mL (3 7 unit subcut QA 08/08/23 11/09/23 08/28/23 10:15 mL) subcutaneous pen (Basaglar KwikPen U-100 Insulin) metformin 500 mg 24 hr 500 mg PO BID 08/08/23 11/09/23 08/28/23 18:00 tablet,extended release (gastric retention) clopidogrel 75 mg tablet 75 mg PO QAM 08/15/23 11/09/23 08/29/23 04:45 Past Medical History Medical History History of cardiac monitoring following [place] ER visit on 10/23/23, "patches placed" for 2 weeks by PCP due to ER d/c instructions Hx: UTI (urinary tract infection) 11/05/23 started abx, will complete abx by DOS; symptoms are "getting a little better" Stroke-like symptoms hx 10/23/23, went [place] ER, "said it was a possible TIA, no residual effects"; had re-do TCAR left side 3 days later Pseudohyponatremia Type 2 diabetes mellitus with hyperosmolar hyperglycemic state (HHS) Carotid artery disease Hx of ectopic High cholesterol HTN (hypertension) CKD (chronic kidney disease) Stage 3 Follows with [facility] nephrology Past Family History Family History Mother TIA (transient ischemic attack) FHx: carotid endarterectomy Other No family history of adverse response to anesthesia Past Surgical History Surgical History History of transcarotid artery revascularization (TCAR) 07/2023, left 09/2023, re-do left TCAR S/P laparotomy for ectopic (unsure if she had a salpingectomy) History of cholecystectomy Social History Smoking Status: Former smoker tobacco type: cigarettes Do You Dip or Chew Tobacco: No Smoking End Date: 2021 Hx Alcohol Use: Yes alcohol intake frequency: holidays/special occasions only Hx Substance Use: No substance use type: does not use Testing Electrocardiogram Date: 10/23/23 Findings: + NSR @ Echocardiogram Date: 10/24/23 EF: 55-60 LV Function: normal Other Findings: + LVH
[~2023-12-27 05:46] MED LIST: CEFAZOLIN 2,000 MG/15 ML SYR IV SCH; LACTATED RINGER'S 1,000 ML BAG IV SCH
[2023-12-27] MEDS: LACTATED RINGER'S 1,000 ML BAG IV SCH (06:34)
[2023-12-27] MEDS ORDERED: MIDAZOLAM HCL 1 MG/ML 2ML VIAL ONE (06:58)
[2023-12-27] MEDS ORDERED: fentaNYL citrate PF 100 MCG/2 ML VIAL ONE (06:58)
[2023-12-27] MEDS ORDERED: DEXAMETHASONE SOD INJ 4 MG/ML VIAL ONE (06:58)
[2023-12-27] MEDS ORDERED: LIDOCAINE 2% 2 ML VIAL/AMP(20MG/ML) INFIL ONE ×2 (06:58→06:59)
[2023-12-27] MEDS ORDERED: PROPOFOL IV EMULSION 10 MG/ML 20 ML VIAL IV ONE ×2 (06:58→08:38)
[2023-12-27] MEDS ORDERED: ONDANSETRON INJ 2 MG/ML 2 ML VIAL ONE (06:58)
[2023-12-27] MEDS ORDERED: ROCURONIUM BROMIDE 10 MG/ML 5 ML VIAL IV ONE ×5 (06:59)
[2023-12-27] MEDS ORDERED: PHENYLEPHRINE HCL 10 MG/ML VIAL ONE (07:14)
[2023-12-27] MEDS ORDERED: HEPARIN SOD (PORCINE) 1000 UNIT/ML ONE (07:29)
[2023-12-27] MEDS ORDERED: PROTAMINE SULFATE 10 MG/ML 5 ML VIAL IV ONE ×2 (07:30→09:08)
--- NOTE | 2023-12-27 07:32 | History & Physical Report ---
Date of Service December 27, 2023 History of Present Illness Chief Complaint: right internal carotid artery stenosis Primary Care Provider: Torie Mcintyre MD Subjective I had the pleasure of seeing Liv today for follow-up. As you know she is a 73-year-old female who had a left TCAR done in the past. She was to have a left TCAR done when she developed a UTI and treated with cefepime. She ended up with encephalopathy from the cefepime. Once the antibiotic was stopped her mentation cleared up completely and she is back to baseline. She is here today to schedule for her right TCAR. She has no complaints of cerebrovascular insufficiency. Objective Vitals & Measurements HR: 82 (Monitored) BP: 146/76 SpO2: 98% Physical Exam On exam patient is awake alert and oriented x 3. He is in no apparent distress. Vitals are +2 bilaterally. Neurologic exam grossly intact motor and sensory function. A blood pressure 146/76. Left TCAR incision is healed nicely. Lungs are clear. Heart has a RRR. Abdominal exam is neg. Assessment/Plan 1. Carotid stenosis, bilateral At this point we will go ahead and schedule for right TCAR. She understands the risks options benefits. These are documented in the consent form. She is agreeable to go ahead with the procedure. Thank you very much for letting us participate in the care of this patient. Sincerely, Sanjana Haddad MD Signature Line Electronic Signature on File Ramakrishna Haddad MD Author Signature Dt/Tm: 11/27/2023 03:28 PM Rotary Driller Helper Gerardo Baxter [facility] [place], [address] [place], [place] [address] Result Type: .Outpt Ltr Date of Service: November 27, 2023 15:25 EDT Authorization Status: Final Subject: Follow Up Visit Author or Import Date: MD Haddad Eugene J on November 27, 2023 15:28 EDT Verified By: MD Haddad Eugene J on November 27, 2023 15:28 EDT Encounter info: [id number], [facility], Clinic, 11/27/2023 - 11/27/2023 Allergies Allergy/AdvReac Type Severity Reaction Status Date / Time cefepime Allergy Severe delirium, Verified 12/27/23 06:09 confusion, hyponatremia Home Medications Medication Instructions Recorded Confirmed Type lancets 33 gauge (OneTouch Delica #100 ea 09/02/21 11/13/23 Rx Lancets) blood sugar diagnostic (OneTouch #100 ea 09/03/21 11/13/23 Rx Verio test strips) lancets 33 gauge (OneTouch Delica #100 ea 09/03/21 11/13/23 Rx Plus Lancet) pen needle, diabetic 32 gauge x #50 ea 09/03/21 11/13/23 Rx 5/32" (Pen Needle) amlodipine 2.5 mg tablet 2.5 mg PO QAM 08/03/23 12/27/23 History aspirin 81 mg tablet,delayed 81 mg PO QAM 08/03/23 12/27/23 History release losartan 25 mg tablet 25 mg PO QAM 08/03/23 12/27/23 History atorvastatin 40 mg tablet 40 mg PO QAM 08/08/23 12/27/23 History insulin glargine 100 unit/mL (3 7 unit subcut QA 08/08/23 12/27/23 History mL) subcutaneous pen (Basaglar KwikPen U-100 Insulin) metformin 500 mg 24 hr 500 mg PO BID 08/08/23 12/27/23 History tablet,extended release (gastric retention) clopidogrel 75 mg tablet 75 mg PO QAM 08/15/23 12/27/23 History conjugated estrogens 0.625 mg/gram 0.625 mg vaginal 2XWK 12/13/23 12/27/23 History vaginal cream (Premarin) Past Med/Surg History Problem List Dysuria (Acute) Anxiety (Acute) JOEL (acute kidney injury) (Acute) Acute hyponatremia (Acute) Stenosis of left internal carotid artery Stroke-like symptoms (Acute) Bilateral carotid artery stenosis Tobacco abuse Hypertension Weakness (Acute) JOEL (acute kidney injury) (Acute) Acute dehydration (Acute) Acute hyperkalemia (Acute) HHNC (hyperglycemic hyperosmolar nonketotic coma) (Acute) Medical History Diabetes mellitus, type 2 IDDM Hyponatremia History of cardiac monitoring following [place] ER visit on 10/23/23, "patches placed" for 2 weeks by PCP due to ER d/c instructions Hx: UTI (urinary tract infection) 11/05/23 - treated with Cefepime orally, pt developed hyponatremia and delirium and treated at [facility] inpatient - resolved at this time. Stroke-like symptoms hx 10/23/23, went [place] ER, "said it was a possible TIA, no residual effects"; had re-do TCAR left side 3 days later Pseudohyponatremia Carotid artery disease Hx of ectopic High cholesterol HTN (hypertension) CKD (chronic kidney disease) Stage 3 Follows with [facility] nephrology Surgical History History of transcarotid artery revascularization (TCAR) 07/2023, left 09/2023, re-do left TCAR S/P laparotomy for ectopic (unsure if she had a salpingectomy) History of cholecystectomy Family History Mother TIA (transient ischemic attack) FHx: carotid endarterectomy Other No family history of adverse response to anesthesia Social History Smoking Status: Former smoker Tobacco Type: Cigarettes Smoking End Date: 2021; Second Hand Exposure: No; Do You Dip or Chew Tobacco: No; Tobacco Cessation Education Requested by Patient: No Hx Alcohol Use: No Hx Substance Use: No Preferred Language: Bengali Communication Ability: Effective Technical Sales Advisor Required: No Beliefs That Will Affect Care: None Current Living Situation: Family Current Living Situation Comment: lives with son Other Information That Helps Us Care for You: No Feels Safe at Home: Yes Safety Concerns: Feels Safe At This Time Assistive Devices: Walker Review of Systems All systems reviewed & are unremarkable except as noted in HPI & below Results & Data Vital Signs (Past 12 Hours) Vital Signs Temp Pulse Resp BP BP Pulse Ox O2 Del Method 12/27/23 06:26 175/96 H 165/92 H 12/27/23 06:12 36.6 C 82 18 138/107 H 188/95 H 97 Room Air Code Status & VTE Plan VTE Prophylaxis Plan VTE Prophylaxis will be ordered: Yes
[2023-12-27] MEDS ORDERED: ATROPINE SULFATE 0.1 MG/ML 10ML SYR IV PRN (07:59)
[2023-12-27] MEDS ORDERED: HYDROmorphone INJ 1 MG/ML SYRINGE IV PRN (07:59)
[2023-12-27] MEDS ORDERED: ePHEDrine sulfate 50 MG/ML AMP IV PRN (07:59)
[2023-12-27] MEDS ORDERED: fentaNYL citrate PF 100 MCG/2 ML VIAL IV PRN (07:59)
[2023-12-27] MEDS ORDERED: LABETALOL HCL IV 5 MG/ML 20ML IV PRN (07:59)
[2023-12-27] MEDS ORDERED: ONDANSETRON INJ 2 MG/ML 2 ML VIAL IV PRN (07:59)
[2023-12-27] MEDS: CEFAZOLIN 2,000 MG/15 ML SYR IV SCH (08:04)
[2023-12-27] MEDS ORDERED: ePHEDrine sulfate 50 MG/5 ML SYR ONE (08:28)
[2023-12-27] MEDS ORDERED: GLYCOPYRROLATE 0.2 MG/ML VIAL ONE (08:31)
[2023-12-27] MEDS ORDERED: ePHEDrine sulfate 50 MG/ML AMP ONE (09:04)
[2023-12-27] MEDS: VISIPAQUE IV ONE (09:13)
[2023-12-27] MEDS ORDERED: SUGAMMADEX SODIUM 200 MG/2 ML VIAL IV ONE (09:14)
[2023-12-27] MEDS: ceFAZolin 330 MG/ML 1 GM VIAL ONE (09:15)
[2023-12-27] MEDS: GELATIN SPONGE SZ 100 ONE (09:15)
[2023-12-27] MEDS: THROMBIN FOR SOLN 20000 UNIT KIT ONE (09:15)
[2023-12-27] MEDS: BUPIVACAINE/EPINEPHRINE 0.5% MPF 1:200,000 30 ML VIAL ONE (09:28)
--- NOTE | 2023-12-27 09:28 | Procedure Note ---
Angiogram Post Procedure Fluoroscopy Time (minutes): 2.6 Radiation (mGy): 16 Contrast: 9 Post Operative Report Pre & Post Diagnosis Operation Date: 12/27/23 08:00 Pre-Op Diagnosis: Right Carotid Artery Stenosis Post-Op Diagnosis: Right Carotid Artery Stenosis I identified the patient and participated in the time-out.: Yes Procedure Operation Date: 12/27/23 08:00 Actual Procedures p Right Transcarotid Artery Revascularization(Right), Ultrasound localization of left common femoral vein - Ramakrishna Haddad MD Surgeon Ramakrishna Haddad MD Balance Recesser Rani,PAC Estimated Blood Loss 20 Findings Consistent with Post-Op Diagnosis Specimens none Anesthesia Type General Complications none Disposition Accompanied Patient To Recovery: No Disposition: Recovery Room Indications This is a 73-year-old female found to have severe bilateral internal carotid artery stenosis. She underwent a TCAR the left side and a redo on the left side. She is now admitted for a right TCAR. I have discussed the risks options and benefits of the procedure with the patient. The patient understands the risks options and benefits and agrees to the procedure. Description of Procedure The patient was taken to the operating room and placed in supine position. Afte r general anesthesia was accomplished the groins and right side of the neck and chest were prepped and draped in a sterile manner. Timeout was performed and the patient was identified. A transverse incision was made just above the clavicle between the heads of the sternocleidomastoid. This is carried down to where the common carotid artery was identified. It was isolated. It was slung with umbilical tape. Next the U stitch was placed in the common carotid artery with a 5-0 Prolene suture. Patient was given 8000 heparin at that time. Ultrasound was then used to localize the left common femoral vein. The vein was patent and compressed easily. Under ultrasound guidance the left common femoral vein was punctured and the venous sheath was inserted. This was aspirated and flushed with heparinized saline. ACT at that time was 324. Using micropuncture technique the common carotid artery was punctured. The micro sheath was inserted to 3 cm. Injection was then done showing the bifurcation. There was a significant lesion seen at the origin of the internal carotid artery on the right side. We then inserted the J-wire left and short of the lesion. The micro sheath was removed and the TCAR sheath was inserted. Once it was in place and held against the artery it was sutured to the chest wall and the incision edge. We then flushed the tubing appropriately. The venous return to was clamped onto the TCAR sheath. It was flushed through and then attached to the venous inflow sheath in the left groin. Sheath was checked for flow. The saline cleared nicely. The common carotid artery was then clamped. Flow reversal was instituted. We inserted a 5 x 25 balloon backloaded on the wire. The wire was passed through the lesion into the petrous portion of the internal carotid. The 5 balloon was then advanced to the lesion. Lesion was then predilated with a 5 mm balloon. Balloon was removed. We then inserted the 8/6 x 40 stent. This was deployed across the lesion without difficulty. The catheter was removed. Appeared to be still a slight amount of narrowing at the origin of the internal. We then inserted a 5.5 x 25 balloon and predilated this area. Smoother wall of the stent was then noted. The carotid was allowed to go 2 minutes with flow reversal. Completion angiogram was done at that time which showed a widely patent carotid stent. At that point the common carotid artery was unclamped. The venous return tubing was clamped and removed from the TCAR sheath. The blood was allowed to flow back into the venous system. Once this was completed the sheath was pulled from the groin and pressure was applied. The TCAR sheath was then removed and the 5-0 Prolene suture securely tied. The patient was given 25 mg of protamine. Hemostasis was noted of the puncture site. An ACT was then drawn. Once this was completed the sheath was pulled from the groin and pressure was applied. Wound was irrigated with saline solution. Adequate hemostasis was obtained of the wound. Once this was noted the wound was closed in usual fashion using a 3-0 Vicryl suture for the subcutaneous layer and a 4-0 subcuticular Vicryl suture for the skin edges. Wei mabond was used for dressing.The patient left the operation room in satisfactory condition and tolerated the procedure well. All needle and sponge counts were correct at the end of the procedure. Cierra Smith Pac assisted due to lack of resident availability and was necessary for positioning, draping, retraction, wound closure deep layers, subcutaneous tissue, and skin closure and was necessary for assisting with the case. I attest to the content of the Intraoperative Record and any orders documented therein. Any exceptions are noted below.
[2023-12-27] MEDS ORDERED: METOPROLOL TARTRATE 1 MG/ML VIAL IV ONE (09:45)
[2023-12-27] MEDS ORDERED: STAT IV Infusion **Titration per Protocol STA (11:08)
[2023-12-27] MEDS ORDERED: PHARMACY GLYCEMIC MGMT CONSULT PRN (11:08)
[2023-12-27] MEDS ORDERED: PHENYLEPHRINE/NSS 25 MG/250 ML BAG IV PRN (11:08)
[2023-12-27] MEDS ORDERED: PREMARIN VAG CRM 14 APPLN/30 GM TUBE PV SCH (11:08)
[2023-12-27] MEDS: oxyCODONE/ACETAMINOPHEN 5mg/325mg TAB PO PRN (11:26)
[2023-12-27] MEDS: LACTATED RINGER'S 1,000 ML IV SCH (12:15)
[2023-12-27] MEDS: INSULIN ASPART PER UNIT CHARGE SC SCH (12:35)
[2023-12-27] MEDS: LANTUS PER UNIT CHARGE SC ONE ×2 (12:35→13:16)
--- OUTSIDE RECORDS SUMMARY | 2023-12-27 13:05 | External Medical Summary | Continuity of Care Document ---
Author Name Unknown Organization [facility] [place] [address] Address [address] [place], [place] [id number] Care Team Providers Care Roughener Name Role Phone Torie Mcintyre Primary Care Physician [phone] [facility] [id number] Date(s): 11/27/23 - 11/27/23 [facility] [address], [address] [place] [address] [phone] Encounter Diagnosis Carotid stenosis, bilateral(Discharge Diagnosis) - 11/27/23 Discharge Disposition: Home or Self Care Attending Physician: MD Mcintyre Sapana Allergies, Adverse Reactions, Alerts Substance Criticality Severity Reaction Reaction Severity Status cefepime Metabolic encephalopathy Active Medications amLODIPine 2.5 mg oral tablet Start: [...] Daily, Disp# 90 tab, Refills: 3, Pharmacy: [id number] Start Date: 10/02/23 Status: Ordered Problem List Condition Confirmation Course Effective Dates Status Health St atus Informant Carotid stenosis, bilateral Confirmed Active Diagnosis Diagnosis Type Effective Dates Health Status Cl inical Service Informant Carotid stenosis, bilateral Discharge Diagnosis 11/27/23 Procedures Procedure Date Related Diagnosis Body Site Status left TCAR 08/29/23 Completed Cholecystectomy Completed Removal of ectopic fetus Completed Vital Signs Most recent to oldest [Reference Range]: 1 Heart Rate 82 bpm (11/27/23 3:04 PM) Blood Pressure 146/76mmHg (11/27/23 3:04 PM) Cuff Pulse Pressure 70 mmHg (11/27/23 3:04 PM) BP Location # 1 Left Arm (11/27/23 3:04 PM) Social History Social History Type Response Smoking Status Former Smoker, quit > 1 yr Sex Female Sex Representation Female (finding) Patient Care team information Care Team Personnel Name: MD Miguelina, Torie Position: Referring DIRECT Member Role: Primary Care Provider Address: [address] [place] [address] Name: EPHRAIM Smith Lynn Position: Physician Emergency Dispatcher Exempt - Vasc Surg Member Role: Lifetime Relationship Address: [address] [place] [id number]
--- NOTE | 2023-12-27 13:26 | Anesthesiology Progress Note ---
Date of Service December 27, 2023 Anesthesia Post Procedure Vital Signs Vital Signs: Temp Pulse Pulse Resp BP BP BP 12/27/23 12:00 36.6 C 55 L 20 96/69 L 116/44 L 12/27/23 11:20 36.5 C 57 L 20 127/86 110/40 L 12/27/23 11:05 64 18 112/70 110/73 12/27/23 10:30 36.4 C L 67 18 127/47 L 12/27/23 10:20 66 19 130/47 L 12/27/23 10:10 74 17 137/52 L 12/27/23 10:00 78 15 141/53 H 12/27/23 09:52 36.1 C L 79 15 148/56 H 12/27/23 06:26 175/96 H 165/92 H 12/27/23 06:12 36.6 C 82 18 138/107 H 188/95 H Pulse Ox O2 Del Method 12/27/23 12:00 97 Room Air 12/27/23 11:20 98 Room Air 12/27/23 11:05 95 Room Air 12/27/23 10:30 96 Room Air 12/27/23 10:20 96 Room Air 12/27/23 10:10 95 Room Air 12/27/23 10:00 95 Room Air 12/27/23 09:52 95 Room Air 12/27/23 06:26 12/27/23 06:12 97 Room Air Transfer of Care Handoff Completed per policy Notes Mental Status: alert / awake / arousable Patient Amnestic to Procedure: Yes Nausea / Vomiting: adequately controlled Pain: adequately controlled Airway Patency, RR, SpO2: stable & adequate BP & HR: stable & adequate Hydration State: stable & adequate Anesthetic Complications: no major complications apparent and Pt Satisfied with anesthetic care
[2023-12-27] MEDS: CLINDAMYCIN/D5W 600 MG/50 ML BAG IV SCH (13:48)
--- NOTE | 2023-12-27 13:49 | Pharmacy Report ---
Pharmacy Glycemic Short Note 2 - Date of Service December 27, 2023 - Glycemic Short BSG Results (Last 24 hours): 12/27/23 12/27/23 12/27/23 06:10 09:56 10:56 POC Glucose 139 H 193 H 172 H OUTPATIENT ANTIDIABETIC REGIMEN: * Basaglar 7 units SQ QAM * Metformin 500 mg BID * A1C: 6.4% (10/24/2023) ASSESSMENT: * Liv is a 73 YO F admitted following a transcarotid artery revascularization and with a history of T2DM. Pharmacy has been consulted to assist with glycemic management while inpatient. * Patient received no steroids pre-operatively, BSG was acceptable pre- operatively. Lantus was initiated at a regimen comparable to a weight based stress of 1 due to lack of steroid use. * Novolog was initiated with a regimen slightly tightened from a weight based stress of 2. PLAN FOR INPATIENT GLYCEMIC CONTROL: * Hold outpatient oral diabetes medications * Basal insulin * Lantus 5 units SQ post surgery and 0-10 units BID SQ starting at HS this PM (See eMAR for details) * Bolus insulin * NovoLog per scale ACHS or Q6hrs while NPO * Goal Range: Low 110 mg/dL - High 140 mg/dL * Correction Factor: 25 mg/dL/unit * Nutritional / Prandial insulin per carb ratio of 1 unit per 8 grams CHO consumed
--- NOTE | 2023-12-27 14:30 | Critical Care Consultation ---
Date of Consultation December 27, 2023 Assessment & Plan (1) Bilateral carotid artery stenosis: Postop day #0 status post right TCAR. Incision site appears been dry and intact. Will monitor neurovascular checks closely per vascular surgery recommendations. Radial arterial line in place to monitor hemodynamics closely. Defer antihypertensive regimen to vascular surgeon. Defer antiplatelets and anticoagulant per vascular surgery. (2) Hypertension: Antihypertensive regimen per vascular surgeon. (3) Tobacco abuse: Patient indicates that she quit smoking 2 years ago. Plan ICU service will continue to monitor patient while she remains under ICU status. Thank you for the consult and please call questions History of Present Illness Reason for Consultation: ICU monitoring her right TCAR Attending Physician: Ramakrishna Haddad MD History of Present Illness 72-year-old female who originally underwent a left TCAR in July and had restenosis of her carotid stent. She was having numbness and tingling was admitted to the hospitalist service. She is status post left TCAR revision today she underwent a right TCAR without any significant complications. She remains mildly bradycardic and is in a sinus rhythm. Allergies Allergy/AdvReac Type Severity Reaction Status Date / Time cefepime Allergy Severe delirium, Verified 12/27/23 06:09 confusion, hyponatremia Home Medications Medication Instructions Recorded Confirmed Type lancets 33 gauge (OneTouch Delica #100 ea 09/02/21 11/13/23 Rx Lancets) blood sugar diagnostic (OneTouch #100 ea 09/03/21 11/13/23 Rx Verio test strips) lancets 33 gauge (OneTouch Delica #100 ea 09/03/21 11/13/23 Rx Plus Lancet) pen needle, diabetic 32 gauge x #50 ea 09/03/21 11/13/23 Rx 5/32" (Pen Needle) amlodipine 2.5 mg tablet 2.5 mg PO QAM 08/03/23 12/27/23 History aspirin 81 mg tablet,delayed 81 mg PO QAM 08/03/23 12/27/23 History release losartan 25 mg tablet 25 mg PO QAM 08/03/23 12/27/23 History atorvastatin 40 mg tablet 40 mg PO QAM 08/08/23 12/27/23 History insulin glargine 100 unit/mL (3 7 unit subcut QAM 08/08/23 12/27/23 History mL) subcutaneous pen (Basaglar KwikPen U-100 Insulin) metformin 500 mg 24 hr 500 mg PO BID 08/08/23 12/27/23 History tablet,extended release (gastric retention) clopidogrel 75 mg tablet 75 mg PO QAM 08/15/23 12/27/23 History conjugated estrogens 0.625 mg/gram 0.625 mg vaginal 2XWK 12/13/23 12/27/23 History vaginal cream (Premarin) Patient History Medical History Diabetes mellitus, type 2 IDDM Hyponatremia History of cardiac monitoring following IN ER visit on 10/23/23, "patches placed" for 2 weeks by PCP due to ER d/c instructions Hx: UTI (urinary tract infection) 11/05/23 - treated with Cefepime orally, pt developed hyponatremia and delirium and treated at [facility] inpatient - resolved at this time. Stroke-like symptoms hx 10/23/23, went IN ER, "said it was a possible TIA, no residual effects"; had re-do TCAR left side 3 days later Pseudohyponatremia Carotid artery disease Hx of ectopic High cholesterol HTN (hypertension) CKD (chronic kidney disease) Stage 3 Follows with [facility] [place] [facility]i gaastra nephrology Surgical History History of transcarotid artery revascularization (TCAR) 07/2023, left 09/2023, re-do left TCAR S/P laparotomy for ectopic (unsure if she had a salpingectomy) History of cholecystectomy Family History Mother TIA (transient ischemic attack) FHx: carotid endarterectomy Other No family history of adverse response to anesthesia Social History Smoking Status: Former smoker Tobacco Type: Cigarettes Smoking End Date: 2021; Second Hand Exposure: No; Do You Dip or Chew Tobacco: No; Tobacco Cessation Education Requested by Patient: No Hx Alcohol Use: No Hx Substance Use: No Preferred Language: Sinhala Communication Ability: Effective Lead Business Systems Analyst Required: No Beliefs That Will Affect Care: None Current Living Situation: Family Current Living Situation Comment: lives with son Other Information That Helps Us Care for You: No Feels Safe at Home: Yes Safety Concerns: Feels Safe At This Time Assistive Devices: Walker Review of Systems Review of Systems: All systems reviewed & are unremarkable except as noted in HPI & below Physical Exam Physical Exam: Constitutional: Patient appears to be of their stated age. Patient is in no apparent distress. Patient is well-developed. Eyes: Pupils are equal round and reactive to light. Conjunctivae are normal. Anicteric sclera. Ears nose, mouth and throat: Mallampati class 2. Normal posterior oropharynx. Uvula is midline. Neck: Trachea is midline. Visual inspection is normal. Respiratory: Clear to auscultation bilaterally. No use of accessory muscles. No significant clubbing noted. Cardiovascular: Regular rate and rhythm. No murmurs. No edema. Right TCAR site is nonpulsatile. Dressing intact. No obvious bleeding. Right groin puncture site appears intact without pulsatility. Good distal pulses in the lower extremity Gastrointestinal: Normal bowel sounds, soft, nontender and nondistended. No hepatosplenomegaly noted. Musculoskeletal: No cyanosis. Patient is able to move all extremities. Strength is 5 out of 5 in the upper and lower extremities. Skin: No rashes, warm dry and intact. Neurologic: No obvious focal neurological deficits seen. Psychiatric: Alert and oriented x3 with a euthymic affect. Results & Data Results & Data Vital Signs (Past 12 Hours) Vital Signs Temp Pulse Pulse Pulse Resp BP BP 12/27/23 13:15 52 L 16 119/47 L 12/27/23 13:00 54 L 19 106/55 L 12/27/23 12:30 53 L 19 113/58 L 12/27/23 12:15 63 18 115/58 L 12/27/23 12:00 58 L 25 H 96/69 L 12/27/23 12:00 36.6 C 55 L 20 12/27/23 11:20 36.5 C 57 L 20 12/27/23 11:05 64 18 12/27/23 10:30 36.4 C L 67 18 12/27/23 10:20 66 19 12/27/23 10:10 74 17 12/27/23 10:00 78 15 12/27/23 09:52 36.1 C L 79 15 148/56 H 12/27/23 06:26 175/96 H 12/27/23 06:12 36.6 C 82 18 138/107 H BP BP Pulse Ox O2 Del Method 12/27/23 13:15 99 12/27/23 13:00 96 12/27/23 12:30 93 12/27/23 12:15 96 12/27/23 12:00 97 12/27/23 12:00 96/69 L 116/44 L 97 Room Air 12/27/23 11:20 127/86 110/40 L 98 Room Air 12/27/23 11:05 112/70 110/73 95 Room Air 12/27/23 10:30 127/47 L 96 Room Air 12/27/23 10:20 130/47 L 96 Room Air 12/27/23 10:10 137/52 L 95 Room Air 12/27/23 10:00 141/53 H 95 Room Air 12/27/23 09:52 95 Room Air 12/27/23 06:26 165/92 H 12/27/23 06:12 188/95 H 97 Room Air Coding Level of Care Code 33843 IN/OBS CONSULT LVL 3,45M Diagnoses Bilateral carotid artery stenosis I65.23 Hypertension I10 Tobacco abuse Z72.0
[2023-12-27] MEDS: LANTUS PER UNIT CHARGE SC SCH (20:14)
[2023-12-27] MEDS ORDERED: Nursing to Pharmacy Communication SCH (20:30)
[2023-12-28 00:27] VITALS: TEMP 98.2
[2023-12-28] MEDS: ASPIRIN 81 MG ECTAB PO SCH (08:31)
[2023-12-28] MEDS: ATORVASTATIN 40 MG TAB PO SCH (08:31)
[2023-12-28] MEDS: LOSARTAN POTASSIUM 25 MG TAB PO SCH (08:31)
[2023-12-28] MEDS: amLODIPine BESYLATE 5 MG TAB PO SCH (08:31)
[2023-12-28] MEDS: CLOPIDOGREL BISULFATE 75 MG TAB PO SCH (08:31)
[2023-12-28] MEDS ORDERED: NON-FORMULARY MEDICATION (Insulin Glargine [Basaglar Kwikpen U-100 Insulin] 100 unit/mL (3 SQ SCH (09:00)
[2023-12-28 09:04] VITALS: RESP 16; O2SAT 92
--- NOTE | 2023-12-28 13:05 | Surgery Progress Note ---
Date of Service December 28, 2023 Assessment & Plan (1) Stenosis of left internal carotid artery: Plan: Patient POD #1 from a right tcar. Doing well with no complications. D\C today. Admission and Anticipated Discharge Date Admission Date: December 27, 2023 Subjective Patient complaining of mild incisional pain. Denies any focal neuro deficits. Physical Exam Constitutional: WD/WN, vitals as above Neck: trachea midline Respiratory: normal respiratory effort; no respiratory distress Cardiovascular: Rate/Rhythm: regular rate and regular rhythm Skin: + incision Neurologic: CN's II-XI intact bilaterally and moves all extremities Psychiatric: A+Ox3, euthymic affect Results & Data Vital Signs (Past 12 Hours) Vital Signs Temp Pulse Resp BP Pulse Ox O2 Del Method 12/28/23 08:24 53 L 16 104/49 L 92 Room Air 12/28/23 08:00 55 L 12/28/23 06:00 104/45 L 12/28/23 05:57 50 L 12 94 12/28/23 05:00 115/53 L 12/28/23 05:00 52 L 12 12/28/23 04:01 101/43 L 12/28/23 04:00 50 L 12 94 Room Air 12/28/23 04:00 36.8 C 12/28/23 03:45 51 L 12 94 12/28/23 02:00 54 L 13 93 12/28/23 01:15 53 L 13 94
--- NOTE | 2023-12-28 13:11 | Discharge Summary ---
Date of Service December 28, 2023 Admission HPI Per Admitting Provider Subjective I had the pleasure of seeing Liv today for follow-up. As you know she is a 73-year-old female who had a left TCAR done in the past. She was to have a left TCAR done when she developed a UTI and treated with cefepime. She ended up with encephalopathy from the cefepime. Once the antibiotic was stopped her mentation cleared up completely and she is back to baseline. She is here today to schedule for her right TCAR. She has no complaints of cerebrovascular insufficiency. Objective Vitals & Measurements HR: 82 (Monitored) BP: 146/76 SpO2: 98% Physical Exam On exam patient is awake alert and oriented x 3. He is in no apparent distress. Vitals are +2 bilaterally. Neurologic exam grossly intact motor and sensory function. A blood pressure 146/76. Left TCAR incision is healed nicely. Lungs are clear. Heart has a RRR. Abdominal exam is neg. Assessment/Plan 1. Carotid stenosis, bilateral At this point we will go ahead and schedule for right TCAR. She understands the risks options benefits. These are documented in the consent form. She is agreeable to go ahead with the procedure. Thank you very much for letting us participate in the care of this patient. Sincerely, Sanjana Haddad MD Signature Line Electronic Signature on File Ramakrishna Haddad MD Author Signature Dt/Tm: 11/27/2023 03:28 PM Ground Equipment Mechanic Gerardo Baxter [facility] [place], [address] [place] [address] EJS Result Type: .Outpt Ltr Date of Service: November 27, 2023 15:25 EDT Authorization Status: Final Subject: Follow Up Visit Author or Import Date: MD Haddad Eugene J on November 27, 2023 15:28 EDT Verified By: MD Haddad Eugene J on November 27, 2023 15:28 EDT Encounter info: [id number], [facility], Clinic, 11/27/2023 - 11/27/2023 Admission Exam Per Admitting Provider On exam patient is awake alert and oriented x 3. He is in no apparent distress. Vitals are +2 bilaterally. Neurologic exam grossly intact motor and sensory function. A blood pressure 146/76. Left TCAR incision is healed nicely. Lungs are clear. Heart has a RRR. Abdominal exam is neg. Principal Diagnosis Right internal carotid artery stenosis Discharge Exam Constitutional WD/WN, vitals as above Neck trachea midline Respiratory normal respiratory effort; no respiratory distress Cardiovascular Rate/Rhythm: regular rate and regular rhythm Skin + incision Neurologic CN's II-XI intact bilaterally and moves all extremities Psychiatric A+Ox3, euthymic affect Discharge Data Allergies Allergy/AdvReac Type Severity Reaction Status Date / Time cefepime Allergy Severe delirium, Verified 12/27/23 06:09 confusion, hyponatremia Consultations 12/27/23 11:08 Consult Mandrel Press Hand Routine Procedures Performed Operation Date: 12/27/23 08:00 Actual Procedures p Right Transcarotid Artery Revascularization(Right) - Ramakrishna Haddad MD Ordered Studies 12/27/23 07:06 EV angio carotid cerv RT Routine US EV guide vascular access Routine Hospital Course (1) Stenosis of left internal carotid artery: Patient POD #1 from a right tcar. Doing well with no complications. D\\C today. Total Time Total Time Spent Total Time Spent (In Minutes): 0 Discharge Plan Discharge Items Patient Disposition: Home - Self-Care Reason For Visit: Right Carotid Artery Stenosis Discharge Diagnosis: Right internal carotid artery stenosis Activity: Per Instructions section Non-emergency contact: Surgeon Call non-emergency contact if: your temperature is above 101.5, your wound has increased redness, your wound has increased drainage and your wound pain has increased Follow-up/Referrals: Torie Mcintyre MD [Primary Care Provider] - Diet: Carb Consistent or DM2 and Heart Healthy Addtl Attending Provider Instructions: SPECIAL CARE INSTRUCTIONS: Medications: * Continue to take Aspirin, Plavix, and statin as directed. Incision Care: * You may shower, but do not rub incision. You may let the warm soapy water run over it. Be sure to dry the incision well after bathing. * Do not shave directly over the incision until it is healed. * DO NOT IMMERSE THE INCISION IN A TUB/POOL/etc. UNTIL HEALED. Restrictions: * Do not drive for at least one week or if you are still taking any narcotic pain medication. * Do not lift anything heavier than a gallon of milk for one week after going home. Possible Complications: * Numbness - It is normal to have some numbness around the incision. Numbness can extend beyond the incision to areas of the neck, ear and face. The numbness is due to bruising of nerves during the surgery and will gradually improve over a period of months. * Hoarseness/Difficulty Speaking and Swallowing - The bruising of nerves in the neck can also cause a hoarse voice, difficulty speaking or swallowing. This may improve over time, HOWEVER, if it continues for more than a few days please contact our office ([phone]). * Excessive Swelling - There will be some swelling immediately after surgery which usually resolves within one week. If you notice that the swelling is getting worse, notify your surgeon ([phone]). * Drainage/Bleeding - If there is any drainage or bleeding, it should be a very small amount (less than a teaspoon per day). If you have excessive bleeding or drainage from the incision, call your surgeon ([phone]) right away. ACTIVATION OF EMERGENCY MEDICAL SYSTEM: Call 911, immediately, if you experience any of the following: Warning Signs and Symptoms of Stroke: * Sudden numbness or weakness of the face, arm or leg, especially on one side of the body * Sudden confusion, trouble speaking or understanding * Sudden trouble seeing in one or both eyes * Sudden trouble walking, dizziness, loss of balance or coordination * Sudden severe headache with no cause Do not delay calling 911 if you experience any warning signs or symptoms of a stroke. Delay in seeking medical attention may affect what treatments can be given to you. Risk Factors for Stroke: You can reduce your chances of stroke by working with your medical provider to adopt a healthy lifestyle. Some specific ways to lower your chance of stroke are: * If you are a smoker, now is the time to stop smoking cigarettes * If you are diabetic, improve the control of your blood sugars * Avoid excessive amounts of alcohol * Control high blood pressure * Lose weight if you are overweight * Be sure to lead an active lifestyle * Eat a healthy diet low in salt, cholesterol and fat You should know about other risk factors for stroke that you are unable to control. These include: * Age 55 years or older * Male gender * Certain racial groups: , or / * Family History of Stroke, Mini stroke or Heart Attack * Sickle Cell Disease You will be receiving a call from the Vascular Surgery Nurse after you are discharged. FOLLOW UP VISIT: It is important for you to keep your follow up appointments with your medical provider. Keep any scheduled doctor appointments. Call [phone] to schedule a follow up appointment if one not already scheduled. Pending Studies at Discharge: No Stand-Alone Forms: [facility], Smoking Cessation Medications and DC Order Prescriptions: New oxycodone-acetaminophen [Percocet] 5-325 mg tablet 1 tab PO Q8H PRN (Reason: pain) Qty: 10 0RF Continued (DME) lancets [OneTouch Delica Lancets] 33 gauge misc See Rx Instructions .Route Qty: 100 0RF Rx Instructions: As directed (DME) lancets [OneTouch Delica Plus Lancet] 33 gauge misc See Rx Instructions .Route Qty: 100 0RF Rx Instructions: TID (DME) pen needle, diabetic [Pen Needle] 32 gauge x 5/32" needle See Rx Instructions .Route Qty: 50 0RF Rx Instructions: once daily (DME) OneTouch Verio test strips Strip See Rx Instructions .Route Qty: 100 0RF Rx Instructions: tid Premarin 0.625 mg/gram Cream 0.625 mg VAGINAL 2XWK amlodipine 2.5 mg Tablet 2.5 mg PO QAM aspirin 81 mg Tablet,Delayed Release (Dr/Ec) 81 mg PO QAM Rx Instructions: otc unable to verify losartan 25 mg Tablet 25 mg PO QAM metformin 500 mg tablet,ER tabitha.retention 24 hr 500 mg PO BID Rx Instructions: original: 500 mg po bid With Dinner insulin glargine [Basaglar KwikPen U-100 Insulin] 100 unit/mL (3 mL) insulin pen 7 unit subcut QAM Rx Instructions: original: 7 units subcut qam per pharmacy 13 units atorvastatin 40 mg Tablet 40 mg PO QAM clopidogrel 75 mg Tablet 75 mg PO QAM Discharge Orders: Discharge Order (Routine); Ordered 12/28/23 Ordered By: Ramakrishna Haddda Admission Data Admit Date/Time: 12/27/23 07:28 Attending Provider: Ramakrishna Haddad Admit Provider: Ramakrishna Haddad Primary Care Provider: Torie Mcintyre Other Providers: Patrice Vazquez; Clayton Soto; Moris Frazier; Delfin Gonzalez; Lencho Long; Jerri Walker; Bradford Feldman; Amanda Borges; Aggie Sands; Harrison Tiwari; Segun López; Marissa Bardales
[2023-12-28 13:29] VITALS: BP 148/56; PULSE 82
== END 2023-12-28 14:04 | disposition home or self-care (01) | DRG 36 ==
LOC: ASU 05:46 → 1E 07:28
PROC: EV.TCAR (2023-12-27 08:00)